=== PATIENT | female | born 1960 | race Caucasian/White ===

== ENCOUNTER 2021-03-03 15:42 | Inpatient (IN) | payer OTHER, SELFPAY ==
[2021-03-03] VITALS (15 sets, daily range): BP systolic 110–143; BP diastolic 73–87; PULSE 71–112; RESP 16–24; TEMP 36.6–38.3; O2SAT 96–100; BMI 24.2
--- NOTE | 2021-03-03 16:13 | DI.RAD.S_ITS ---
PROCEDURE: XR CHEST 1V INDICATIONS: suspected sepsis TECHNIQUE: One view of the chest was acquired. COMPARISON: None. FINDINGS: Surgical changes and devices: Right Port-A-Cath is present with distal tip projecting over the proximal SVC. Lungs and pleura: Lungs are clear. No pleural effusions or pneumothorax. Mediastinum: Mediastinal contours appear normal. Heart size is normal. Bones and chest wall: No suspicious bony lesions. Overlying soft tissues appear unremarkable. IMPRESSION: Lungs are clear. Dictated by: Brenda Warner M.D. on 03/03/2021 at 16:48 Approved by: Brenda Warner M.D. on 03/03/2021 at 16:48
--- NOTE | 2021-03-03 16:14 | DI.CT.S_ITS ---
PROCEDURE: CT CHEST ABD PEL WO CON INDICATIONS: fever, jaundice TECHNIQUE: After the administration of oral contrast, 5 mm thick sections acquired from the lung apices to the symphysis pubis. 5 mm thick coronal and sagittal reformats acquired, with additional 7 mm coronal MIP reformats through the lungs. For radiation dose reduction, the following was used: automated exposure control, adjustment of mA and/or kV according to patient size. COMPARISON: None. FINDINGS: Image quality: Excellent. CHEST: There is no acute airspace opacity. No significant pleural abnormality. Normal heart size. No pericardial effusion. Normal caliber thoracic aorta and main pulmonary trunk. Right chest wall central venous port catheter terminates in the SVC. No threshold enlarged thoracic lymph node by CT size criteria. No suspicious lytic or blastic osseous chest wall lesion. ABDOMEN: Unremarkable CT appearance of the liver, gallbladder, adrenal glands, and kidneys. There is fat stranding surrounding the head of the pancreas and in the remainder of the retroperitoneum with shoddy lymphadenopathy in this region. This is nonspecific, potentially representing appearance due to treated lymphoma, although would be difficult without prior imaging to exclude a recurrent or progressive component of lymphoma in this region. No abnormally dilated or thickened loop of bowel. There is fluid/liquid stool throughout the large bowel which may indicate a diarrheal illness. No pneumoperitoneum or free fluid. PELVIS: No free fluid. Uterus, adnexa, and urinary bladder within normal limits. No threshold enlarged pelvic or inguinal lymph node by CT size criteria. IMPRESSION: Fat stranding surrounding the pancreas with additional fat stranding in the retroperitoneum surrounding the aorta and IVC. Shotty lymphadenopathy in these regions is also present. Although considered unlikely, this could represent pancreatitis; correlate with lipase levels. It is considered more likely that these findings are due to the provided history of lymphoma. It is unknown without prior studies if this represents active lymphoma or chronic findings due to treated lymphoma, both of which can cause this appearance. Dictated by: Ketan Myers M.D. on 03/03/2021 at 18:03 Approved by: Ketan Myers M.D. on 03/03/2021 at 18:09
--- NOTE | 2021-03-03 16:14 | DI.CT.S_ITS ---
PROCEDURE: CT HEAD/BRAIN WO CON INDICATIONS: fever, vomiting TECHNIQUE: Noncontrast 4.5 mm thick angled axial sections acquired from the foramen magnum to the vertex, with coronal and sagittal reformats. For radiation dose reduction, the following was used: automated exposure control, adjustment of mA and/or kV according to patient size. COMPARISON: None. FINDINGS: Image quality: Excellent. CSF spaces: Basal cisterns are patent. No extra-axial fluid collections. The ventricles are symmetric in size and shape. Brain: No intracranial bleeds or masses. There is cerebral volume loss for age, with resultant ventricular and sulcal prominence. There are periventricular and deep white matter chronic small vessel ischemic changes. There is intracranial internal carotid artery atherosclerosis. Skull and face: Calvarium and visualized facial bones appear intact, without suspicious lesions. Sinuses: Visualized sinuses and mastoids are clear. IMPRESSION: No acute intracranial abnormality. Dictated by: Ketan Myers M.D. on 03/03/2021 at 17:27 Approved by: Ketan Myers M.D. on 03/03/2021 at 17:27
--- NOTE | 2021-03-03 16:15 | ED_ITS ---
HPI - Sepsis General Chief Complaint: Fever Mode of arrival: Wheelchair Source: patient and family Limitations: altered mental status Evaluation Narrative: This is a 60-year-old female who is brought in by her for possible fever and weakness for 2 days. Patient's states she has just been less activ e. She had a fever of 101 F at home. She did throw up on her way here on the. She has had several episodes of diarrhea. She denies headache. She denies chest pain or shortness of breath. She denies any abdominal back or flank pain. Her notes she has a history of meningitis several years ago and he thought this seems somewhat similar. She also has a history of cancer, she completed her treatment completed her oral medication treatment but does still have a port in place. Review of Systems Review of Systems ROS Unobtainable: Unobtainable due to medical condition Patient History Medical History Mantle cell lymphoma Social History Smoking Status: Never smoker Exam Narrative Exam Narrative: GEN: Female, alert and oriented, patient appears to be in moderate distress. Patient does answer questions but is not very forthcoming. She appears jaundiced. HEENT: Atraumatic, pupils are equal round reactive to light, extraocular movements are intact, no scleral icterus appreciated, nares are clear, TMs are clear with no fluid, there is no conjunctival pallor. Conjunctivae are slightly injected. Throat is clear without any exudates, erythema, tonsillar enlargement or uvular deviation HEART: Tachycardic but Regular rate and rhythm without murmur, clicks, rubs. Pulses are equal in upper and lower extremities LUNGS:Lungs clear to auscultation, no wheezes, rales, crackles, chest moves symmetrically, no tachypnea accessory muscle use. ABD:bowel sounds normal, soft, non-tender, no guarding, rebound, rigidity, no masses noted, no hepatosplenomegaly :No CVA tenderness MSCL: Non-tender, no muscle atrophy, patient does move extremities independently. NEURO:CN 2-12 intact, sensation normal, reflexes 2/4 upper and lower extremities. SKIN: Patient appears slightly jaundiced. No petechia, ecchymosis or other changes appreciated. Initial Vital Signs Initial Vital Signs: Vital Signs Temperature 98 F 03/03/21 16:14 Pulse Rate 112 H 03/03/21 16:14 Respiratory Rate 17 03/03/21 16:14 Blood Pressure 110/73 03/03/21 16:14 Pulse Oximetry 96 03/03/21 16:14 Course Orders Ordered: ED Orders 03/04/21 17:02 Gram Stain BC#2 Stat Gram Stain Pos BC Stat Acetaminophen (Acetaminophen 325 Mg Tablet) 650 mg PO Q6HR PRN PRN Reason: Fever/Mild Pain (1-3) Heparin Sodium (Porcine) (Heparin 5,000 Unit/Ml Vial) 5,000 unit SUBCUT BID DEZ Last Admin: 03/03/21 22:45 Dose: 5,000 unit Documented by: HUMPHREY Heparin Sodium (Porcine) (Heparin 5,000 Unit/Ml Vial) 5,000 unit SUBCUT BID DEZ Sodium Chloride (Normal Saline 0.9%) 1,000 mls @ 100 mls/hr IV CONT DEZ Last Admin: 03/03/21 22:57 Dose: 100 mls/hr Documented by: HUMPHREY Ceftriaxone Sodium 2 mg/ (Sodium Chloride) 100 mls @ 200 mls/hr IV Q24H DEZ Naloxone HCl (Naloxone 0.4 Mg/Ml Vial) 0.2 mg IV Q2MIN PRN PRN Reason: Opiate Reversal Ondansetron HCl (Ondansetron 4 Mg/2 Ml Inj) 4 mg IV Q6HR PRN PRN Reason: Nausea And Vomiting Last Admin: 03/03/21 18:02 Dose: 4 mg Documented by: NKECHI Ondansetron HCl (Ondansetron 4 Mg/2 Ml Inj) 4 mg IV Q8HR PRN PRN Reason: Nausea And Vomiting Vancomycin HCl (Vancomycin Per Pharmacy) 1 request MISC NOW ONE Stop: 03/04/21 06:40 Discontinued Medications Fluconazole (Fluconazole 150 Mg Tablet) 150 mg PO NOW ONE Stop: 03/04/21 00:44 Sodium Chloride (Normal Saline 0.9%) 1,000 mls @ 1,000 mls/hr IV BOLUS ONE Stop: 03/03/21 17:12 Last Infusion: 03/03/21 17:45 Dose: 0 mls/hr Documented by: Admin: 03/03/21 16:47 Dose: 1,000 mls/hr Documented by: LOIDA Sodium Chloride (Normal Saline 0.9%) 1,000 mls @ 1,000 mls/hr IV BOLUS ONE Stop: 03/03/21 17:13 Last Infusion: 03/03/21 20:01 Dose: 0 mls/hr Documented by: Admin: 03/03/21 17:47 Dose: 1,000 mls/hr Documented by: NKECHI Piperacillin Sod/Tazobactam (Sod 4.5 gm/ Sodium Chloride) 100 mls @ 200 mls/hr IV NOW ONE Stop: 03/03/21 17:49 Last Infusion: 03/03/21 18:52 Dose: 0 mls/hr Documented by: Infusion: 03/03/21 18:22 Dose: 200 mls/hr Documented by: Infusion: 03/03/21 17:58 Dose: 0 mls/hr Documented by: Admin: 03/03/21 17:58 Dose: 200 mls/hr Documented by: NKECHI POTASSIUM CHLORIDE IN WATER (Potassium Cl 10 Meq/100 Ml Aranza) 10 meq in 100 mls @ 100 mls/hr IV Q1H DEZ Stop: 03/03/21 21:59 Last Infusion: 03/04/21 01:18 Dose: 0 mls/hr Documented by: Admin: 03/03/21 22:49 Dose: 100 mls/hr Documented by: Infusion: 03/03/21 22:05 Dose: 100 mls/hr Documented by: Infusion: 03/03/21 21:06 Dose: 100 mls/hr Documented by: Admin: 03/03/21 21:05 Dose: 100 mls/hr Documented by: Infusion: 03/03/21 21:04 Dose: 0 mls/hr Documented by: Admin: 03/03/21 20:08 Dose: 100 mls/hr Documented by: Infusion: 03/03/21 20:01 Dose: 0 mls/hr Documented by: Admin: 03/03/21 19:01 Dose: 100 mls/hr Documented by: NKECHI Vancomycin HCl/Dextrose (Vancomycin) 2,000 mg in 400 mls @ 200 mls/hr IV NOW ONE Stop: 03/03/21 20:32 Last Infusion: 03/04/21 01:18 Dose: 0 mls/hr Documented by: Admin: 03/03/21 20:09 Dose: 200 mls/hr Documented by: LOIDA Fluconazole (Diflucan) 100 mg in 50 mls @ 100 mls/hr IV NOW ONE Stop: 03/03/21 21:15 Last Admin: 03/04/21 01:14 Dose: Not Given Documented by: HUMPHREY Ceftriaxone Sodium 1,000 mg/ (Sodium Chloride) 100 mls @ 200 mls/hr IV Q24H [facility] Last Infusion: 03/04/21 01:18 Dose: 0 mls/hr Documented by: Admin: 03/03/21 23:52 Dose: 200 mls/hr Documented by: HUMPHREY POTASSIUM CHLORIDE IN WATER (Potassium Cl 10 Meq/100 Ml Aranza) 10 meq in 100 mls @ 100 mls/hr IV Q1H DEZ Stop: 03/04/21 06:59 Last Admin: 03/04/21 06:36 Dose: 100 mls/hr Documented by: Infusion: 03/04/21 06:34 Dose: 100 mls/hr Documented by: Admin: 03/04/21 05:34 Dose: 100 mls/hr Documented by: Infusion: 03/04/21 05:32 Dose: 100 mls/hr Documented by: Admin: 03/04/21 04:32 Dose: 100 mls/hr Documented by: Infusion: 03/04/21 04:27 Dose: 100 mls/hr Documented by: Admin: 03/04/21 03:27 Dose: 100 mls/hr Documented by: Infusion: 03/04/21 03:23 Dose: 100 mls/hr Documented by: Admin: 03/04/21 02:23 Dose: 100 mls/hr Documented by: Infusion: 03/04/21 02:20 Dose: 100 mls/hr Documented by: Admin: 03/04/21 01:20 Dose: 100 mls/hr Documented by: HUMPHREY Potassium Chloride (Potassium Chloride 20 Meq Tab) 40 meq PO NOW ONE Stop: 03/04/21 00:53 Vital Signs Vital signs: Vital Signs - 8 hr 12/01/21 16:14 Temperature 98 F Pulse Rate 112 H Respiratory Rate 17 Blood Pressure 110/73 Pulse Oximetry 96 Sepsis Guideline Criteria Treatment Initiated Antibiotics:: IV antimicrobials will be initiated as soon as possible after recognition of sepsis state and within one hour for both sepsis and septic shock. MDM - Sepsis Lab Data Result diagrams: 03/04/21 06:46 03/04/21 06:46 Labs: Lab Results 03/03/21 03/03/21 03/03/21 Range/Units 16:10 17:02 17:02 WBC 18.8 H (4.5-11.0) X10^3/uL RBC 5.14 (4.0-5.2) X10^6/uL Hgb 14.3 (12.0-16.0) g/dL Hct 43.5 (36-46) % MCV 84.6 (80-100) fL MCH 27.9 (26-34) PG MCHC 33.0 (30-36) % RDW 17.2 H (11.6-14.8) % Plt Count 143 L (150-400) X10^3/uL Neut % (Auto) Not Reportable Lymph % (Auto) Not Reportable Stanly % (Auto) Not Reportable Eos % (Auto) Not Reportable Baso % (Auto) Not Reportable Lymph # (Auto) Not Reportable Stanly # (Auto) Not Reportable Baso # (Auto) Not Reportable Total Counted 100 Seg Neutrophils % 45.0 (38-70) % Band Neutrophils % 26.0 H (3-7) % Lymphocytes % (Manual) 13.0 L (25-45) % Monocytes % (Manual) 11.0 (2-11) % Metamyelocytes % 5.0 H (-0) % Neutrophils # (Manual) 14360 H (0034-9546) /uL RBC Morphology See below Poikilocytosis 1+ H Anisocytosis 1+ H PT (10.1-12.7) SECONDS INR (0.9-1.3) APTT (26.4-36.2) SECONDS Sodium 137 (137-145) mmol/L Potassium 3.0 L (3.4-5.1) mmol/L Chloride 98 (98-107) mmol/L Carbon Dioxide 25 (22-32) mmol/L BUN 37 H (7-17) mg/dL Creatinine 1.68 H (0.52-1.04) mg/dL Estimated GFR 30.9 L (>60) mL/min BUN/Creatinine Ratio 22.0 (6-22) Glucose 168 H (80-110) mg/dL Lactate (0.7-2.1) mmol/L Calcium 8.5 (8.4-10.2) mg/dL Total Bilirubin 0.7 (0.2-1.3) mg/dL AST 98 H (14-36) IU/L ALT 48 H (<35) IU/L Alkaline Phosphatase 85 (38-126) U/L Ammonia (9-30) umol/L Total Creatine Kinase (30-135) U/L CK-MB (CK-2) (<2.37) ng/mL CK-MB (CK-2) Rel Index (1.5-5.0) % Troponin I (0.01-0.034) ng/mL Total Protein 7.0 (6.3-8.2) g/dL Albumin 4.1 (3.5-5.0) g/dL Globulin 2.9 (1.7-4.1) g/dL Albumin/Globulin Ratio 1.4 (1.0-2.8) Amylase (30-110) U/L Lipase 67 (23-300) U/L Procalcitonin 51.4 H (<0.5) ng/mL Urine Color Urine Appearance Urine pH (4.5-8.0) Ur Specific [place] (1.000-1.035) Urine Protein (Negative) Urine Glucose (UA) (Negative) g/dL Urine Ketones (NEGATIVE) Urine Occult Blood (Negative) Urine Nitrate (Negative) Urine Bilirubin (NEGATIVE) Urine Urobilinogen (0.2) E.U./dL Ur Leukocyte Esterase (NEGATIVE) Urine RBC (0-5/HPF) Urine WBC (0-5/HPF) Ur Squamous Epith Cells (0-5/HPF) Amorphous Sediment Urine Bacteria (None) Urine Mucus (Negative) Urine Yeast (None) Ur Culture Indicated? Ethyl Alcohol ( - 10) mg/dL SARS-CoV-2 (PCR) Negative (Negative) 03/03/21 03/03/21 03/03/21 Range/Units 17:02 17:02 17:02 WBC (4.5-11.0) X10^3/uL RBC (4.0-5.2) X10^6/uL Hgb (12.0-16.0) g/dL Hct (36-46) % MCV (80-100) fL MCH (26-34) PG MCHC (30-36) % RDW (11.6-14.8) % Plt Count (150-400) X10^3/uL Neut % (Auto) Lymph % (Auto) Stanly % (Auto) Eos % (Auto) Baso % (Auto) Lymph # (Auto) Stanly # (Auto) Baso # (Auto) Total Counted Seg Neutrophils % (38-70) % Band Neutrophils % (3-7) % Lymphocytes % (Manual) (25-45) % Monocytes % (Manual) (2-11) % Metamyelocytes % (-0) % Neutrophils # (Manual) (9230-1368) /uL RBC Morphology Poikilocytosis Anisocytosis PT 21.3 H (10.1-12.7) SECONDS INR 1.9 H (0.9-1.3) APTT 36 (26.4-36.2) SECONDS Sodium (137-145) mmol/L Potassium (3.4-5.1) mmol/L Chloride (98-107) mmol/L Carbon Dioxide (22-32) mmol/L BUN (7-17) mg/dL Creatinine (0.52-1.04) mg/dL Estimated GFR (>60) mL/min BUN/Creatinine Ratio (6-22) Glucose (80-110) mg/dL Lactate 3.4 H (0.7-2.1) mmol/L Calcium (8.4-10.2) mg/dL Total Bilirubin (0.2-1.3) mg/dL AST (14-36) IU/L ALT (<35) IU/L Alkaline Phosphatase (38-126) U/L Ammonia (9-30) umol/L Total Creatine Kinase 343 H (30-135) U/L CK-MB (CK-2) 0.92 (<2.37) ng/mL CK-MB (CK-2) Rel Index 0.3 L (1.5-5.0) % Troponin I 0.013 (0.01-0.034) ng/mL Total Protein (6.3-8.2) g/dL Albumin (3.5-5.0) g/dL Globulin (1.7-4.1) g/dL Albumin/Globulin Ratio (1.0-2.8) Amylase (30-110) U/L Lipase (23-300) U/L Procalcitonin (<0.5) ng/mL Urine Color Urine Appearance Urine pH (4.5-8.0) Ur Specific [place] (1.000-1.035) Urine Protein (Negative) Urine Glucose (UA) (Negative) g/dL Urine Ketones (NEGATIVE) Urine Occult Blood (Negative) Urine Nitrate (Negative) Urine Bilirubin (NEGATIVE) Urine Urobilinogen (0.2) E.U./dL Ur Leukocyte Esterase (NEGATIVE) Urine RBC (0-5/HPF) Urine WBC (0-5/HPF) Ur Squamous Epith Cells (0-5/HPF) Amorphous Sediment Urine Bacteria (None) Urine Mucus (Negative) Urine Yeast (None) Ur Culture Indicated? Ethyl Alcohol ( - 10) mg/dL SARS-CoV-2 (PCR) (Negative) 03/03/21 03/03/21 03/03/21 Range/Units 17:02 17:02 17:02 WBC (4.5-11.0) X10^3/uL RBC (4.0-5.2) X10^6/uL Hgb (12.0-16.0) g/dL Hct (36-46) % MCV (80-100) fL MCH (26-34) PG MCHC (30-36) % RDW (11.6-14.8) % Plt Count (150-400) X10^3/uL Neut % (Auto) Lymph % (Auto) Stanly % (Auto) Eos % (Auto) Baso % (Auto) Lymph # (Auto) Stanly # (Auto) Baso # (Auto) Total Counted Seg Neutrophils % (38-70) % Band Neutrophils % (3-7) % Lymphocytes % (Manual) (25-45) % Monocytes % (Manual) (2-11) % Metamyelocytes % (-0) % Neutrophils # (Manual) (2507-6136) /uL RBC Morphology Poikilocytosis Anisocytosis PT (10.1-12.7) SECONDS INR (0.9-1.3) APTT (26.4-36.2) SECONDS Sodium (137-145) mmol/L Potassium (3.4-5.1) mmol/L Chloride (98-107) mmol/L Carbon Dioxide (22-32) mmol/L BUN (7-17) mg/dL Creatinine (0.52-1.04) mg/dL Estimated GFR (>60) mL/min BUN/Creatinine Ratio (6-22) Glucose (80-110) mg/dL Lactate (0.7-2.1) mmol/L Calcium (8.4-10.2) mg/dL Total Bilirubin (0.2-1.3) mg/dL AST (14-36) IU/L ALT (<35) IU/L Alkaline Phosphatase (38-126) U/L Ammonia < 9 L (9-30) umol/L Total Creatine Kinase (30-135) U/L CK-MB (CK-2) (<2.37) ng/mL CK-MB (CK-2) Rel Index (1.5-5.0) % Troponin I (0.01-0.034) ng/mL Total Protein (6.3-8.2) g/dL Albumin (3.5-5.0) g/dL Globulin (1.7-4.1) g/dL Albumin/Globulin Ratio (1.0-2.8) Amylase 50 (30-110) U/L Lipase (23-300) U/L Procalcitonin (<0.5) ng/mL Urine Color Urine Appearance Urine pH (4.5-8.0) Ur Specific [place] (1.000-1.035) Urine Protein (Negative) Urine Glucose (UA) (Negative) g/dL Urine Ketones (NEGATIVE) Urine Occult Blood (Negative) Urine Nitrate (Negative) Urine Bilirubin (NEGATIVE) Urine Urobilinogen (0.2) E.U./dL Ur Leukocyte Esterase (NEGATIVE) Urine RBC (0-5/HPF) Urine WBC (0-5/HPF) Ur Squamous Epith Cells (0-5/HPF) Amorphous Sediment Urine Bacteria (None) Urine Mucus (Negative) Urine Yeast (None) Ur Culture Indicated? Ethyl Alcohol < 10 ( - 10) mg/dL SARS-CoV-2 (PCR) (Negative) 03/03/21 03/03/21 03/03/21 Range/Units 18:47 19:49 20:31 WBC (4.5-11.0) X10^3/uL RBC (4.0-5.2) X10^6/uL Hgb (12.0-16.0) g/dL Hct (36-46) % MCV (80-100) fL MCH (26-34) PG MCHC (30-36) % RDW (11.6-14.8) % Plt Count (150-400) X10^3/uL Neut % (Auto) Lymph % (Auto) Stanly % (Auto) Eos % (Auto) Baso % (Auto) Lymph # (Auto) Stanly # (Auto) Baso # (Auto) Total Counted Seg Neutrophils % (38-70) % Band Neutrophils % (3-7) % Lymphocytes % (Manual) (25-45) % Monocytes % (Manual) (2-11) % Metamyelocytes % (-0) % Neutrophils # (Manual) (8295-3940) /uL RBC Morphology Poikilocytosis Anisocytosis PT (10.1-12.7) SECONDS INR (0.9-1.3) APTT (26.4-36.2) SECONDS Sodium (137-145) mmol/L Potassium (3.4-5.1) mmol/L Chloride (98-107) mmol/L Carbon Dioxide (22-32) mmol/L BUN (7-17) mg/dL Creatinine (0.52-1.04) mg/dL Estimated GFR (>60) mL/min BUN/Creatinine Ratio (6-22) Glucose (80-110) mg/dL Lactate 4.1 H* (0.7-2.1) mmol/L Calcium (8.4-10.2) mg/dL Total Bilirubin (0.2-1.3) mg/dL AST (14-36) IU/L ALT (<35) IU/L Alkaline Phosphatase (38-126) U/L Ammonia (9-30) umol/L Total Creatine Kinase (30-135) U/L CK-MB (CK-2) (<2.37) ng/mL CK-MB (CK-2) Rel Index (1.5-5.0) % Troponin I (0.01-0.034) ng/mL Total Protein (6.3-8.2) g/dL Albumin (3.5-5.0) g/dL Globulin (1.7-4.1) g/dL Albumin/Globulin Ratio (1.0-2.8) Amylase (30-110) U/L Lipase (23-300) U/L Procalcitonin (<0.5) ng/mL Urine Color Yellow Urine Appearance Sl cloudy Urine pH 5.0 (4.5-8.0) Ur Specific [place] 1.020 (1.000-1.035) Urine Protein 2+ H (Negative) Urine Glucose (UA) Negative (Negative) g/dL Urine Ketones Trace H (NEGATIVE) Urine Occult Blood 3+ H (Negative) Urine Nitrate Positive H (Negative) Urine Bilirubin Negative (NEGATIVE) Urine Urobilinogen 0.2 (0.2) E.U./dL Ur Leukocyte Esterase Negative (NEGATIVE) Urine RBC 5-10/hpf H (0-5/HPF) Urine WBC 1-5/hpf (0-5/HPF) Ur Squamous Epith Cells 1-5 /hpf (0-5/HPF) Amorphous Sediment 2+ Urine Bacteria Moderate (10-30) H (None) Urine Mucus 1+ H (Negative) Urine Yeast 10-30/hpf H (None) Ur Culture Indicated? Specimen cultured Ethyl Alcohol ( - 10) mg/dL SARS-CoV-2 (PCR) Negative (Negative) Imaging Data CT scan - head: Radiologist's Impression: [place] [address] CT Scan Report Signed Patient: Yamile Valle MR#: [id number] : 1960 Acct:[id number] Age/Sex: 60 / F Date of Service: 03/03/21 Loc: ED Accession Number: [id number] ?? Procedure: CT head/brain wo con Ordering Provider: Michaelle Waterman D.O. PROCEDURE:? CT HEAD/BRAIN WO CON ? INDICATIONS:? fever, vomiting ? TECHNIQUE:? Noncontrast 4.5 mm thick angled axial sections acquired from the foramen magnum to the vertex, with coronal and sagittal reformats.? For radiation dose reduction, the following was used:? automated exposure control, adjustment of mA and/or kV according to patient size.? ? COMPARISON:? None. ? FINDINGS:? Image quality:? Excellent.? ? CSF spaces:? Basal cisterns are patent.? No extra-axial fluid collections.? The ventricles are symmetric in size and shape.? ? Brain:? No intracranial bleeds or masses.? There is cerebral volume loss for age, with resultant ventricular and sulcal prominence.? There are periventricular and deep white matter chronic small vessel ischemic changes.? There is intracranial internal carotid artery atherosclerosis.? ? Skull and face:? Calvarium and visualized facial bones appear intact, without suspicious lesions.? ? Sinuses:? Visualized sinuses and mastoids are clear.? ? IMPRESSION:? No acute intracranial abnormality. ? ? Dictated by: Ketan Myers M.D. on 03/03/2021 at 17:27 ? ? Approved by: Ketan Myers M.D. on 03/03/2021 at 17:27?? CT scan - abdomen/pelvis: Radiologist's Impression: [place] [address] CT Scan Report Signed Patient: Yamile Valle MR#: [id number] : 1960 Acct:[id number] Age/Sex: 60 / F Date of Service: 03/03/21 Loc: ED Accession Number: [id number] ?? Procedure: CT chest abd pel wo con Ordering Provider: Michaelle Waterman D.O. PROCEDURE:? CT CHEST ABD PEL WO CON ? INDICATIONS:? fever, jaundice ? TECHNIQUE:? After the administration of oral contrast, 5 mm thick sections acquired from the lung apices to the symphysis pubis.? 5 mm thick coronal and sagittal reformats acquired, with additional 7 mm coronal MIP reformats through the lungs.? For radiation dose reduction, the following was used:? automated exposure control, adjustment of mA and/or kV according to patient size.? ? COMPARISON:? None. ? FINDINGS:? Image quality:? Excellent.? ? CHEST:? There is no acute airspace opacity.? No significant pleural abnormality.? Normal heart size.? No pericardial effusion.? Normal caliber thoracic aorta and main pulmonary trunk.? Right chest wall central venous port catheter terminates in the SVC.? No threshold enlarged thoracic lymph node by CT size criteria.? No suspicious lytic or blastic osseous chest wall lesion. ? ABDOMEN:? Unremarkable CT appearance of the liver, gallbladder, adrenal glands, and kidneys.? There is fat stranding surrounding the head of the pancreas and in the remainder of the retroperitoneum with shoddy lymphadenopathy in this region.? This is nonspecific, potentially representing appearance due to treated lymphoma, although would be difficult without prior imaging to exclude a recurrent or progressive component of lymph al in this region. ? No abnormally dilated or thickened loop of bowel.? There is fluid/liquid stool throughout the large bowel which may indicate a diarrheal illness.? No pneumoperitoneum or free fluid. ? PELVIS:? No free fluid.? Uterus, adnexa, and urinary bladder within normal limits.? No threshold enlarged pelvic or inguinal lymph node by CT size criteria. ? IMPRESSION: ? Fat stranding surrounding the pancreas with additional fat stranding in the retroperitoneum surrounding the aorta and IVC.? Shotty lymphadenopathy in these regions is also present.? Although considered unlikely, this could represent pancreatitis; correlate with lipase levels.? It is considered more likely that these findings are due to the provided history of lymphoma.? It is unknown without prior studies if this represents active lymphoma or chronic findings due to treated lymphoma, both of which can cause this appearance.? ? Dictated by: Ketan Myers M.D. on 03/03/2021 at 18:03 ? ? Approved by: Ketan Myers M.D. on 03/03/2021 at 18:09?? ECG Data Attestation: I personally reviewed and interpreted this ECG as follows: Interpretation: Tachycardia, rate of 103 AK 138 QRS 80 QTC of 476. No acute ST changes noted. MDM Narrative Medical decision making narrative: This is a 60-year-old female coming to the emergency department for fever at home described. Patient has had weakness, she has had 2 episodes vomiting and several episodes of diarrhea at home. She has had a history of mantle cell lymphoma and has completed her treatment. The is unable to tell me if she has other medical issues or is taking daily medications. Patient seems a little confused but otherwise answers questions such as how she is feeling her labs show multiple abnormalities and suspect sepsis. Patient was initiated on a 30cc/kg bolus IV antibiotics were initiated there was concerned initially about cholangitis is patient appeared to be jaundiced but after she was cleansed from her vomiting her jaundice was no longer present. She does have leukocytosis, positive procalcitonin, she has hypokalemia with decreased renal function. According to her she does not have any known renal dysfunction. And mildly elevated liver enzymes. CT of her head is negative, chest x-ray is negative and CT chest/abdomen and pelvis was obtained without contrast secondary decreased renal function which shows stranding and changes around the pancreas but no other clear cause. Attempting to obtain a UA. Repeat lactate being obtained. Patient signed out to Dr. Power while awaiting urine sample. Plan for admission to hospitalist. Discharge Plan Departure Patient Disposition: Admitted As Inpatient Clinical Impression: Sepsis, Urinary tract infection Admit Date/Time: 03/03/21 20:46 Admit Provider: Patti Valderrama
[2021-03-03 16:31] LABS: COVID19 -Nasal RAPID Negative (Negative)
[2021-03-03] MEDS: SODIUM CHLORIDE 0.9% 1,000 ML 1000 ML IV ×2 (16:47→17:47)
[2021-03-03 17:25] LABS: INR 1.9 (0.9-1.3); Prothrombin Time 21.3 SECONDS (10.1-12.7)
[2021-03-03 17:27] LABS: PTT Partial Thromboplastin Tim 36 SECONDS (26.4-36.2)
[2021-03-03 17:28] LABS: Ammonia (NH3) < 9 umol/L (9-30); Hematocrit 43.5 % (36-46); Hemoglobin 14.3 g/dL (12.0-16.0); Mean Corpuscular Hemoglobin 27.9 PG (26-34); Mean Corpuscular Volume 84.6 fL (80-100); Platelet Count 143 X10^3/uL (150-400); Red Blood Cell Count 5.14 X10^6/uL (4.0-5.2); Red Cell Distribution Width 17.2 % (11.6-14.8); White Blood Cell Count 18.8 X10^3/uL (4.5-11.0)
[2021-03-03 17:29] LABS: Lactate (Lactic Acid) 3.4 mmol/L (0.7-2.1)
[2021-03-03 17:30] LABS: Alanine Aminotransferase 48 IU/L (<35); Albumin 4.1 g/dL (3.5-5.0); Albumin Globulin Ratio 1.4 (1.0-2.8); Alkaline Phosphatase 85 U/L (38-126); Aspartate Aminotransferase 98 IU/L (14-36); Bilirubin Total 0.7 mg/dL (0.2-1.3); Blood Urea Nitrogen 37 mg/dL (7-17); Calcium 8.5 mg/dL (8.4-10.2); Carbon Dioxide 25 mmol/L (22-32); Chloride 98 mmol/L (98-107); Creatine Kinase 343 U/L (30-135); Estimated Glomerular Filt Rate 30.9 mL/min (>60); Globulin 2.9 g/dL (1.7-4.1); Glucose 168 mg/dL (80-110); HEMOLYSIS < 15 (0-50); Lipase 67 U/L (23-300); Sodium 137 mmol/L (137-145)
[2021-03-03 17:33] LABS: Add Manual Diff / Slide Review YES
[2021-03-03 17:42] LABS: Troponin I 0.013 ng/mL (0.01-0.034)
[2021-03-03 17:45] LABS: Neutrophils Absolute Manual 13348 /uL (3000-5900); Total Cells Counted 100
[2021-03-03 17:46] LABS: Anisocytosis 1+; CKMB % Relative Index 0.3 % (1.5-5.0); Creatine Kinase MB 0.92 ng/mL (<2.37); Poikilocytosis 1+; Procalcitonin 51.4 ng/mL (<0.5)
[2021-03-03] MEDS: PIPERACILLIN/TAZO 4.5 GM in SODIUM CHLORIDE 0.9% 100 ML 200 ML IV (17:58)
[2021-03-03] MEDS: ONDANSETRON 4 MG/2 ML INJ IV (18:02)
[2021-03-03] MEDS: POTASSIUM CHLORIDE IN WATER 10 MEQ/100 ML PIGGYBACK 100 MEQ IV ×4 (19:01→22:49)
[2021-03-03 19:11] LABS: Reflexed Lactate in 2 Hours Y
[2021-03-03 19:59] LABS: Amylase 50 U/L (30-110); Ethanol (ETOH) < 10 mg/dL
[2021-03-03] MEDS: VANCOMYCIN 2,000 MG/400 ML PIGGYBACK 200 MG IV (20:09)
[2021-03-03 20:15] LABS: COVID19 - ADMIT (NP swab/PCR) Negative (Negative)
[2021-03-03 20:32] LABS: Lactate 2HR (Lactic Acid Rflx) 4.1 mmol/L (0.7-2.1)
--- NOTE | 2021-03-03 20:33 | PC.NURSE ---
Lab reported critical Lactate of 4.1, Dr Power notified at this time.
[2021-03-03 20:36] LABS: Appearance Urine UA SL CLOUDY; Bilirubin Urine UA NEGATIVE (NEGATIVE); Color Urine UA YELLOW; Glucose Urine UA NEGATIVE (Negative); Ketones Urine UA TRACE (NEGATIVE); Leukocyte Esterase Urine UA NEGATIVE (NEGATIVE); Nitrite Urine UA POSITIVE (Negative); Occult Blood Urine UA 3+ (Negative); Protein Urine UA 2+ (Negative); Urobilinogen Urine UA 0.2 E.U./dL (0.2)
[2021-03-03 20:43] LABS: Amorphous Sediment Urine 2+; RBC Urine 5-10/HPF (0-5/HPF); Squamous Epithelial Cell Urine 1-5 /HPF (0-5/HPF); WBC Urine 1-5/HPF (0-5/HPF)
[2021-03-03 20:44] LABS: Bacteria Urine Moderate (10-30); Culture Indicated Urine Specimen Cultured; Mucus Urine 1+ (Negative)
--- NOTE | 2021-03-03 21:56 | PC.ADMIT ---
Addendum entered by Shilo Guevara R.N. 03/03/21 21:58: Admission questions completed with to the best of his ability. Patient unable to answer assessment questions. states he is not sure if she takes any home medications, I don't think so. Patient unable to clarify. Original Note: [address] Admission Note: Patient arrived from ED with at bedside. Transferred to new bed via slide board. Patient somnolent and oriented only to self. Responds to name and will sometimes answer simple questions. Resting comfortably in bed. Awaiting further orders from provider. The patient,Yamile Valle,60 y/o, was given written information regarding hospital policies, unit procedures and contact persons. Patient's smoking status: Never smoker. Vital Signs - 8 hr 03/03/21 16:14 03/03/21 16:37 03/03/21 17:00 Temperature 98 F Pulse Rate 112 H 104 H 100 H Respiratory Rate 17 22 24 Blood Pressure 110/73 Pulse Oximetry 96 99 100 03/03/21 17:30 03/03/21 18:00 03/03/21 18:30 Temperature Pulse Rate 96 H 100 H 105 H Respiratory Rate 22 22 22 Blood Pressure 137/84 140/86 Pulse Oximetry 100 100 98 03/03/21 18:47 03/03/21 19:00 03/03/21 19:30 Temperature Pulse Rate 98 H 105 H 112 H Respiratory Rate 24 22 24 Blood Pressure 143/87 H 137/87 Pulse Oximetry 98 99 98 03/03/21 20:00 03/03/21 20:30 03/03/21 20:36 Temperature 100.9 F H Pulse Rate 108 H 95 H Respiratory Rate 24 24 Blood Pressure Pulse Oximetry 99 96 03/03/21 21:00 03/03/21 21:09 Temperature 100.8 F H 100.8 F H Pulse Rate 102 H 102 H Respiratory Rate 16 16 Blood Pressure 127/74 127/74 Pulse Oximetry 97 97
[2021-03-03] MEDS: HEPARIN 5,000 UNIT/ML VIAL 5000 UNIT SUBCUT (22:45)
[2021-03-03] MEDS: SODIUM CHLORIDE 0.9% 1,000 ML 100 ML IV (22:57)
[2021-03-03 23:04] LABS: BUN Creatinine Ratio 20.4 (6-22); Blood Urea Nitrogen 28 mg/dL (7-17); Calcium 8.3 mg/dL (8.4-10.2); Carbon Dioxide 25 mmol/L (22-32); Chloride 102 mmol/L (98-107); Estimated Glomerular Filt Rate 39.1 mL/min (>60); Glucose 162 mg/dL (80-110); HEMOLYSIS < 15 (0-50); Potassium 2.9 mmol/L (3.4-5.1); Sodium 139 mmol/L (137-145)
[2021-03-03 23:20] LABS: Lactate (Lactic Acid) 2.2 mmol/L (0.7-2.1)
[2021-03-03] MEDS: cefTRIAXone 1,000 MG in SODIUM CHLORIDE 0.9% 100 ML 200 ML IV (23:52)
--- NOTE | 2021-03-04 00:34 | P.HP_ITS ---
History of Present Illness History of Present Illness Chief complaint: fever/weakness x2 days Narrative: Yamile Valle is a 60-year-old female who is brought in by her for possible fever and weakness for 2 days.? Patient is unable to provide a history and this history is directly quoted from the ED note. Patient's states she has just been less active.? She had a fever of 101 F at home.? She did throw up on her way here on the.? She has had several episodes of diarrhea.? She d enies headache.? She denies chest pain or shortness of breath.? She denies any abdominal back or flank pain.? Her notes she has a history of meningitis several years ago and he thought this seems somewhat similar.? She also has a history of cancer, she completed her treatment completed her oral medication treatment but does still have a port in place. Head CT in the emergency department was negative for any acute intracranial abnormality however did comment on cerebral volume loss for age, with ?resultant ventricular and sulcal prominence, periventricular and deep white matter chronic small-vessel ischemic changes and intracranial internal carotid artery atherosclerosis. CT of the chest abdomen and pelvis indicated for ?at stranding surrounding the pancreas with additional fat stranding in the retroperitoneum surrounding the aorta and IVC. It also noted shotty lymphadenopathy in concerning for pancreatitis though the patient has a normal lipase. That also commented that this could be consistent with the provided history of lymphoma. Chest x-ray was negative. Patient is febrile at 100.1, blood pressure 131/78, heart rate 71, respiratory rate 21, oxygen saturation of 96% on room air she weighs 68.1 kg with a BMI of 24.2. Her WBC is elevated at 18.8, platelet count 143, she has a band count percentage of 26%, metamyelocytes 5%, neutrophil count of 13,000, sodium 139, potassium 2.9, BUN 28, creatinine 1.37 down from 1.68 on admission to the ED, she GFR is 39.1, glucose 162, lactate peaked at 4.1 and is currently 2.2, calcium 8.3, AST 98, ALT 48, ammonia is normal, total creatinine kinase is 343, CK-MB is .3%, and procalcitonin is 51.4. Urine is grossly positive for UTI and is pending for culture. Alcohol level was within normal limits. Patient History Medical History Mantle cell lymphoma Family & Social History Family history unavailable: Yes Safety & Behavioral: Feels Safe in Current Unwilling to Answer Environment Been Physically Hurt or Unwilling to Answer Threatened By a Person Tobacco & Substance use: Smoking Status Never smoker alcohol intake frequency holiday/special occasion Substance Use Type does not use Meds Home Medications and Allergies Allergies Allergy/AdvReac Type Severity Reaction Status Date / Time No Known Drug Allergies Allergy Verified 03/03/21 16:18 Review of Systems Review of Systems ROS: Yes unobtainable due to mental status Exam Vital Signs (past 8 hours): - 03/03/21 16:37 03/03/21 17:00 03/03/21 17:30 Temperature Pulse Rate 104 H 100 H 96 H Respiratory Rate 22 24 22 Blood Pressure 137/84 Pulse Oximetry 99 100 100 03/03/21 18:00 03/03/21 18:30 03/03/21 18:47 Temperature Pulse Rate 100 H 105 H 98 H Respiratory Rate 22 22 24 Blood Pressure 140/86 143/87 H Pulse Oximetry 100 98 98 03/03/21 19:00 03/03/21 19:30 03/03/21 20:00 Temperature Pulse Rate 105 H 112 H 108 H Respiratory Rate 22 24 24 Blood Pressure 137/87 Pulse Oximetry 99 98 99 03/03/21 20:30 03/03/21 20:36 03/03/21 21:00 Temperature 100.9 F H 100.8 F H Pulse Rate 95 H 102 H Respiratory Rate 24 16 Blood Pressure 127/74 Pulse Oximetry 96 97 03/03/21 21:09 03/03/21 23:12 Temperature 100.8 F H 100.1 F H Pulse Rate 102 H 71 Respiratory Rate 16 21 Blood Pressure 127/74 131/78 Pulse Oximetry 97 96 Oxygen Delivery Method Room Air Narrative Exam Narrative: Gen: Alert, confused, well-developed 60y.o. female, appears older than stated age HEENT: normocephalic, atraumatic, conjunctiva clear, sclera non-icteric, oral mucosa pink and moist Neck: supple, full ROM, no JVD, trachea is midline Resp: Lungs CTA, non-labored breathing Chest: port in right upper chest, no s/s infection and dressing intact CV: RRR, no murmur or rubs Abd: soft, non-tender, normoactive BTs Skin: no lesions or rashes, dry and intact Neuro: Unable to speak in full sentences, but no word salad. Extremities: negative Lisandro?s sign Psyche: normal mood and affect. Objective Labs Result Diagrams: 03/03/21 17:02 03/03/21 22:34 Labs: Laboratory Results - last 24 hr 03/03/21 03/03/21 03/03/21 16:10 17:02 17:02 WBC 18.8 H RBC 5.14 Hgb 14.3 Hct 43.5 MCV 84.6 MCH 27.9 MCHC 33.0 RDW 17.2 H Plt Count 143 L Neut % (Auto) Not Reportable Lymph % (Auto) Not Reportable [place] % (Auto) Not Reportable Eos % (Auto) Not Reportable Baso % (Auto) Not Reportable Lymph # (Auto) Not Reportable [place] # (Auto) Not Reportable Baso # (Auto) Not Reportable Total Counted 100 Seg Neutrophils % 45.0 Band Neutrophils % 26.0 H Lymphocytes % (Manual) 13.0 L Monocytes % (Manual) 11.0 Metamyelocytes % 5.0 H Neutrophils # (Manual) 42282 H RBC Morphology See below Poikilocytosis 1+ H Anisocytosis 1+ H PT INR APTT Sodium 137 Potassium 3.0 L Chloride 98 Carbon Dioxide 25 BUN 37 H Creatinine 1.68 H Estimated GFR 30.9 L BUN/Creatinine Ratio 22.0 Glucose 168 H Lactate Calcium 8.5 Total Bilirubin 0.7 AST 98 H ALT 48 H Alkaline Phosphatase 85 Ammonia Total Creatine Kinase CK-MB (CK-2) CK-MB (CK-2) Rel Index Troponin I Total Protein 7.0 Albumin 4.1 Globulin 2.9 Albumin/Globulin Ratio 1.4 Amylase Lipase 67 Procalcitonin 51.4 H Urine Color Urine Appearance Urine pH Ur Specific [place] Urine Protein Urine Glucose (UA) Urine Ketones Urine Occult Blood Urine Nitrate Urine Bilirubin Urine Urobilinogen Ur Leukocyte Esterase Urine RBC Urine WBC Ur Squamous Epith Cells Amorphous Sediment Urine Bacteria Urine Mucus Urine Yeast Ur Culture Indicated? Ethyl Alcohol SARS-CoV-2 (PCR) Negative 03/03/21 03/03/21 03/03/21 17:02 17:02 17:02 WBC RBC Hgb Hct MCV MCH MCHC RDW Plt Count Neut % (Auto) Lymph % (Auto) [place] % (Auto) Eos % (Auto) Baso % (Auto) Lymph # (Auto) [place] # (Auto) Baso # (Auto) Total Counted Seg Neutrophils % Band Neutrophils % Lymphocytes % (Manual) Monocytes % (Manual) Metamyelocytes % Neutrophils # (Manual) RBC Morphology Poikilocytosis Anisocytosis PT 21.3 H INR 1.9 H APTT 36 Sodium Potassium Chloride Carbon Dioxide BUN Creatinine Estimated GFR BUN/Creatinine Ratio Glucose Lactate 3.4 H Calcium Total Bilirubin AST ALT Alkaline Phosphatase Ammonia Total Creatine Kinase 343 H CK-MB (CK-2) 0.92 CK-MB (CK-2) Rel Index 0.3 L Troponin I 0.013 Total Protein Albumin Globulin Albumin/Globulin Ratio Amylase Lipase Procalcitonin Urine Color Urine Appearance Urine pH Ur Specific [place] Urine Protein Urine Glucose (UA) Urine Ketones Urine Occult Blood Urine Nitrate Urine Bilirubin Urine Urobilinogen Ur Leukocyte Esterase Urine RBC Urine WBC Ur Squamous Epith Cells Amorphous Sediment Urine Bacteria Urine Mucus Urine Yeast Ur Culture Indicated? Ethyl Alcohol SARS-CoV-2 (PCR) 03/03/21 03/03/21 03/03/21 17:02 17:02 17:02 WBC RBC Hgb Hct MCV MCH MCHC RDW Plt Count Neut % (Auto) Lymph % (Auto) [place] % (Auto) Eos % (Auto) Baso % (Auto) Lymph # (Auto) [place] # (Auto) Baso # (Auto) Total Counted Seg Neutrophils % Band Neutrophils % Lymphocytes % (Manual) Monocytes % (Manual) Metamyelocytes % Neutrophils # (Manual) RBC Morphology Poikilocytosis Anisocytosis PT INR APTT Sodium Potassium Chloride Carbon Dioxide BUN Creatinine Estimated GFR BUN/Creatinine Ratio Glucose Lactate Calcium Total Bilirubin AST ALT Alkaline Phosphatase Ammonia < 9 L Total Creatine Kinase CK-MB (CK-2) CK-MB (CK-2) Rel Index Troponin I Total Protein Albumin Globulin Albumin/Globulin Ratio Amylase 50 Lipase Procalcitonin Urine Color Urine Appearance Urine pH Ur Specific [place] Urine Protein Urine Glucose (UA) Urine Ketones Urine Occult Blood Urine Nitrate Urine Bilirubin Urine Urobilinogen Ur Leukocyte Esterase Urine RBC Urine WBC Ur Squamous Epith Cells Amorphous Sediment Urine Bacteria Urine Mucus Urine Yeast Ur Culture Indicated? Ethyl Alcohol < 10 SARS-CoV-2 (PCR) 03/03/21 03/03/21 03/03/21 18:47 19:49 20:31 WBC RBC Hgb Hct MCV MCH MCHC RDW Plt Count Neut % (Auto) Lymph % (Auto) [place] % (Auto) Eos % (Auto) Baso % (Auto) Lymph # (Auto) [place] # (Auto) Baso # (Auto) Total Counted Seg Neutrophils % Band Neutrophils % Lymphocytes % (Manual) Monocytes % (Manual) Metamyelocytes % Neutrophils # (Manual) RBC Morphology Poikilocytosis Anisocytosis PT INR APTT Sodium Potassium Chloride Carbon Dioxide BUN Creatinine Estimated GFR BUN/Creatinine Ratio Glucose Lactate 4.1 H* Calcium Total Bilirubin AST ALT Alkaline Phosphatase Ammonia Total Creatine Kinase CK-MB (CK-2) CK-MB (CK-2) Rel Index Troponin I Total Protein Albumin Globulin Albumin/Globulin Ratio Amylase Lipase Procalcitonin Urine Color Yellow Urine Appearance Sl cloudy Urine pH 5.0 Ur Specific [place] 1.020 Urine Protein 2+ H Urine Glucose (UA) Negative Urine Ketones Trace H Urine Occult Blood 3+ H Urine Nitrate Positive H Urine Bilirubin Negative Urine Urobilinogen 0.2 Ur Leukocyte Esterase Negative Urine RBC 5-10/hpf H Urine WBC 1-5/hpf Ur Squamous Epith Cells 1-5 /hpf Amorphous Sediment 2+ Urine Bacteria Moderate (10-30) H Urine Mucus 1+ H Urine Yeast 10-30/hpf H Ur Culture Indicated? Specimen cultured Ethyl Alcohol SARS-CoV-2 (PCR) Negative 03/03/21 03/03/21 22:34 22:44 WBC RBC Hgb Hct MCV MCH MCHC RDW Plt Count Neut % (Auto) Lymph % (Auto) [place] % (Auto) Eos % (Auto) Baso % (Auto) Lymph # (Auto) [place] # (Auto) Baso # (Auto) Total Counted Seg Neutrophils % Band Neutrophils % Lymphocytes % (Manual) Monocytes % (Manual) Metamyelocytes % Neutrophils # (Manual) RBC Morphology Poikilocytosis Anisocytosis PT INR APTT Sodium 139 Potassium 2.9 L Chloride 102 Carbon Dioxide 25 BUN 28 H Creatinine 1.37 H Estimated GFR 39.1 L BUN/Creatinine Ratio 20.4 Glucose 162 H Lactate 2.2 H Calcium 8.3 L Total Bilirubin AST ALT Alkaline Phosphatase Ammonia Total Creatine Kinase CK-MB (CK-2) CK-MB (CK-2) Rel Index Troponin I Total Protein Albumin Globulin Albumin/Globulin Ratio Amylase Lipase Procalcitonin Urine Color Urine Appearance Urine pH Ur Specific [place] Urine Protein Urine Glucose (UA) Urine Ketones Urine Occult Blood Urine Nitrate Urine Bilirubin Urine Urobilinogen Ur Leukocyte Esterase Urine RBC Urine WBC Ur Squamous Epith Cells Amorphous Sediment Urine Bacteria Urine Mucus Urine Yeast Ur Culture Indicated? Ethyl Alcohol SARS-CoV-2 (PCR) Assessment & Plan Assessment & Plan narrative: Yamile Valle is admitted for management of sepsis secondary to a urinary tract infection. 1. Sepsis secondary to Urinary tract infection, acute and present on admission * She is initiated on IV ceftriaxone 1 g daily * Due to acute urinary retention nursing has placed a Siddiqi * Cultures are pending * Sofa score is 3 2. Acute metabolic encephalopathy, present on admission * Potassium of 2.9 will be repleted with 60 mEq riders and 40 mEq oral x1 recheck potassium in the morning 3. Acute kidney injury unknown if chronic * Creatinine was initially 1.67 with the EGFR of 30.1 and both values are improving with fluid hydration * I have ordered renal ultrasound for the morning to assess whether she has hydronephrosis 4. Suspected pancreatitis with a normal lipase, acute, present on admission * She had a normal lipase and will be repeated tomorrow morning. * CT findings appear to indicate possible acute pancreatitis * She was given IV Zosyn in the emergency department may continue if further delineation and confirmation of pancreatitis 5. History of meningitis * Consider LP if no improvement VTE Prophylaxis: Wells risk score 1 X Bilateral SCDs subQ heparin 5000 units twice daily Patient is admitted to the inpatient service due to the severity of disease, risks of further disease progression and this stay is expected to exceed 2 midnights. FEN: IV fluids: Normal saline at 100 mL/hour diet: General, labs: CBC, C/BMP, liver enzymes, Mag, PT/INR Consultants None Dispo: Unknown at this time Code status: Patient unable to provide so she has assumed to be full code and w ill attempt to discuss this way and the patient in the morning or her . [X] I have utilized all available immediate resources to obtain, update, or review of the patient's current medications COVID-19 COVID-19 status: Negative Result date/Date tested (Pos, Neg/Pending): 03/03/21 Time Spent With Patient Critical Care time: I spent a total of [] minutes of critical care time on this patient's care today; this time is exclusive of procedural time. Scores GCS Cristhian coma scale eye opening: Spontaneous [place] coma scale verbal response: Confused Cristhian coma scale motor response: Obey commands [place] coma scale total score: 14 SOFA PaO2/FIO2: >=400 mmHg Platelets: < 150 Bilirubin: < 1.2 mg/dL Hypotension: MAP >= 70 mmHg Cristhian Coma Scale: 13-14 Renal: Creatinine 1.2-1.9 mg/dL SOFA Score: 3 Wells' Criteria for PE Clinical signs and symptoms of DVT: No PE is #1 Dx or equally likely: No Heart rate > 100: No Immobilization at least 3 days or surg in previous 4 weeks: No History of PE or DVT: No Hemoptysis: No Malignancy w/Treatment within 6 months or palliative: Yes Wells' PE Score total: 1 Quality VTE Deep Vein Thrombosis/Pulmonary Embolism Present on Admission: No MIPS - Admit The patient?s Advance Care plan is not present because I confirmed today that the patient does not wish or was not able to name a surrogate decision maker or provide an Advance Care Plan.: Yes MIPS - DC The patient has current or prior documentation of left ventricular ejection fraction (LVEF) less than 40%, or moderate or severely depressed left ventricular systolic function.: No
[2021-03-04 01:12] LABS: Reflexed Lactate in 2 Hours Y
[2021-03-04] MEDS: POTASSIUM CHLORIDE IN WATER 10 MEQ/100 ML PIGGYBACK 100 MEQ IV ×6 (01:20→06:36)
[2021-03-04 02:55] LABS: Lactate 2HR (Lactic Acid Rflx) 1.5 mmol/L (0.7-2.1)
[2021-03-04 05:30] VITALS: BP 133/74; PULSE 105; RESP 16; TEMP 37.5; O2SAT 99
[2021-03-04 06:02] LABS: Acinetobacter baumannii Not Detected (Not Detect); Candida albicans Not Detected (Not Detect); Candida glabrata Not Detected (Not Detect); Candida krusei Not Detected (Not Detect); Candida parapsilosis Not Detected (Not Detect); Candida tropicalis Not Detected (Not Detect); E. coli Not Detected (Not Detect); Enterobacter cloacae complex Not Detected (Not Detect); Enterobacteriaceae species Not Detected (Not Detect); Enterococcus species Not Detected (Not Detect); Haemophilus influenzae Not Detected (Not Detect); Listeria monocytogenes Not Detected (Not Detect); Neisseria meningitidis Not Detected (Not Detect); Proteus species Not Detected (Not Detect); Pseudomonas aeruginosa Not Detected (Not Detect); Serratia marcescens Not Detected (Not Detect); Staphylococcus species Not Detected (Not Detect); Streptococcus agalactiae (Gr B Not Detected (Not Detect); Streptococcus pneumonia Detected (Not Detect); Streptococcus pyogenes (Gr A) Not Detected (Not Detect); Streptococcus species Detected (Not Detect)
[2021-03-04 06:53] LABS: Hematocrit 38.2 % (36-46); Hemoglobin 12.7 g/dL (12.0-16.0); Mean Corpuscular HGB Conc 33.3 % (30-36); Mean Corpuscular Hemoglobin 27.9 PG (26-34); Mean Corpuscular Volume 83.9 fL (80-100); Platelet Count 116 X10^3/uL (150-400); Red Blood Cell Count 4.55 X10^6/uL (4.0-5.2); Red Cell Distribution Width 16.9 % (11.6-14.8); White Blood Cell Count 16.6 X10^3/uL (4.5-11.0)
[2021-03-04 07:08] LABS: BUN Creatinine Ratio 23.2 (6-22); Blood Urea Nitrogen 22 mg/dL (7-17); Calcium 8.2 mg/dL (8.4-10.2); Carbon Dioxide 21 mmol/L (22-32); Chloride 105 mmol/L (98-107); Estimated Glomerular Filt Rate 59.6 mL/min (>60); Glucose 144 mg/dL (80-110); HEMOLYSIS 38 (0-50); Potassium 3.6 mmol/L (3.4-5.1); Sodium 135 mmol/L (137-145)
[2021-03-04 07:09] LABS: Alanine Aminotransferase 40 IU/L (<35); Albumin 3.6 g/dL (3.5-5.0); Albumin Globulin Ratio 1.4 (1.0-2.8); Alkaline Phosphatase 57 U/L (38-126); Aspartate Aminotransferase 76 IU/L (14-36); Bilirubin Total 0.7 mg/dL (0.2-1.3); Bilirubin Unconjugated 0.5 mg/dL (0.0-1.1); Globulin 2.6 g/dL (1.7-4.1); HEMOLYSIS 38 (0-50); Total Protein 6.2 g/dL (6.3-8.2)
[2021-03-04 07:19] LABS: Add Manual Diff / Slide Review YES; Lipase 352 U/L (23-300); Magnesium 1.7 mg/dL (1.6-2.3)
[2021-03-04 07:25] LABS: Anisocytosis 2+; Neutrophils Absolute Manual 8798 /uL (3000-5900); Nucleated Red Blood Cells 1 #/Diff; Smudge Cells 2+; Total Cells Counted 100
[2021-03-04 07:26] LABS: Target Cells 1+
[2021-03-04 07:27] LABS: Burr Cells 1+
[2021-03-04 08:24] VITALS: BP 130/76; PULSE 101; RESP 16; TEMP 37.1; O2SAT 98
[2021-03-04] MEDS: SODIUM CHLORIDE 0.9% 1,000 ML 100 ML IV (09:15)
[2021-03-04] MEDS: HEPARIN 5,000 UNIT/ML VIAL 5000 UNIT SUBCUT ×2 (09:16→20:25)
--- NOTE | 2021-03-04 11:11 | P.PN_ITS ---
Subjective Subjective Date Patient Seen: 03/04/21 Time Patient Seen: 11:11 Interval history: 60-year-old female with a history of mantle cell carcinoma and acute bacterial meningitis admitted to the hospital with fever, weakness, confusion which progressed over the past 2 days. The patient remains confused and is unable to provide any history. She is febrile. She was empirically started on ceftriaxone and vancomycin for presumed meningitis. The patient has a remote history of meningitis 3 years ago. According to her his symptoms appear similar. Exam Vital Signs (past 8 hours): - 03/04/21 05:30 03/04/21 08:24 Temperature 99.5 F 98.7 F Pulse Rate 105 H 101 H Respiratory Rate 16 16 Blood Pressure 133/74 130/76 Pulse Oximetry 99 98 Oxygen Delivery Method Room Air Oxygen Flow Rate 0 Narrative Exam Narrative: Ill-appearing ill-appearing confused female lying in bed HENMT Other: Normocephalic atraumatic, neck, nuchal rigidity noted Resp Other: Lungs clear to auscultation Cardio Other: Cardiac exam: Regular rate and rhythm normal S1-S2 GI Other: Abdomen: Soft nontender nondistended Other: Siddiqi catheter in place Back/Spine/Pelvis Other: No lesions Skin Other: Cool and clammy, no lesion Extrem Other: No edema Psych Other: Confused female lying in bed moaning Objective Labs Result Diagrams: 03/04/21 06:46 03/04/21 06:46 Labs: Laboratory Results - last 24 hr 03/03/21 03/03/21 03/03/21 16:10 17:02 17:02 WBC 18.8 H RBC 5.14 Hgb 14.3 Hct 43.5 MCV 84.6 MCH 27.9 MCHC 33.0 RDW 17.2 H Plt Count 143 L Neut % (Auto) Not Reportable Lymph % (Auto) Not Reportable [place] % (Auto) Not Reportable Eos % (Auto) Not Reportable Baso % (Auto) Not Reportable Lymph # (Auto) Not Reportable [place] # (Auto) Not Reportable Baso # (Auto) Not Reportable Total Counted 100 Seg Neutrophils % 45.0 Band Neutrophils % 26.0 H Lymphocytes % (Manual) 13.0 L Monocytes % (Manual) 11.0 Metamyelocytes % 5.0 H Neutrophils # (Manual) 43441 H Nucleated RBCs Smudge Cells RBC Morphology See below Poikilocytosis 1+ H Anisocytosis 1+ H Target Cells Jeannette Cells PT INR APTT Sodium 137 Potassium 3.0 L Chloride 98 Carbon Dioxide 25 BUN 37 H Creatinine 1.68 H Estimated GFR 30.9 L BUN/Creatinine Ratio 22.0 Glucose 168 H Lactate Calcium 8.5 Magnesium Total Bilirubin 0.7 Conjugated Bilirubin Unconjugated Bilirubin AST 98 H ALT 48 H Alkaline Phosphatase 85 Ammonia Total Creatine Kinase CK-MB (CK-2) CK-MB (CK-2) Rel Index Troponin I Total Protein 7.0 Albumin 4.1 Globulin 2.9 Albumin/Globulin Ratio 1.4 Amylase Lipase 67 Procalcitonin 51.4 H Urine Color Urine Appearance Urine pH Ur Specific Muir Urine Protein Urine Glucose (UA) Urine Ketones Urine Occult Blood Urine Nitrate Urine Bilirubin Urine Urobilinogen Ur Leukocyte Esterase Urine RBC Urine WBC Ur Squamous Epith Cells Amorphous Sediment Urine Bacteria Urine Mucus Urine Yeast Ur Culture Indicated? Ethyl Alcohol A. baumannii (PCR) Cynthia albicans (PCR) C. glabrata (PCR) C. krusei (PCR) C. parapsilosis (PCR) C. tropicalis (PCR) SARS-CoV-2 (PCR) Negative Enterobacteriac sp PCR E. cloacae complex PCR Enterococcus sp PCR E. coli (PCR) H. influenzae (PCR) Klebsiella oxytoca PCR Klebsiella pneumoniae List. monocytogenes PCR N. meningitidis (PCR) Proteus species (PCR) Serratia marcescens PCR Staphylococcus sp PCR Staph aureus (PCR) mecA-Methicil Res Gene Streptococcus sp PCR Group A Strep (PCR) Strep agalactiae (PCR) Strep pneumoniae (PCR) P. aeruginosa (PCR) Keegan/B-Vanco Res Genes KPC-Carbap Res Gene PCR 03/03/21 03/03/21 03/03/21 17:02 17:02 17:02 WBC RBC Hgb Hct MCV MCH MCHC RDW Plt Count Neut % (Auto) Lymph % (Auto) [place] % (Auto) Eos % (Auto) Baso % (Auto) Lymph # (Auto) [place] # (Auto) Baso # (Auto) Total Counted Seg Neutrophils % Band Neutrophils % Lymphocytes % (Manual) Monocytes % (Manual) Metamyelocytes % Neutrophils # (Manual) Nucleated RBCs Smudge Cells RBC Morphology Poikilocytosis Anisocytosis Target Cells Jeannette Cells PT 21.3 H INR 1.9 H APTT 36 Sodium Potassium Chloride Carbon Dioxide BUN Creatinine Estimated GFR BUN/Creatinine Ratio Glucose Lactate 3.4 H Calcium Magnesium Total Bilirubin Conjugated Bilirubin Unconjugated Bilirubin AST ALT Alkaline Phosphatase Ammonia Total Creatine Kinase 343 H CK-MB (CK-2) 0.92 CK-MB (CK-2) Rel Index 0.3 L Troponin I 0.013 Total Protein Albumin Globulin Albumin/Globulin Ratio Amylase Lipase Procalcitonin Urine Color Urine Appearance Urine pH Ur Specific Muir Urine Protein Urine Glucose (UA) Urine Ketones Urine Occult Blood Urine Nitrate Urine Bilirubin Urine Urobilinogen Ur Leukocyte Esterase Urine RBC Urine WBC Ur Squamous Epith Cells Amorphous Sediment Urine Bacteria Urine Mucus Urine Yeast Ur Culture Indicated? Ethyl Alcohol A. baumannii (PCR) Cynthia albicans (PCR) C. glabrata (PCR) C. krusei (PCR) C. parapsilosis (PCR) C. tropicalis (PCR) SARS-CoV-2 (PCR) Enterobacteriac sp PCR E. cloacae complex PCR Enterococcus sp PCR E. coli (PCR) H. influenzae (PCR) Klebsiella oxytoca PCR Klebsiella pneumoniae List. monocytogenes PCR N. meningitidis (PCR) Proteus species (PCR) Serratia marcescens PCR Staphylococcus sp PCR Staph aureus (PCR) mecA-Methicil Res Gene Streptococcus sp PCR Group A Strep (PCR) Strep agalactiae (PCR) Strep pneumoniae (PCR) P. aeruginosa (PCR) Keegan/B-Vanco Res Genes KPC-Carbap Res Gene PCR 03/03/21 03/03/21 03/03/21 17:02 17:02 17:02 WBC RBC Hgb Hct MCV MCH MCHC RDW Plt Count Neut % (Auto) Lymph % (Auto) [place] % (Auto) Eos % (Auto) Baso % (Auto) Lymph # (Auto) [place] # (Auto) Baso # (Auto) Total Counted Seg Neutrophils % Band Neutrophils % Lymphocytes % (Manual) Monocytes % (Manual) Metamyelocytes % Neutrophils # (Manual) Nucleated RBCs Smudge Cells RBC Morphology Poikilocytosis Anisocytosis Target Cells Jeannette Cells PT INR APTT Sodium Potassium Chloride Carbon Dioxide BUN Creatinine Estimated GFR BUN/Creatinine Ratio Glucose Lactate Calcium Magnesium Total Bilirubin Conjugated Bilirubin Unconjugated Bilirubin AST ALT Alkaline Phosphatase Ammonia < 9 L Total Creatine Kinase CK-MB (CK-2) CK-MB (CK-2) Rel Index Troponin I Total Protein Albumin Globulin Albumin/Globulin Ratio Amylase 50 Lipase Procalcitonin Urine Color Urine Appearance Urine pH Ur Specific Muir Urine Protein Urine Glucose (UA) Urine Ketones Urine Occult Blood Urine Nitrate Urine Bilirubin Urine Urobilinogen Ur Leukocyte Esterase Urine RBC Urine WBC Ur Squamous Epith Cells Amorphous Sediment Urine Bacteria Urine Mucus Urine Yeast Ur Culture Indicated? Ethyl Alcohol < 10 A. baumannii (PCR) Cynthia albicans (PCR) C. glabrata (PCR) C. krusei (PCR) C. parapsilosis (PCR) C. tropicalis (PCR) SARS-CoV-2 (PCR) Enterobacteriac sp PCR E. cloacae complex PCR Enterococcus sp PCR E. coli (PCR) H. influenzae (PCR) Klebsiella oxytoca PCR Klebsiella pneumoniae List. monocytogenes PCR N. meningitidis (PCR) Proteus species (PCR) Serratia marcescens PCR Staphylococcus sp PCR Staph aureus (PCR) mecA-Methicil Res Gene Streptococcus sp PCR Group A Strep (PCR) Strep agalactiae (PCR) Strep pneumoniae (PCR) P. aeruginosa (PCR) Keegan/B-Vanco Res Genes KPC-Carbap Res Gene PCR 03/03/21 03/03/21 03/03/21 18:47 19:49 20:31 WBC RBC Hgb Hct MCV MCH MCHC RDW Plt Count Neut % (Auto) Lymph % (Auto) [place] % (Auto) Eos % (Auto) Baso % (Auto) Lymph # (Auto) [place] # (Auto) Baso # (Auto) Total Counted Seg Neutrophils % Band Neutrophils % Lymphocytes % (Manual) Monocytes % (Manual) Metamyelocytes % Neutrophils # (Manual) Nucleated RBCs Smudge Cells RBC Morphology Poikilocytosis Anisocytosis Target Cells Jeannette Cells PT INR APTT Sodium Potassium Chloride Carbon Dioxide BUN Creatinine Estimated GFR BUN/Creatinine Ratio Glucose Lactate 4.1 H* Calcium Magnesium Total Bilirubin Conjugated Bilirubin Unconjugated Bilirubin AST ALT Alkaline Phosphatase Ammonia Total Creatine Kinase CK-MB (CK-2) CK-MB (CK-2) Rel Index Troponin I Total Protein Albumin Globulin Albumin/Globulin Ratio Amylase Lipase Procalcitonin Urine Color Yellow Urine Appearance Sl cloudy Urine pH 5.0 Ur Specific Muir 1.020 Urine Protein 2+ H Urine Glucose (UA) Negative Urine Ketones Trace H Urine Occult Blood 3+ H Urine Nitrate Positive H Urine Bilirubin Negative Urine Urobilinogen 0.2 Ur Leukocyte Esterase Negative Urine RBC 5-10/hpf H Urine WBC 1-5/hpf Ur Squamous Epith Cells 1-5 /hpf Amorphous Sediment 2+ Urine Bacteria Moderate (10-30) H Urine Mucus 1+ H Urine Yeast 10-30/hpf H Ur Culture Indicated? Specimen cultured Ethyl Alcohol A. baumannii (PCR) Cynthia albicans (PCR) C. glabrata (PCR) C. krusei (PCR) C. parapsilosis (PCR) C. tropicalis (PCR) SARS-CoV-2 (PCR) Negative Enterobacteriac sp PCR E. cloacae complex PCR Enterococcus sp PCR E. coli (PCR) H. influenzae (PCR) Klebsiella oxytoca PCR Klebsiella pneumoniae List. monocytogenes PCR N. meningitidis (PCR) Proteus species (PCR) Serratia marcescens PCR Staphylococcus sp PCR Staph aureus (PCR) mecA-Methicil Res Gene Streptococcus sp PCR Group A Strep (PCR) Strep agalactiae (PCR) Strep pneumoniae (PCR) P. aeruginosa (PCR) Keegan/B-Vanco Res Genes KPC-Carbap Res Gene PCR 03/03/21 03/03/21 03/04/21 22:34 22:44 02:41 WBC RBC Hgb Hct MCV MCH MCHC RDW Plt Count Neut % (Auto) Lymph % (Auto) [place] % (Auto) Eos % (Auto) Baso % (Auto) Lymph # (Auto) [place] # (Auto) Baso # (Auto) Total Counted Seg Neutrophils % Band Neutrophils % Lymphocytes % (Manual) Monocytes % (Manual) Metamyelocytes % Neutrophils # (Manual) Nucleated RBCs Smudge Cells RBC Morphology Poikilocytosis Anisocytosis Target Cells Jeannette Cells PT INR APTT Sodium 139 Potassium 2.9 L Chloride 102 Carbon Dioxide 25 BUN 28 H Creatinine 1.37 H Estimated GFR 39.1 L BUN/Creatinine Ratio 20.4 Glucose 162 H Lactate 2.2 H 1.5 Calcium 8.3 L Magnesium Total Bilirubin Conjugated Bilirubin Unconjugated Bilirubin AST ALT Alkaline Phosphatase Ammonia Total Creatine Kinase CK-MB (CK-2) CK-MB (CK-2) Rel Index Troponin I Total Protein Albumin Globulin Albumin/Globulin Ratio Amylase Lipase Procalcitonin Urine Color Urine Appearance Urine pH Ur Specific [place] Urine Protein Urine Glucose (UA) Urine Ketones Urine Occult Blood Urine Nitrate Urine Bilirubin Urine Urobilinogen Ur Leukocyte Esterase Urine RBC Urine WBC Ur Squamous Epith Cells Amorphous Sediment Urine Bacteria Urine Mucus Urine Yeast Ur Culture Indicated? Ethyl Alcohol A. baumannii (PCR) Cynthia albicans (PCR) C. glabrata (PCR) C. krusei (PCR) C. parapsilosis (PCR) C. tropicalis (PCR) SARS-CoV-2 (PCR) Enterobacteriac sp PCR E. cloacae complex PCR Enterococcus sp PCR E. coli (PCR) H. influenzae (PCR) Klebsiella oxytoca PCR Klebsiella pneumoniae List. monocytogenes PCR N. meningitidis (PCR) Proteus species (PCR) Serratia marcescens PCR Staphylococcus sp PCR Staph aureus (PCR) mecA-Methicil Res Gene Streptococcus sp PCR Group A Strep (PCR) Strep agalactiae (PCR) Strep pneumoniae (PCR) P. aeruginosa (PCR) Keegan/B-Vanco Res Genes KPC-Carbap Res Gene PCR 03/04/21 03/04/21 03/04/21 06:46 06:46 06:46 WBC 16.6 H RBC 4.55 Hgb 12.7 Hct 38.2 MCV 83.9 MCH 27.9 MCHC 33.3 RDW 16.9 H Plt Count 116 L Neut % (Auto) Not Reportable Lymph % (Auto) Not Reportable [place] % (Auto) Not Reportable Eos % (Auto) Not Reportable Baso % (Auto) Not Reportable Lymph # (Auto) Not Reportable [place] # (Auto) Not Reportable Baso # (Auto) Not Reportable Total Counted 100 Seg Neutrophils % 53.0 Band Neutrophils % Lymphocytes % (Manual) 18.0 L Monocytes % (Manual) 29.0 H Metamyelocytes % Neutrophils # (Manual) 8798 H Nucleated RBCs 1 H Smudge Cells 2+ H RBC Morphology See below Poikilocytosis Anisocytosis 2+ H Target Cells 1+ H Melly Cells 1+ H PT INR APTT Sodium Potassium Chloride Carbon Dioxide BUN Creatinine Estimated GFR BUN/Creatinine Ratio Glucose Lactate Calcium Magnesium 1.7 Total Bilirubin 0.7 Conjugated Bilirubin 0.0 Unconjugated Bilirubin 0.5 AST 76 H ALT 40 H Alkaline Phosphatase 57 Ammonia Total Creatine Kinase CK-MB (CK-2) CK-MB (CK-2) Rel Index Troponin I Total Protein 6.2 L Albumin 3.6 Globulin 2.6 Albumin/Globulin Ratio 1.4 Amylase Lipase Procalcitonin Urine Color Urine Appearance Urine pH Ur Specific Mu[place] Urine Protein Urine Glucose (UA) Urine Ketones Urine Occult Blood Urine Nitrate Urine Bilirubin Urine Urobilinogen Ur Leukocyte Esterase Urine RBC Urine WBC Ur Squamous Epith Cells Amorphous Sediment Urine Bacteria Urine Mucus Urine Yeast Ur Culture Indicated? Ethyl Alcohol A. baumannii (PCR) Cynthia albicans (PCR) C. glabrata (PCR) C. krusei (PCR) C. parapsilosis (PCR) C. tropicalis (PCR) SARS-CoV-2 (PCR) Enterobacteriac sp PCR E. cloacae complex PCR Enterococcus sp PCR E. coli (PCR) H. influenzae (PCR) Klebsiella oxytoca PCR Klebsiella pneumoniae List. monocytogenes PCR N. meningitidis (PCR) Proteus species (PCR) Serratia marcescens PCR Staphylococcus sp PCR Staph aureus (PCR) mecA-Methicil Res Gene Streptococcus sp PCR Group A Strep (PCR) Strep agalactiae (PCR) Strep pneumoniae (PCR) P. aeruginosa (PCR) Keegan/B-Vanco Res Genes KPC-Carbap Res Gene PCR 03/04/21 03/04/21 03/04/21 06:46 06:46 17:02 WBC RBC Hgb Hct MCV MCH MCHC RDW Plt Count Neut % (Auto) Lymph % (Auto) [place] % (Auto) Eos % (Auto) Baso % (Auto) Lymph # (Auto) [place] # (Auto) Baso # (Auto) Total Counted Seg Neutrophils % Band Neutrophils % Lymphocytes % (Manual) Monocytes % (Manual) Metamyelocytes % Neutrophils # (Manual) Nucleated RBCs Smudge Cells RBC Morphology Poikilocytosis Anisocytosis Target Cells Melly Cells PT INR APTT Sodium 135 L Potassium 3.6 Chloride 105 Carbon Dioxide 21 L BUN 22 H Creatinine 0.95 Estimated GFR 59.6 L BUN/Creatinine Ratio 23.2 H Glucose 144 H Lactate Calcium 8.2 L Magnesium Total Bilirubin Conjugated Bilirubin Unconjugated Bilirubin AST ALT Alkaline Phosphatase Ammonia Total Creatine Kinase CK-MB (CK-2) CK-MB (CK-2) Rel Index Troponin I Total Protein Albumin Globulin Albumin/Globulin Ratio Amylase Lipase 352 H D Procalcitonin Urine Color Urine Appearance Urine pH Ur Specific [place] Urine Protein Urine Glucose (UA) Urine Ketones Urine Occult Blood Urine Nitrate Urine Bilirubin Urine Urobilinogen Ur Leukocyte Esterase Urine RBC Urine WBC Ur Squamous Epith Cells Amorphous Sediment Urine Bacteria Urine Mucus Urine Yeast Ur Culture Indicated? Ethyl Alcohol A. baumannii (PCR) Not detected Cynthia albicans (PCR) Not detected C. glabrata (PCR) Not detected C. krusei (PCR) Not detected C. parapsilosis (PCR) Not detected C. tropicalis (PCR) Not detected SARS-CoV-2 (PCR) Enterobacteriac sp PCR Not detected E. cloacae complex PCR Not detected Enterococcus sp PCR Not detected E. coli (PCR) Not detected H. influenzae (PCR) Not detected Klebsiella oxytoca PCR Not detected Klebsiella pneumoniae Not detected List. monocytogenes PCR Not detected N. meningitidis (PCR) Not detected Proteus species (PCR) Not detected Serratia marcescens PCR Not detected Staphylococcus sp PCR Not detected Staph aureus (PCR) Not detected mecA-Methicil Res Gene Not Reportable Streptococcus sp PCR Detected H Group A Strep (PCR) Not detected Strep agalactiae (PCR) Not detected Strep pneumoniae (PCR) Detected H P. aeruginosa (PCR) Not detected Keegan/B-Vanco Res Genes Not Reportable KPC-Carbap Res Gene PCR Not Reportable [facility] Medical History Mantle cell lymphoma Social History Smoking Status: Never smoker Assessment & Plan Assessment & Plan narrative: 1. Severe sepsis -manifested by acute renal failure, creatinine 1.37, now improved -acute metabolic encephalopathy -probable bacterial meningitis -white count 16.6, initial lactate 3.4, left shift, procalcitonin markedly elevated at 51.4 -no evidence of hypotension at this time, still febrile -lumbar puncture completed, awaiting CSF results -continue IV ceftriaxone and vancomycin -blood cultures positive for strep pneumonia, making pneumococcal meningitis likely 2. Probable urinary tract infection -urine culture growing Gram-negative bacilli -awaiting final culture and sensitivity, continue IV ceftriaxone 3. Acute kidney injury -likely related to underlying severe infection -continue IV hydration -will avoid nephrotoxic agent -will follow closely 4. Elevated lipase, abnormal CT -doubt pancreatitis, but will follow closely 5. Hypokalemia -resolved I have utilized all available methods to review update and confirm current medications Time Spent With Patient Critical Care time: I spent a total of [] minutes of critical care time on this patient's care today; this time is exclusive of procedural time. Quality VTE Deep Vein Thrombosis/Pulmonary Embolism Present on Admission: No
[2021-03-04] MEDS: LACTATED RINGERS 1,000 ML 1000 ML IV (11:45)
[2021-03-04 12:09] VITALS: BP 114/64; PULSE 93; RESP 16; TEMP 38.4; O2SAT 96
[2021-03-04 12:11] LABS: Glucose CSF < 20 mg/dL (40-70); Total Protein CSF 1447 mg/dL (12-60)
[2021-03-04 12:28] LABS: Lactate (Lactic Acid) 3.1 mmol/L (0.7-2.1)
[2021-03-04 12:46] LABS: Procalcitonin 25.3 ng/mL (<0.5)
[2021-03-04 12:51] LABS: Red Blood Cell CSF 25 RBC /uL; White Blood Cell CSF 18 MONO/uL (0-5)
[2021-03-04] MEDS: ACETAMINOPHEN 650 MG SUPP PR ×2 (13:04→18:58)
[2021-03-04 13:05] LABS: Appearance CSF Slightly Cloudy (Clear); CSF Tube Number 3; CSF Tube Volume 1.5 mL; Color CSF Xanthochromic (Colorless); Mononuclear WBC CSF 48 %; Polynuclear WBC CSF 52 %
[2021-03-04] MEDS: VANCOMYCIN 1,000 MG/200 ML PIGGYBACK 200 MG IV (13:05)
[2021-03-04 14:00] LABS: Reflexed Lactate in 2 Hours Y
--- NOTE | 2021-03-04 15:30 | CM.DANOTE ---
DC Plan Assessment (brief) Patient is 60yo F admission diagnoses of sepsis, UTI. Patient is not able to be assessed due to altered mental status. Patient's spouse provided information for assessment. Patient, at baseline, is fully independent, uses no adaptive devices or DME, no home O2 use, no current IV therapies (prior chemo), no dialysis. Patient has no history with SNF or HH. Prior private pay caregiver when patient was recovering from chemo. Patient resides with spouse in [place]; spouse will be ride home at time of discharge. Insurance: [employer] P: patient is anticipated to dc home with spouse. No identified discharge plannings needs at this time. Spouse to provide transportation. CM will follow throughout clinical course of admission. Christ Buitrago [facility] Discharge Planning/Care Management CM Discharge Assessment Start: 03/04/21 15:26 Freq: Status: Active Protocol: Document 03/04/21 15:26 HS (Rec: 03/04/21 15:30 HS [id number]) Discharge Planning Assessment Assigned Employee Wellness/Fitness Coordinator Christ Buitrago [facility] DPOA/Assigned Designee Name Pardeep Valle Contact Information [phone] Advance Directives? No History Provided By Family Member,Medical Record Has Patient been admitted in last 30 No days? Prior Living Arrangements House Household Members spouse Type of transporation used prior to Drives own vehicle admit Independent with ADL's Yes Is patient alert and oriented? No Caregiver for Another No Barriers to Discharge No Discharge Plan Home Transportation Arrangement Spouse Pardeep Jamir Updated in Patient Room with No name and ext. # of Employee Wellness/Fitness Coordinator Comment Not able to update whiteboard due to precautions Review Status In Process Next Review Type Continued Stay Review
[2021-03-04 15:44] LABS: Lactate 2HR (Lactic Acid Rflx) 1.2 mmol/L (0.7-2.1)
[2021-03-04] MEDS: MAGNESIUM SULFATE 2 GM/50 ML PIGGYBACK IV (16:18)
[2021-03-04] MEDS: DEXTROSE 5%-LACTATED RINGERS 1,000 ML 125 ML IV (16:18)
[2021-03-04 17:00] VITALS: BP 113/50; PULSE 88; RESP 16; TEMP 38.4; O2SAT 99
[2021-03-04 18:58] VITALS: TEMP 38.3
[2021-03-04 20:42] VITALS: BP 108/59; PULSE 87; RESP 24; TEMP 38; O2SAT 96
[2021-03-04] MEDS: diphenhydrAMINE 50 MG/ML VIAL 25 MG IV (21:41)
[2021-03-05] VITALS (7 sets, daily range): BP systolic 116–134; BP diastolic 62–71; PULSE 69–90; RESP 14–18; TEMP 37.1–39; O2SAT 94–99
[2021-03-05] MEDS: VANCOMYCIN 1,000 MG/200 ML PIGGYBACK 200 MG IV ×2 (00:19→13:27)
[2021-03-05] MEDS: DEXTROSE 5%-LACTATED RINGERS 1,000 ML 125 ML IV ×2 (03:30→15:36)
--- NOTE | 2021-03-05 06:14 | PC.NURSE ---
Patient rubbing right eye throughout shift. Skin around eye is red and irritated and sclera is reddened. Provider notified, IV Benadryl ordered, and promptly administered. Applying cool compresses and reorienting patient frequently.
[2021-03-05 06:28] LABS: Hematocrit 35.3 % (36-46); Hemoglobin 11.9 g/dL (12.0-16.0); Mean Corpuscular HGB Conc 33.6 % (30-36); Mean Corpuscular Hemoglobin 28.2 PG (26-34); Mean Corpuscular Volume 83.9 fL (80-100); Platelet Count 95 X10^3/uL (150-400); Red Blood Cell Count 4.21 X10^6/uL (4.0-5.2); Red Cell Distribution Width 17.1 % (11.6-14.8); White Blood Cell Count 9.7 X10^3/uL (4.5-11.0)
[2021-03-05 06:33] LABS: Add Manual Diff / Slide Review YES
[2021-03-05 06:53] LABS: Magnesium 2.4 mg/dL (1.6-2.3)
[2021-03-05 06:54] LABS: Alanine Aminotransferase 28 IU/L (<35); Albumin Globulin Ratio 1.1 (1.0-2.8); Alkaline Phosphatase 53 U/L (38-126); Aspartate Aminotransferase 46 IU/L (14-36); Bilirubin Total 0.7 mg/dL (0.2-1.3); Bilirubin Unconjugated 0.6 mg/dL (0.0-1.1); Globulin 2.8 g/dL (1.7-4.1); HEMOLYSIS < 15 (0-50); Total Protein 5.8 g/dL (6.3-8.2)
[2021-03-05 07:02] LABS: BUN Creatinine Ratio 21.2 (6-22); Blood Urea Nitrogen 14 mg/dL (7-17); Calcium 8.3 mg/dL (8.4-10.2); Carbon Dioxide 30 mmol/L (22-32); Chloride 104 mmol/L (98-107); Estimated Glomerular Filt Rate > 60.0 mL/min (>60); Glucose 164 mg/dL (80-110); HEMOLYSIS 18 (0-50); Sodium 139 mmol/L (137-145)
[2021-03-05 08:10] LABS: Potassium 2.7 mmol/L (3.4-5.1)
[2021-03-05 08:31] LABS: Neutrophils Absolute Manual 5723 /uL (3000-5900); Total Cells Counted 100
[2021-03-05 08:34] LABS: Anisocytosis 1+; Target Cells 1+
[2021-03-05 08:53] LABS: HBsAg Screen Negative (Negative); Hepatitis A Antibody IgM Negative (Negative); Hepatitis B Core Antibody IgM Negative (Negative); Hepatitis C Antibody <0.1 s/co ratio (0.0-0.9)
[2021-03-05] MEDS: POTASSIUM CHLORIDE IN WATER 10 MEQ/100 ML PIGGYBACK 100 MEQ IV ×7 (09:19→23:41)
[2021-03-05] MEDS: HEPARIN 5,000 UNIT/ML VIAL 5000 UNIT SUBCUT ×2 (09:22→22:09)
[2021-03-05] MEDS: ACETAMINOPHEN 325 MG TABLET 650 MG PO (10:26)
[2021-03-05] MEDS: ACETAMINOPHEN 650 MG SUPP PR ×2 (10:37→23:40)
[2021-03-05] MEDS: cefTRIAXone 2,000 MG in SODIUM CHLORIDE 0.9% 100 ML 200 ML IV (14:28)
[2021-03-05] MEDS: TOBRAMYCIN 0.3% 2 DROPS EYE-RIGHT ×3 (15:31→22:09)
[2021-03-05 16:17] LABS: Vancomycin Peak 26.2 ug/mL (20-40)
--- NOTE | 2021-03-05 16:18 | P.PN_ITS ---
Subjective Subjective Date Patient Seen: 03/05/21 Interval history: Patient is a 60-year-old female admitted to the hospital with pneumococcal meningitis, she has been started on ceftriaxone and vancomycin. Patient continues to be lethargic and poorly responsive, she was somewhat more re sponsive earlier today. She remains febrile. She is noted to have drainage out of the right eye. Repeat blood cultures from yesterday are still positive she has 4+ Gram-positive cocci in the blood from yesterday. Urine culture positive for Klebsiella oxytocin. Exam Vital Signs (past 8 hours): - 03/05/21 10:00 03/05/21 14:08 03/05/21 14:28 Temperature 98.8 F 100.1 F H 99.7 F H Pulse Rate 89 Respiratory Rate 15 Blood Pressure 116/67 Pulse Oximetry 94 Oxygen Delivery Method Room Air Oxygen Flow Rate 0 Narrative Exam Narrative: Ill-appearing female poorly responsive but arousable Eyes Other: Right eye swollen with conjunctival ejection, and sanguinous drainage Resp Other: Decreased breath sounds bilaterally but clear Cardio Other: Cardiac exam: Regular rate and rhythm normal S1-S2 GI Other: Abdomen soft nontender nondistended Other: Siddiqi catheter in place Extrem Other: No edema Objective Labs Result Diagrams: 03/05/21 06:12 03/05/21 06:12 Labs: Laboratory Results - last 24 hr 03/04/21 03/05/21 03/05/21 06:46 06:12 06:12 WBC 9.7 RBC 4.21 Hgb 11.9 L Hct 35.3 L MCV 83.9 MCH 28.2 MCHC 33.6 RDW 17.1 H Plt Count 95 L Neut % (Auto) Not Reportable Lymph % (Auto) Not Reportable [place] % (Auto) Not Reportable Eos % (Auto) Not Reportable Baso % (Auto) Not Reportable Lymph # (Auto) Not Reportable [place] # (Auto) Not Reportable Baso # (Auto) Not Reportable Total Counted 100 Seg Neutrophils % 31.0 L Band Neutrophils % 28.0 H Lymphocytes % (Manual) 26.0 Monocytes % (Manual) 5.0 Metamyelocytes % 9.0 H Myelocytes % 1.0 H Neutrophils # (Manual) 5723 Platelet Estimate RBC Morphology See below Anisocytosis 1+ H Target Cells 1+ H Sodium Potassium Chloride Carbon Dioxide BUN Creatinine Estimated GFR BUN/Creatinine Ratio Glucose Calcium Magnesium 2.4 H Total Bilirubin Conjugated Bilirubin Unconjugated Bilirubin AST ALT Alkaline Phosphatase Total Protein Albumin Globulin Albumin/Globulin Ratio Vancomycin Peak Vancomycin Trough Hepatitis A IgM Ab Negative Hep Bs Antigen Negative Hep B Core IgM Ab Negative Hepatitis C Antibody <0.1 Hep C Ab Signal/Cutoff Comment 03/05/21 03/05/21 03/05/21 06:12 06:12 12:40 WBC RBC Hgb Hct MCV MCH MCHC RDW Plt Count Neut % (Auto) Lymph % (Auto) [place] % (Auto) Eos % (Auto) Baso % (Auto) Lymph # (Auto) [place] # (Auto) Baso # (Auto) Total Counted Seg Neutrophils % Band Neutrophils % Lymphocytes % (Manual) Monocytes % (Manual) Metamyelocytes % Myelocytes % Neutrophils # (Manual) Platelet Estimate RBC Morphology Anisocytosis Target Cells Sodium 139 Potassium 2.7 L* Chloride 104 Carbon Dioxide 30 BUN 14 Creatinine 0.66 Estimated GFR > 60.0 BUN/Creatinine Ratio 21.2 Glucose 164 H Calcium 8.3 L Magnesium Total Bilirubin 0.7 Conjugated Bilirubin 0.0 Unconjugated Bilirubin 0.6 AST 46 H ALT 28 Alkaline Phosphatase 53 Total Protein 5.8 L Albumin 3.0 L Globulin 2.8 Albumin/Globulin Ratio 1.1 Vancomycin Peak Vancomycin Trough 9.0 L Hepatitis A IgM Ab Hep Bs Antigen Hep B Core IgM Ab Hepatitis C Antibody Hep C Ab Signal/Cutoff 03/05/21 15:43 WBC RBC Hgb Hct MCV MCH MCHC RDW Plt Count Neut % (Auto) Lymph % (Auto) [place] % (Auto) Eos % (Auto) Baso % (Auto) Lymph # (Auto) [place] # (Auto) Baso # (Auto) Total Counted Seg Neutrophils % Band Neutrophils % Lymphocytes % (Manual) Monocytes % (Manual) Metamyelocytes % Myelocytes % Neutrophils # (Manual) Platelet Estimate RBC Morphology Anisocytosis Target Cells Sodium Potassium Chloride Carbon Dioxide BUN Creatinine Estimated GFR BUN/Creatinine Ratio Glucose Calcium Magnesium Total Bilirubin Conjugated Bilirubin Unconjugated Bilirubin AST ALT Alkaline Phosphatase Total Protein Albumin Globulin Albumin/Globulin Ratio Vancomycin Peak 26.2 Vancomycin Trough Hepatitis A IgM Ab Hep Bs Antigen Hep B Core IgM Ab Hepatitis C Antibody Hep C Ab Signal/Cutoff [facility] Medical History Mantle cell lymphoma Social History household members: spouse Smoking Status: Never smoker Assessment & Plan Assessment & Plan narrative: 1.Severe sepsis -manifested by acute renal failure, creatinine 1.37, now improved -acute metabolic encephalopathy --white count 16.6, initial lactate 3.4, left shift, procalcitonin markedly elevated at 51.4 -white count 9.7 today -no evidence of hypotension at this time, still febrile -lumbar puncture completed, awaiting CSF results -continue IV ceftriaxone and vancomycin -blood cultures positive for strep pneumonia, making? 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 Probable urinary tract infection -urine culture growing Gram-negative bacilli -awaiting final culture and sensitivity, continue IV ceftriaxone -urine culture growing Klebsiella oxytocin, sensitive to ceftriaxone 3. Acute kidney injury -likely related to underlying severe infection -continue IV hydration -will avoid nephrotoxic agent -will follow closely -renal function improved 4. Elevated lipase, abnormal CT -doubt pancreatitis, but will follow closely 5. Hypokalemia -resolved 6. Patient is minimally responsive, will continue IV hydration, consider alternative nutrition if she is unable to eat by tomorrow 7. Right eye conjunctivitis -tobramycin eyedrops started today Time Spent With Patient Critical Care time: I spent a total of [] minutes of critical care time on this patient's care today; this time is exclusive of procedural time. Quality VTE Deep Vein Thrombosis/Pulmonary Embolism Present on Admission: No
[2021-03-05] MEDS: KCL 20 MEQ IN NS 1,000 ML 100 MEQ IV (17:22)
[2021-03-05 18:34] LABS: HEMOLYSIS < 15 (0-50); Potassium 2.9 mmol/L (3.4-5.1)
[2021-03-05 20:00] LABS: Calcium 8.2 mg/dL (8.4-10.2); Phosphorous 1.6 mg/dL (2.8-4.1)
[2021-03-05] MEDS: MAGNESIUM SULFATE 2 GM/50 ML PIGGYBACK IV (23:48)
[2021-03-06] VITALS (8 sets, daily range): BP systolic 110–134; BP diastolic 59–73; PULSE 70–87; RESP 15–20; TEMP 36.6–37.8; O2SAT 96–98
[2021-03-06] MEDS: POTASSIUM CHLORIDE IN WATER 10 MEQ/100 ML PIGGYBACK 100 MEQ IV ×4 (01:00→06:04)
[2021-03-06] MEDS: VANCOMYCIN 1,000 MG/200 ML PIGGYBACK 200 MG IV ×2 (01:42→14:15)
[2021-03-06] MEDS: POTASSIUM PHOSPHATE 9 MMOL in SODIUM CHLORIDE 0.9% 250 ML 63.25 ML IV (02:11)
[2021-03-06] MEDS: cefTRIAXone 2,000 MG in SODIUM CHLORIDE 0.9% 100 ML 200 ML IV ×2 (03:22→15:52)
[2021-03-06] MEDS: TOBRAMYCIN 0.3% 2 DROPS EYE-RIGHT ×5 (05:15→22:32)
[2021-03-06 09:09] LABS: Add Manual Diff / Slide Review NO; Basophils Absolute Auto 100 /uL (0-100); Basophils Percent Auto 0.9 % (0-2); Eosinophils Absolute Auto 0 /uL (0-450); Hematocrit 36.3 % (36-46); Hemoglobin 12.2 g/dL (12.0-16.0); Lymphocytes Absolute Auto 1900 /uL (1100-4500); Lymphocytes Percent Auto 23.3 % (25-40); Mean Corpuscular HGB Conc 33.6 % (30-36); Mean Corpuscular Hemoglobin 28.2 PG (26-34); Mean Corpuscular Volume 83.9 fL (80-100); Monocytes Absolute Auto 900 /uL (0-900); Monocytes Percent Auto 10.8 % (3-14); Neutrophils Absolute Auto 5200 /uL (1500-7000); Platelet Count 78 X10^3/uL (150-400); Red Blood Cell Count 4.33 X10^6/uL (4.0-5.2); Red Cell Distribution Width 17.1 % (11.6-14.8); White Blood Cell Count 8.1 X10^3/uL (4.5-11.0)
[2021-03-06 09:20] LABS: Alanine Aminotransferase 27 IU/L (<35); Albumin 3.2 g/dL (3.5-5.0); Albumin Globulin Ratio 1.1 (1.0-2.8); Alkaline Phosphatase 68 U/L (38-126); Aspartate Aminotransferase 40 IU/L (14-36); Bilirubin Total 0.6 mg/dL (0.2-1.3); Blood Urea Nitrogen 14 mg/dL (7-17); Calcium 8.2 mg/dL (8.4-10.2); Carbon Dioxide 27 mmol/L (22-32); Chloride 106 mmol/L (98-107); Estimated Glomerular Filt Rate > 60.0 mL/min (>60); Globulin 2.8 g/dL (1.7-4.1); Glucose 97 mg/dL (80-110); HEMOLYSIS < 15 (0-50); Potassium 3.1 mmol/L (3.4-5.1); Sodium 140 mmol/L (137-145)
[2021-03-06] MEDS: HEPARIN 5,000 UNIT/ML VIAL 5000 UNIT SUBCUT ×2 (09:35→20:29)
[2021-03-06] MEDS: KCL 20 MEQ IN NS 1,000 ML 100 MEQ IV ×2 (09:35→22:29)
--- NOTE | 2021-03-06 11:10 | DI.MRI.S_ITS ---
PROCEDURE: MR HEAD/BRAIN WO/W CON INDICATIONS: Meningitis TECHNIQUE: Noncontrast axial T1 spin echo, axial T2 fast spin echo, sagittal and axial FLAIR, coronal T2 fast spin echo, axial gradient echo, axial diffusion and ADC through the brain. After the administration of contrast, axial and coronal 3D VIBE or T1 spin echo with fat saturation through the brain. COMPARISON: [facility], CT, CT HEAD/BRAIN WO CON, 03/03/2021, 18:12. FINDINGS: Image quality: There is mild motion artifact. CSF Spaces: Basal cisterns are patent. No extra-axial fluid collections. Ventricles are normal in size and shape. Brain: No intracranial hemorrhage, mass, or mass effect. No definite abnormal intracranial enhancement. No intracranial abscess collections. A small focus T2 hyperintensity in the right external capsule demonstrates probable mild restricted diffusion suggestive of a small subacute lacunar infarct. The brainstem appears normal. There are few subcortical and periventricular foci of white matter T2 hyperintensity which are nonspecific but likely represent mild chronic small vessel ischemic changes. Normal intravascular flow voids are present. Skull and face: Calvarial marrow is normal in signal. Orbits appear normal. Sinuses: Sinuses and mastoids appear clear. IMPRESSION: 1. No definite abnormal intracranial enhancement or abscess collections. 2. Small focus of mildly restricted diffusion in the right external capsule suggestive of a small subacute lacunar infarct. 3. Scattered foci of subcortical and periventricular white matter T2 hyperintensity are nonspecific but likely represent mild chronic small vessel ischemic changes. Dictated by: Alvino Coombs M.D. on 03/06/2021 at 13:23 Approved by: Alvino Coombs M.D. on 03/06/2021 at 13:29
--- NOTE | 2021-03-06 14:27 | CM.DPC ---
DCP Cont: Discussed patient during team rounds. Patient has pneumococcal mengitis as well, and is anticipated, patient will be here for a while. Hospitalist mentioned the possibility of patient needing IV antibiotics for a couple of weeks. Patient does have [place]. She currently has no P.T. orders, as she is not yet medically stable for this. Both patient and spouse are from [place], and according to DCP notes, patient is independent at her baseline. P: DCP will follow patient closely for needs. Alicia Seth RN/Swabber
--- NOTE | 2021-03-06 14:44 | P.PN_ITS ---
Subjective Subjective Interval history: The patient's responsive this morning, and understands questioning, but answers are monosyllabic. Per patient's RN, pt was able to swallow and keep breakfast down. Exam Vital Signs (past 8 hours): - 03/07/21 07:37 03/07/21 11:00 Temperature 98.2 F 99.0 F Pulse Rate 76 75 Respiratory Rate 15 18 Blood Pressure 139/73 124/74 Pulse Oximetry 97 99 Oxygen Delivery Method Room Air Oxygen Flow Rate 0 Narrative Exam Narrative: Patient sitting up in bed upon my entering the room, in no apparent acute distress Eyes Other: Right eye with slight swelling, and improved conjunctival irritation? Resp Other: Decreased breath sounds bilaterally and without adventitious breath sounds Cardio Other: Cardiac exam: Regular rate and rhythm normal S1-S2 GI Other: Abdomen soft, non-tender, non-distended Other: Siddiqi catheter in place Extrem Other: No edema Objective Labs Result Diagrams: 03/07/21 08:55 03/07/21 08:55 Labs: Laboratory Results - last 24 hr 03/07/21 03/07/21 08:55 08:55 WBC 7.6 RBC 4.13 Hgb 11.6 L Hct 34.3 L MCV 83.1 MCH 27.9 MCHC 33.6 RDW 16.3 H Plt Count 87 L Neut % (Auto) 54.8 Lymph % (Auto) 25.9 [place] % (Auto) 18.5 H Eos % (Auto) 0.0 L Baso % (Auto) 0.8 Neut # (Auto) 4100 Lymph # (Auto) 2000 [place] # (Auto) 1400 H Eos # (Auto) 0 Baso # (Auto) 100 Sodium 140 Potassium 2.4 L* Chloride 104 Carbon Dioxide 30 BUN 13 Creatinine 0.55 Estimated GFR > 60.0 BUN/Creatinine Ratio 23.6 H Glucose 106 Calcium 8.3 L Phosphorus 2.5 L Magnesium 1.9 [facility] Medical History Mantle cell lymphoma Social History household members: spouse Smoking Status: Never smoker Assessment & Plan Assessment & Plan narrative: 1.Severe sepsis, likely secondary to pneumococcal meningitis -manifested by acute renal failure, creatinine 1.37, now improved -white count 16.6, initial lactate 3.4, left shift, procalcitonin markedly elevated at 51.4, with improvement of said parameters -CSF growing no bacteria, but this was collected after patient received lumbar puncture -continue IV ceftriaxone and vancomycin -blood cultures positive for strep pneumonia, making? 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 Probable urinary tract infection -urine culture growing Klebsiella oxytocin, sensitive to ceftriaxone, and will continue 4. Acute kidney injury -likely related to underlying severe infection -continue IV hydration -will avoid nephrotoxic agent -renal function improving 5. Elevated lipase, abnormal CT -doubt pancreatitis, but will follow closely 6. Hypokalemia -replenishment as needed 7. Right eye conjunctivitis -tobramycin eyedrops started today VTE prophylaxis:?Heparin 5000 units tid Time Spent With Patient Critical Care time: I spent a total of [] minutes of critical care time on this patient's care today; this time is exclusive of procedural time. Quality VTE Deep Vein Thrombosis/Pulmonary Embolism Present on Admission: No
[2021-03-06] MEDS: ACETAMINOPHEN 325 MG TABLET 650 MG PO (20:29)
[2021-03-07] MEDS: VANCOMYCIN 1,000 MG/200 ML PIGGYBACK 200 MG IV ×2 (00:30→13:01)
[2021-03-07] MEDS: TOBRAMYCIN 0.3% 2 DROPS EYE-RIGHT ×6 (03:07→21:52)
[2021-03-07] MEDS: cefTRIAXone 2,000 MG in SODIUM CHLORIDE 0.9% 100 ML 200 ML IV ×2 (03:07→15:02)
[2021-03-07 04:42] VITALS: BP 136/72; PULSE 79; RESP 16; TEMP 37.3; O2SAT 95
[2021-03-07 05:49] VITALS: TEMP 37.2
--- NOTE | 2021-03-07 06:08 | PC.NURSE ---
Pt more awake tonight, requesting water multiple times. She also had apple sauce and vanilla putting. Denied pain but moaned with bed turns (which were done every 2 hours). Pt had 2 loose bm tonight. Pt's bottom is red (barrier cream applied). will continue to monitor.
[2021-03-07 07:37] VITALS: BP 139/73; PULSE 76; RESP 15; TEMP 36.8; O2SAT 97
[2021-03-07 09:13] LABS: Add Manual Diff / Slide Review NO; Basophils Absolute Auto 100 /uL (0-100); Basophils Percent Auto 0.8 % (0-2); Eosinophils Absolute Auto 0 /uL (0-450); Hematocrit 34.3 % (36-46); Hemoglobin 11.6 g/dL (12.0-16.0); Lymphocytes Absolute Auto 2000 /uL (1100-4500); Lymphocytes Percent Auto 25.9 % (25-40); Mean Corpuscular HGB Conc 33.6 % (30-36); Mean Corpuscular Hemoglobin 27.9 PG (26-34); Mean Corpuscular Volume 83.1 fL (80-100); Monocytes Absolute Auto 1400 /uL (0-900); Monocytes Percent Auto 18.5 % (3-14); Neutrophils Absolute Auto 4100 /uL (1500-7000); Neutrophils Percent Auto 54.8 % (50-75); Platelet Count 87 X10^3/uL (150-400); Red Blood Cell Count 4.13 X10^6/uL (4.0-5.2); Red Cell Distribution Width 16.3 % (11.6-14.8); White Blood Cell Count 7.6 X10^3/uL (4.5-11.0)
[2021-03-07 09:21] LABS: BUN Creatinine Ratio 23.6 (6-22); Blood Urea Nitrogen 13 mg/dL (7-17); Calcium 8.3 mg/dL (8.4-10.2); Carbon Dioxide 30 mmol/L (22-32); Chloride 104 mmol/L (98-107); Estimated Glomerular Filt Rate > 60.0 mL/min (>60); Glucose 106 mg/dL (80-110); HEMOLYSIS < 15 (0-50); Magnesium 1.9 mg/dL (1.6-2.3); Phosphorous 2.5 mg/dL (2.8-4.1); Sodium 140 mmol/L (137-145)
[2021-03-07 09:53] LABS: Potassium 2.4 mmol/L (3.4-5.1)
[2021-03-07] MEDS: HEPARIN 5,000 UNIT/ML VIAL 5000 UNIT SUBCUT ×2 (10:12→21:29)
[2021-03-07 11:00] VITALS: BP 124/74; PULSE 75; RESP 18; TEMP 37.2; O2SAT 99
--- NOTE | 2021-03-07 11:15 | CM.DPC ---
Addendum entered by Alicia Seth R.N. 03/07/21 12:24: Met with patient and , Pardeep. Patient was laying in bed, flat appearance, did not engage in conversation. Confirmed that patient and spouse reside in the [facility], which is [facility]. Was also able to get further information regarding patient's primary care provider. Primary care provider is Dr. Dougherty at [facility]. She also has an oncologist as well. Called Robson at [facility] and gave him update. Alicia Seth RN/Computer Forensics Examiner Original Note: DCP Cont: Discussed patient during team rounds. Hospitalist indicated, patient is improving, but to plan on patient needing 14 days of IV antibiotics. Hospitalist indicated that patient will be on Ceftriaxone daily. This can be given via her port. Attempted to get in touch with patient's , for patient is sleeping, but phone number not in service. Wanted to find out who patient's primary care provider is, so she can have a provider follow. Called [facility], and spoke to pharmacist television script writer, Robson. He gave his cell phone number to call him back. It is [phone]. Asked him if [facility] services the [facility], and he indicated, they do, but depends upon the address. Went ahead and faxed him over the referral, included face sheet, all labs, med sheets, H&P. Robson did call back and stated that he checked the address, and wants to verify that it is in the [facility] area, which is [facility], and they service that area. Let him know that this case therapist will reach out to spouse today, for he visits daily and ask him about his address, as well as who her primary care provider is. Will call Robson back with an update. Robson is not concerned about medication being covered, since she has [place]. P: DCP to continue to follow, and will work on home infusions for patient. Will discuss with spouse at bedside today. Hospitalist is anticipating discharge possibly Monday, if she is stable. Alicia Seth RN/Computer Forensics Examiner
[2021-03-07] MEDS: POTASSIUM CHLORIDE IN WATER 10 MEQ/100 ML PIGGYBACK 100 MEQ IV ×8 (12:41→20:28)
[2021-03-07] MEDS: KCL 20 MEQ IN NS 1,000 ML 100 MEQ IV (13:00)
--- NOTE | 2021-03-07 14:48 | DI.ECHO.S_ITS ---
[facility]---------+ [facility] +---------+ : : [id number] : : : : [id number] : : : : Phone: [phone]+ Echocardiogram Report + + :Name: ALFREDO LOZANO Study Date: 03/08/2021 Height: 66 in : :[facility] ReadingLocation: Weight: 150 lb : : Gender: Female BSA: 1.8 m2 : :: 1960 Age: 60 yrs BP: 125/69 mmHg: :Reason For Study: ENDOCARDITIS : :Ordering Physician: ALFREDITO MCGRATH : : Performed By: Tanya Nichole : :Referring: ALFREDITO MCGRATH MD : + + Interpretation Summary The study quality was technically difficult. The ejection fraction is estimated to be 55-60%. Diastolic parameters suggest probable normal left ventricular diastolic function and normal filling pressures. The right ventricle is at the upper limits of normal in size. The right ventricular systolic function is normal. The right atrium is mildly dilated. There is mild mitral regurgitation. There is moderate tricuspid regurgitation. PASP is approximately 40 to 45 mmHg. Procedure: A two-dimensional transthoracic echocardiogram with color flow and Doppler was performed. The study quality was technically difficult. There is no prior echocardiogram noted for this patient. The patient was in sinus rhythm with heart rates between 71-87 bpm during the exam. Left Ventricle: The left ventricle is normal in size and wall thickness. The ejection fraction is estimated to be 55-60%. Diastolic parameters suggest probable normal left ventricular diastolic function and normal filling pressures. Right Ventricle: The right ventricle is at the upper limits of normal in size. The right ventricular systolic function is normal. Atria: The left atrial size is normal. The right atrium is mildly dilated. There is no Doppler evidence for an interatrial shunt. Mitral Valve: The mitral valve is normal in structure and function. There is mild mitral regurgitation. Aortic Valve: The aortic valve is trileaflet. The aortic valve opens well. There is no aortic valve stenosis. No aortic regurgitation is present. Tricuspid Valve: The tricuspid valve is not well visualized. There is moderate tricuspid regurgitation. PASP is approximately 40 to 45 mmHg. Pulmonic Valve: The pulmonic valve is not well visualized. There is no pulmonic valvular regurgitation. Great Vessels: The aortic root is normal size. The dimensions of the ascending aorta are normal. The IVC is of normal diameter and collapses less than 50% with a sniff. This suggests a right atrial pressure of 8 mm Hg. Pericardium/ Pleura There is no pericardial effusion. There is no pleural effusion. MMode/2D Measurements & Calculations LVIDd: 5.2 cm LVOT diam: 2.0 cm LVIDs: 3.8 cm Ao root diam: 2.7 cm FS: 26.8 % asc Aorta Diam: 2.9 cm IVSd: 0.86 cm Ao Arch Diam (Prox Trans): 2.5 cm LVPWd: 0.86 cm LV soto. diameter/BSA (cm/m^2): 3.0 LV sys. diameter/BSA (cm/m^2): 2.2 LA A2 area: 21.3 cm2 RA long axis: 5.6 cm LA A4 area: 16.6 cm2 RA area: 20.5 cm2 LA length (vol): 5.7 cm RA vol: 64.0 ml LA vol: 52.7 ml RA : 36.2 ml/m2 LA vol index: 29.7 ml/m2 IVC diam: 1.4 cm RVD1 (basal): 4.0 cm TAPSE: 2.3 cm Doppler Measurements & Calculations Ao V2 max: 153.0 cm/sec LVOT Max Jacob: 76.6 cm/sec Ao V2 mean: 120.0 cm/sec LV V1 max P.3 mmHg Ao max P.4 mmHg LV V1 VTI: 15.8 cm Ao mean P.1 mmHg APRIL(I,D): 1.5 cm2 Ao V2 VTI: 32.4 cm APRIL(V,D): 1.5 cm2 sev ratio: 0.49 APRIL indexed to BSA (cm^2/m^2): 0.85 MV E max jacob: 79.7 cm/sec TR max jacob: 282.8 cm/sec MV A max jacob: 85.9 cm/sec TR max P.0 mmHg MV E/A: 0.93 PA V2 max: 82.8 cm/sec Med Peak E' Jacob: 8.9 cm/sec PA V2 mean: 62.0 cm/sec E/E' med: 9.0 PA mean P.7 mmHg Lat Peak E' Jacob: 10.0 cm/sec PA pr(Accel): 29.3 mmHg E/E' lat: 8.0 E/e' average: 8.5 MV dec time: 0.15 sec SVLVOT): 48.5 ml Reading Physician:09:40 AM
--- NOTE | 2021-03-07 14:55 | P.PN_ITS ---
Subjective Subjective Interval history: Patient is more interactive this morning, and is able to answer questions more fully. She's also able to open her eyes more after receiving tobramycin eye drops. She denies KOTHARI, photophobia, swallowing difficulties, CP, SOB, cough, n/v/d, abd pain. Exam Vital Signs (past 8 hours): - 03/07/21 07:37 03/07/21 11:00 Temperature 98.2 F 99.0 F Pulse Rate 76 75 Respiratory Rate 15 18 Blood Pressure 139/73 124/74 Pulse Oximetry 97 99 Oxygen Delivery Method Room Air Oxygen Flow Rate 0 Narrative Exam Narrative: Patient sitting up in bed upon my entering the room, in no apparent acute distress Eyes Other: Right eye with slight swelling, and improved conjunctival irritation? Resp Other: Decreased breath sounds bilaterally and without adventitious breath sounds Cardio Other: Cardiac exam: Regular rate and rhythm, normal S1-S2 with no extra heart sounds or murmurs appreciated GI Other: Abdomen soft, non-tender, non-distended, with bowel sounds present Other: Siddiqi catheter in place Neuro CN II-XII intact Extrem Other: No edema Objective Labs Result Diagrams: 03/07/21 08:55 03/07/21 08:55 Labs: Laboratory Results - last 24 hr 03/07/21 03/07/21 08:55 08:55 WBC 7.6 RBC 4.13 Hgb 11.6 L Hct 34.3 L MCV 83.1 MCH 27.9 MCHC 33.6 RDW 16.3 H Plt Count 87 L Neut % (Auto) 54.8 Lymph % (Auto) 25.9 [place] % (Auto) 18.5 H Eos % (Auto) 0.0 L Baso % (Auto) 0.8 Neut # (Auto) 4100 Lymph # (Auto) 2000 [place] # (Auto) 1400 H Eos # (Auto) 0 Baso # (Auto) 100 Sodium 140 Potassium 2.4 L* Chloride 104 Carbon Dioxide 30 BUN 13 Creatinine 0.55 Estimated GFR > 60.0 BUN/Creatinine Ratio 23.6 H Glucose 106 Calcium 8.3 L Phosphorus 2.5 L Magnesium 1.9 PFSH Medical History Mantle cell lymphoma Social History household members: spouse Smoking Status: Never smoker Assessment & Plan Assessment & Plan narrative: 1.Severe sepsis, 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 Probable urinary tract infection -urine culture growing Klebsiella oxytocin, sensitive to ceftriaxone, and will continue 4. Acute kidney injury -likely related to underlying severe infection -continue IV hydration -will avoid nephrotoxic agent -renal function improving 5. Elevated lipase, abnormal CT -doubt pancreatitis, but will follow closely 6. Hypokalemia -replenishment as needed 7. Right eye conjunctivitis -tobramycin eyedrops started today VTE prophylaxis:?Heparin 5000 units tid Time Spent With Patient Critical Care time: I spent a total of [] minutes of critical care time on this patient's care today; this time is exclusive of procedural time. Quality VTE Deep Vein Thrombosis/Pulmonary Embolism Present on Admission: No
[2021-03-07 15:16] VITALS: BP 125/69; PULSE 77; RESP 18; TEMP 37.2; O2SAT 96
--- NOTE | 2021-03-07 15:27 | PC.NURSE ---
Dr Young notified CSF positive for streptococcus pneumonae. Critical K of 2.4 this morning. Pt receiving K riders 80 meQ. Will recheck K level at 1800. Pt unable to swallow potassium by mouth. Following prompts to drink/swallow but was still unable to swallow pill.
[2021-03-07] MEDS: POTASSIUM CHLORIDE 20 MEQ/15 ML UDC 40 MEQ PO (16:01)
[2021-03-07 18:18] LABS: HEMOLYSIS < 15 (0-50); Potassium 3.6 mmol/L (3.4-5.1)
[2021-03-07 20:00] VITALS: BP 111/64; PULSE 88; RESP 18; TEMP 36.9; O2SAT 98
--- NOTE | 2021-03-07 22:09 | PC.NURSE ---
Patient awake and able to state her name, birthdate, age and knows she is in the hospital. Able to carry on a brief conversation although there are times she is delayed with her responses or simply looks at staff and doesn't respond at all. Breath sounds are CTA but has shallow respirations; RA sat 98%; on continuous oximetry as per MD order. HRR with telemetry reading of SR. Denies nausea. BT present and abdomen is soft. Was incontinent of yelllow/green loose stool. Rectal/buttock area is reddened and barrier cream applied after cleansing. Indwelling catheter is patent; urine is clear yellow. Unable to turn herself due to weakness so is being repositioned q2h. Was able to move feet and lift arms when directed to do so but is generally weak. Denied pain but when turned did call out and said neck hurt in response to questioning but was unable to quantify severity with a number; FLACC was 2. Wearing bilateral calf SCD's. Fall risk score is high and bed alarm is activated.
[2021-03-08] VITALS: BP 119/62; PULSE 86; RESP 18; TEMP 37.5; O2SAT 97
[2021-03-08] MEDS: VANCOMYCIN 1,000 MG/200 ML PIGGYBACK 200 MG IV ×2 (00:41→14:13)
[2021-03-08] MEDS: TOBRAMYCIN 0.3% 2 DROPS EYE-RIGHT ×6 (02:13→22:35)
[2021-03-08] MEDS: SODIUM CHLORIDE 0.9% FLUSH 10 ML IV ×3 (02:16→21:26)
[2021-03-08] MEDS: cefTRIAXone 2,000 MG in SODIUM CHLORIDE 0.9% 100 ML 200 ML IV ×2 (03:08→16:31)
[2021-03-08 04:00] VITALS: BP 127/72; PULSE 81; RESP 18; TEMP 37.2; O2SAT 99
[2021-03-08 06:17] LABS: Mean Corpuscular HGB Conc 33.5 % (30-36); Mean Corpuscular Hemoglobin 28.1 PG (26-34); Mean Corpuscular Volume 83.8 fL (80-100); Platelet Count 100 X10^3/uL (150-400); Red Blood Cell Count 3.93 X10^6/uL (4.0-5.2); Red Cell Distribution Width 16.6 % (11.6-14.8)
[2021-03-08 06:25] LABS: BUN Creatinine Ratio 22.6 (6-22); Blood Urea Nitrogen 12 mg/dL (7-17); Calcium 8.5 mg/dL (8.4-10.2); Carbon Dioxide 30 mmol/L (22-32); Chloride 105 mmol/L (98-107); Estimated Glomerular Filt Rate > 60.0 mL/min (>60); Glucose 102 mg/dL (80-110); HEMOLYSIS < 15 (0-50); Magnesium 1.7 mg/dL (1.6-2.3); Phosphorous 2.7 mg/dL (2.8-4.1); Potassium 2.8 mmol/L (3.4-5.1); Sodium 140 mmol/L (137-145)
[2021-03-08] MEDS: POTASSIUM CHLORIDE 20 MEQ/15 ML UDC 40 MEQ PO (06:48)
[2021-03-08] MEDS: ACETAMINOPHEN 325 MG TABLET 650 MG PO ×2 (06:55→18:03)
[2021-03-08 08:00] VITALS: BP 109/64; PULSE 86; RESP 16; TEMP 36.9; O2SAT 93
[2021-03-08] MEDS: HEPARIN 5,000 UNIT/ML VIAL 5000 UNIT SUBCUT ×2 (08:50→21:26)
[2021-03-08] MEDS: KCL 20 MEQ IN NS 1,000 ML 100 MEQ IV (09:04)
[2021-03-08] MEDS: POTASSIUM CHLORIDE 20 MEQ TAB 80 MEQ PO (09:05)
[2021-03-08] MEDS: POTASSIUM CHLORIDE IN WATER 10 MEQ/100 ML PIGGYBACK 100 MEQ IV ×8 (09:16→17:57)
--- NOTE | 2021-03-08 11:16 | PT.IIE ---
Current Diagnoses Sepsis, unspecified organism (03/03/21) Medical History (Last Reviewed 03/04/21 @ 00:44 by WILLIAM Ricardo) Mantle cell lymphoma Physical Therapy Inpatient Evaluation/Re-Eval M1 PT/OT-IP Prior Functional Status Start: 03/08/21 10:20 Freq: NEEDED Status: Active Protocol: Document 03/08/21 11:16 AW (Rec: 03/08/21 11:45 AW [id number]) Medical Review Prior Functional Status Medical History Reviewed Yes Communication Pt is typically an effective verbal communicator. On evaluation, pt was able to make her needs known but with flat affect. She required extra time for processing and was unable to answer all questions. Mobility and Gait Pt is independent with all mobility at baseline and has not used any assistive device. Pt's spouse states they frequently go for long walks and pt has no meaningful limit to her mobility. Activities of Daily Living and IADL's Independent. Social History Household Members spouse Living Arrangements House Number of Floors (Floors) Two Floors Number of Stairs To Enter/Railing? 10 BIB at front door - 4 steps with no rail + 6 steps with wide bilateral rails. Alternatively, pt can enter through the garage and then climb 10 steps with R rail and L-side wall to the main level . 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 She lives in [facility] with her spouse, Pardeep. Spouse states he may have a 4WW at home but is not certain . Pt and her spouse were visiting their cabin in the [facility] last weekend when pt became feverish and came to [facility]. M2 PT-IP Current Condition Start: 03/08/21 10:20 Freq: NEEDED Status: Active Protocol: Document 03/08/21 11:16 AW (Rec: 03/08/21 11:45 AW [id number]) Physical Therapy Current Condition Current Condition Evaluation Date 03/08/21 Treatment Diagnosis sepsis, meningitis, AMS, impaired mobility and gait Onset Date 03/03/21 M3 PT-IP Subjective Start: 03/08/21 10:20 Freq: NEEDED Status: Active Protocol: Document 03/08/21 11:16 AW (Rec: 03/08/21 11:45 AW [id number]) Subjective Physical Therapy Visit Type Type Initial Evaluation Visit Start Time 10:55 Visit Stop Time 11:16 Total Visit Minutes 21 Notes Co-eval with OT. SPT Chio also provided mobility assist. Number of BLACK ASH WORKER Visits 0 Physical Therapy Visit Comments Patient Comments Pt is willing to work with therapy team Patient Goals Unable to verbalize Therapy Pain Assessment Pain When Pain Assessed During Mobility Pain Present Pain Present Pain Reported Location Neck Scale Used not quantified; pt sits w/ left rotation and c/o pain Pain Management Techniques Modification of Treatment,Re- positioning M4 PT-IP Mobility and Gait Start: 03/08/21 10:20 Freq: NEEDED Status: Active Protocol: Document 03/08/21 11:16 JG (Rec: 03/08/21 11:47 J [id number]) PT-Bed Mobility Assessment Rolling Type of Rolling Roll to Left Level of Assist Maximal Assistance,2 Person Assistance Supine to Sit Supine to Sit Maximum Assistance,2 Person Assistance Scooting Scooting to Edge of Bed Maximum Assistance Scooting Up and Down in Bed Maximum Assistance PT-Transfer Assessment Sit to and From Stand Sit to and from Stand Moderate Assistance,2 Person Assistance Equipment Transfer Assistive Device Gait Belt,Front Wheeled Walker Orthotic/Prosthetic Devices or Brace: No Transfers Transfer Destination Chair Transfer Technique Stand Step Pivot Transfer Ability Level of Assist Moderate Assistance,2 Person Assistance Comments Mobility Comments Pt was supine in bed w/HOB elevated upon arrival. Pt's head was rotated to L. Pt was able to respond to approx half the questions and her answers were short, mostly yes/no. Pt was able to actively PF/DF, but unable to actively move upon command otherwise. Pt was unable to hold positions for strength testing. Pt req max A w/2P for bed mob. Once at EOB , pt was able to maintain seated balance indep. Pt was not able to initial sit>stand, but w/mod assist to hip hinge , pt was able to move CGA into standing. Pt was able to follow command to sit and completed w/CGA. Pt was unable to follow commands to scoot backwards in chair. Pt was able to manage FWW while moving from bed to chair. Gait Assessment Gait Gait Assistance Required: Moderate Assistance,2 Person Assist Distance (Feet) 2 Able to Maintain Weight Bearing Status Yes During Gait Assistive Devices Assistive Device Gait Belt,Front Wheeled Walker Orthotic/Prosthetic Devices or Brace: No Gait Deviations General Gait Pattern Antalgic,Decreased Stride Length,Decreased Feet Clearance,Flexed Trunk,Step-to Gait Factors Limiting Gait Function Factors Limiting Gait Function Difficulty Following Directions,Incoordination,Poor Safety Awareness Comments Gait Comments See mobility comments PT-Balance Assessment Sitting Balance and Reactions Static Sitting Balance Ability Good Dynamic Sitting Balance Ability Good Standing Balance and Reactions Static Standing Balance Ability Good Dynamic Standing Balance Ability Good Device Used FWW Comments Other Balance Tests/Deviations/Treatment OT added mild perturbations in : sitting and pt was able to maintain seated balance moderately well. In standing, SPT attempted to guide through lateral weight shifts and pt resisted which exhibited good dynamic standing balance. Pt was able to follow commands from PT to attempt to lift one foot of ground in standing. Pt was able to lift R foot an inch off ground, L foot barely off ground. Pt maintained balance w/CGA during standing activities. M5 PT-IP Objective Assessments Start: 03/08/21 10:20 Freq: NEEDED Status: Active Protocol: Document 03/08/21 11:16 AW (Rec: 03/08/21 11:54 [id number]) Orientation Orientation/Cognition Level of Alertness Confusional State Orientation Name,Month Comments Pt answers most questions accurately but with short responses. She requires extra processing time and has flat affect. She follows single- step commands ~50% of the time . Gross Range of Motion Lower Extremity ROM Assessment Within Functional Limits Strength Comments Strength Comments Unable to formally assess strength due to pt's inability to follow commands consistently. Sensation Assessment Comments Sensation Comments Pt denies sensation disturbance on exam M6 PT-IP Treatment Start: 03/08/21 10:20 Freq: NEEDED Status: Active Protocol: Document 03/08/21 11:16 AW (Rec: 03/08/21 11:54 [id number]) Physical Therapy Treatment Education Education Provided Safety M7 PT-IP Assessment and Plan Start: 03/08/21 10:20 Freq: NEEDED Status: Active Protocol: Document 03/08/21 11:16 AW (Rec: 03/08/21 11:58 AW [id number]) PT Summary Assessment and Plan Potential Rehabilitation Potential Good Status of Condition at Evaluation Evolving Summary Impairments Strength,Balance,Cognition,Bed Mobility,Transfers,Gait, Activity Tolerance Assessment Summary Yamile is a 60 yo woman admitted with sepsis secondary to meningitis. She is typically independent in all regards and is employed full- time as a truck manager for a [employer] in [place]. On evaluation, pt required mod- max assist x 2 for bed mobility and transfers. Pt needed assist to initiate movements. PT recommends SNF rehab vs home with assist and home health depending on pt's progress during her hospital course. PT will continue to assess. Goals Bed Mobility Goal Standby Assistance Transfer Goal Standby Assistance,Front Wheeled Walker Gait Goal Standby Assistance,Front Wheel Walker Gait Distance 100 Other Goals - up/down 10 steps with unilateral rail CGA Days to Meet Goals 10 Frequency of Treatment Frequency Of Treatment Once a Day Treatment Plan Physical Therapy Treatment Plan Bed Mobility Training,Transfer Training,Gait Training, Therapeutic Exercise,Balance Retraining,Discharge Planning, Hot or Cold Pack,Neuromuscular Re-ed Other Recommendations and Next Treatment transfers, gait with chair Focus follow as able Recommendations To Nursing Amount of Assist Needed 2 Person Assist Discharge Recommendations PT Discharge Recommendations Home with 24/7 Assist Available,Home Health,Home vs SNF Equipment Needed for Home Before pt may need FWW Discharge Transportation Needs at Discharge Private Vehicle,Wheelchair/ Cabulance Treatment was provided by Alvino De Santiago, SPT and supervised by Rimma Arauz, PT. I personally reviewed this note and agree with its contents.
--- NOTE | 2021-03-08 11:27 | OT.IP.EVAL ---
Current Diagnoses Sepsis, unspecified organism (03/03/21) Past Medical History (Last Reviewed 03/04/21 @ 00:44 by WILLIAM Ricardo) Mantle cell lymphoma Occupational Therapy Inpatient Evaluation/Re-Eval M1 PT/OT-IP Prior Functional Status Start: 03/08/21 10:20 Freq: NEEDED Status: Active Protocol: Document 03/08/21 11:53 CGR (Rec: 03/08/21 12:05 CGR [id number]) Medical Review Prior Functional Status Medical History Reviewed Yes Communication Pt is typically an effective verbal communicator. On evaluation, pt was able to inconsistently respond but with flat affect. She required extra time for processing and was unable to answer all questions. Mobility and Gait Pt is independent with all mobility at baseline and has not used any assistive device. Pt's spouse states they frequently go for long walks and pt has no meaningful limit to her mobility. Activities of Daily Living and IADL's Independent. Social History Household Members spouse Living Arrangements House Number of Floors (Floors) Two Floors Number of Stairs To Enter/Railing? 10 BIB at front door - 4 steps with no rail + 6 steps with wide bilateral rails. Alternatively, pt can enter through the garage and then climb 10 steps with R rail and L-side wall to the main level . 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 She lives in [facility] with her spouse, Pardeep. Spouse states he may have a 4WW at home but is not certain . Pt and her spouse were visiting their cabin in the [facility] last weekend when pt became feverish and came to [facility]. M1 PT/OT-IP Prior Functional Status Start: 03/08/21 10:20 Freq: NEEDED Status: Active Protocol: Document 03/08/21 11:53 CGR (Rec: 03/08/21 12:05 CGR [id number]) Medical Review Prior Functional Status Medical History Reviewed Yes Communication Pt is typically an effective verbal communicator. On evaluation, pt was able to inconsistently respond but with flat affect. She required extra time for processing and was unable to answer all questions. Mobility and Gait Pt is independent with all mobility at baseline and has not used any assistive device. Pt's spouse states they frequently go for long walks and pt has no meaningful limit to her mobility. Activities of Daily Living and IADL's Independent. Social History Household Members spouse Living Arrangements House Number of Floors (Floors) Two Floors Number of Stairs To Enter/Railing? 10 BIB at front door - 4 steps with no rail + 6 steps with wide bilateral rails. Alternatively, pt can enter through the garage and then climb 10 steps with R rail and L-side wall to the main level . 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 She lives in [facility] with her spouse, Pardeep. Spouse states he may have a 4WW at home but is not certain . Pt and her spouse were visiting their cabin in the [facility] last weekend when pt became feverish and came to [facility]. M2 OT-IP Current Condition Start: 03/08/21 10:20 Freq: Status: Active Protocol: Document 03/08/21 11:53 CGR (Rec: 03/08/21 12:05 CGR [id number]) Occupational Therapy Current Condition Current Condition Evaluation Date 03/08/21 Treatment Diagnosis meningitis with metabolic encephalopathy Diagnosis Onset Date 03/03/21 M3 OT- IP Subjective and Pain Start: 03/08/21 10:20 Freq: Status: Active Protocol: Document 03/08/21 11:53 CGR (Rec: 03/08/21 12:05 CGR [id number]) OT- Subjective Occupational Therapy Visit Type Type Initial Evaluation Visit Start Time 10:55 Visit Stop Time 11:27 Total Visit Minutes 32 Notes Partial co-treat with P.T. OT Pain Assessment Location Neck Intensity 10 Scale Used Numeric (0 - 10) Pain Behaviors Guarding,Holding Area Management Techniques Distraction,Modification of Treatment,Re-positioning M4 OT- IP ADL's Start: 03/08/21 10:20 Freq: Status: Active Protocol: Document 03/08/21 11:53 CGR (Rec: 03/08/21 12:05 CGR [id number]) OT [id number] Comments OT Self-Feeding Comments pt was fed by nursing staff this am as seen by this feature writer . OT ADL-Grooming General Evaluation Grooming Ability Moderate Assistance Areas Needing Assistance Face Washing OT ADL-Oral Care General Eval Oral Care Ability Moderate Assistance Areas of Assistance Brushing Teeth,Retrieving/Set- Up of Items Comments Oral Care Comments Pt needed assist with getting tooth paste on brush and getting brush to mouth but then was able to perform OT ADL-Dressing General Eval Lower Body Dressing Ability Total Assistance Areas Needing Assistance Socks OT ADL-Toileting Comments OT Toileting Comments not performed OT ADL-Bathing Comments OT Bathing Comments not performed M5 OT- IP IADL's Start: 03/08/21 10:20 Freq: Status: Active Protocol: Document 03/08/21 11:53 CGR (Rec: 03/08/21 12:05 CGR [id number]) OT-Instrumental Activities of Daily Living Deficits IADL Deficits Identified Deficits Home Safety Awareness Awareness of Need for Assistance at Home Decreased Awareness Ability to Problem Solve Emergency Unable to Problem Solve Situations Medication Management Medication Management Caregiver Administers Money Management Money Management Caregiver Provides Assistance Meal Preparation Meal Preparation Caregiver Provides Assist Special Events Director Special Events Director Caregiver Provides Assist Driving Driving Comments 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 M6 OT- IP Functional Cognition Start: 03/08/21 10:20 Freq: Status: Active Protocol: Document 03/08/21 11:53 CGR (Rec: 03/08/21 12:05 CGR [id number]) Cognitive Factors Limiting Selfcare Function Cognitive Ability Level of Alertness Alert,Confusional State Patient Orientation Name,Month,Year,Place Ability to Follow Commands Able to Follow One Step Commands with Increased Time, Able to Follow One Step Commands with Repetition Cognitive Comments Cognitive Assessment Comments Pt was able to inconsistently answer questions with extra time for processing. OT- Vision and Hearing OT- Hearing Assessment OT- Hearing Assessment WFL OT- Vision Assessment Vision Assessment Comments Unable to follow commands for testing but pt attends throughout session. M7 OT- IP Mobility and Balance Start: 03/08/21 10:20 Freq: Status: Active Protocol: Document 03/08/21 11:53 CGR (Rec: 03/08/21 12:05 R [id number]) OT- Bed Mobility Assessment Supine to Sit Supine to Sit Assist Maximum Assistance,2 Person Assistance Scooting Scooting to Edge of Bed Maximum Assistance,2 Person Assistance OT-Transfer Assessment Sit to and From Stand Sit to and from Stand Moderate Assistance,2 Person Assistance Transfers Transfer Ability Moderate Assistance,2 Person Assistance Technique Transfer Destination Bed,Chair Transfer Technique Stand Step Pivot Devices Transfer Assistive Devices Gait Belt,Front Wheeled Walker Comments Mobility Comments Pt needs assist with initiation of all movement. Noted shakyness to BLE with standing that improved with time. OT- Balance Assessment Sitting Balance and Reactions Static Sitting Balance Ability Good Dynamic Sitting Balance Ability Fair M8 OT- IP Objective Assessments Start: 03/08/21 10:20 Freq: Status: Active Protocol: Document 03/08/21 11:53 CGR (Rec: 03/08/21 12:05 CGR [id number]) OT Gross Range of Motion Upper Extremity Range of Motion Assessment Within Functional Limits OT Strength Comments Strength Comments Pt was unable to follow commands for good assessment. OT- Coordination Assessment Upper Extremity Finger to Nose Test Bilateral UE Impaired Finger Tapping Test Bilateral UE Impaired OT-Muscle Tone Assessment Muscle Tone WNL Yes OT Sensation Assessment Edema Edema Absent M9 OT- IP Assessment and Plan Start: 03/08/21 10:20 Freq: Status: Active Protocol: Document 03/08/21 11:53 CGR (Rec: 03/08/21 12:05 CGR [id number]) OT Summary Assessment and Plan Potential Rehabilitation Potential Good Analytic Complexity at Evaluation High Summary OT Impairments Pain,Strength,Balance, Coordination,Functional Cognition,Functional Mobility, Self-Feeding,Grooming,Dressing ,Toileting,Bathing,Toilet Transfers,Shower Transfers, Activity Tolerance Progress Towards Goals Slow Progress due to Medical Issues Assessment Summary Pt presents as a high complexity evaluation s/p admit for likely acute bacterial meningitis. Pt presents with flat affect and need for initiation of all movement. Pt reports pain to her neck. Performed gentle stretching to her neck which she prefers rotated to the left. She was able to get just right of midline but reports pain. Pt left sitting up in chair at end of session. Nursing notified of need for assist with transfer back to bed. Chair fall alarm armed. Pt will benefit from SNF. Goals Self-Feeding Goal Independent Grooming Goal Independent Dressing Goal Independent Toileting Goal Independent Bathing Goal Independent Toilet Transfer Goal Independent Shower Transfer Goal Independent Days to Meet Goals 15 Frequency of Treatment Frequency Of Treatment Once a Day Treatment Plan OT Treatment Plan ADL Training,Functional Cognition Training,Functional Mobility,Therapeutic Exercises ,Patient/Family Education, Discharge Planning Other Treatment Recommendations and Next toilet trasfner, standing ADLs Treatment Focus if pt's mobility has improved Discharge Recommendations OT Discharge Recommendations SNF Rehab Transportation Needs at Discharge Wheelchair/Cabulance
[2021-03-08 12:00] VITALS: BP 102/69; PULSE 82; RESP 16; TEMP 36.4; O2SAT 96
[2021-03-08 12:08] LABS: Ionized Calcium 4.7 mg/dL (4.5-5.6)
--- NOTE | 2021-03-08 12:54 | CM.DPNOTE ---
Faxed snf clinicals per Avril to [facility] [phone] & to Patti at [facility] for snf auth. Received fax conf. Sunita Lockwood CM Asst.
[2021-03-08 13:39] LABS: HEMOLYSIS < 15 (0-50); Potassium 2.9 mmol/L (3.4-5.1)
--- NOTE | 2021-03-08 14:47 | CM.DPC ---
Addendum entered by RONAK Villaseñor 03/08/21 15:24: ADD: Sw also spoke to [facility] and confirms that pt has 100% coverage for home infusion but updated them that [facility] states they have their own ID MD to follow and own home infusion company. [facility] will follow in case still needed at d/c. BF Original Note: DCP SNF vs Home infusion and HH Per MD, pt remains needing 14 day course of IV-Abx and now ordering PT/OT as pt seems weak and below baseline. Per PT/OT, recommending SNF vs HH pending pt's progress but currently a 2PA. SW called spouse as pt was working with therapies and discussed SNF vs home with home infusion and HH. Spouse leaning towards SNF at least for duration of IV-Abx and discussed need to get [facility] insurance auth for SNF and accepting [facility] contracted SNF. Spouse states preference would be closer to their home in [facility] as they live [place]. Spouse confirms that pt is fully COVID vaccinated along with booster shot. SW also discussed if pt improves and is able to d/c home then home infusion can follow for the IV-Abx and HH. SW reached out to [facility] to determine if they cover [facility] and right now they do not have the staff to cover that area at this time. If home with HH, another HH agency will need to be secured. CARLY called pt's PCP office [facility] ([phone]) and inquired if pt's PCP would be willing to follow pt for IV-Abx after d/c and RN will discuss with pt's PCP Dr. Dougherty and call back. CARLY recieved a call from Norma at [facility] informing SOCIAL SCIENCE INSTRUCTOR that if pt discharges home with home infusion then [facility] has their own ID MD who would follow pt at d/c and Hospitalist would need to call the ID MD pager [phone] to discuss IV-Abx needs and then [facility] has their own [facility] company that they would set up for home if pt stable. CARLY provided MD with this information and he is agreeable to call [facility] ID MD if pt goes home. CARLY called following [facility] SNF's: [facility]- not contracted [facility]- not contracted [facility]- left detailed msg [facility]- left detailed msg [facility] [[email or web address] Cristi- ([phone]) yes they are contracted with [facility] and anticipating openings in the next 1-2 days and willing to review. SW faxed to [phone] and confirmed they received and they are requested updated notes be sent in the morning. CARLY called [facility] Segundo CM and updated on possible need for SNF and VINCE Dorsey kindly faxed SNF request for [email or web address] clinicals to review. CARLY also made referral to [facility] as back up if [facility] SNFs cannot accommodate. Plan: CARLY to follow closely for further PT/OT to confirm if SNF vs HH and [facility] [[email or web address] [place] and [facility] review to determine if they can accept. If home, then new HH referral needed and F2F and if SNF then [facility] needed. RONAK Villaseñor
[2021-03-08 16:00] VITALS: BP 110/70; PULSE 80; RESP 16; TEMP 36.6; O2SAT 94
[2021-03-08 17:09] LABS: CSF IgG Quantitative 65.5 mg/dL (0.0-6.7)
--- NOTE | 2021-03-08 17:41 | PM.PN.1 ---
Subjective Subjective Interval history: Patient is able to answer questions appropriately. She does endorse some mild neck pain, denies KOTHARI, photophobia. Per RN, patient has had PO intake, and is able to keep it down. Exam Vital Signs (past 8 hours): - 03/08/21 12:00 Temperature 97.6 F Pulse Rate 82 Respiratory Rate 16 Blood Pressure 102/69 Pulse Oximetry 96 Oxygen Delivery Method Room Air Oxygen Flow Rate 0 Narrative Exam Narrative: Patient sitting up in bed upon my entering the room, in no apparent acute distress Eyes Other: Right eye with no swelling today, and improved conjunctival irritation? Resp Other: Decreased breath sounds bilaterally and without adventitious breath sounds Cardio Other: Cardiac exam: Regular rate and rhythm, normal S1-S2 with no extra heart sounds or murmurs appreciated GI Other: Abdomen soft, non-tender, non-distended, with bowel sounds present Other: Siddiqi catheter in place Neuro CN II-XII intact, mild nuchal rigidity appreciated Extrem Other: No peripheral edema noted Objective Labs Result Diagrams: 03/08/21 05:54 03/08/21 05:54 Labs: Laboratory Results - last 24 hr 03/04/21 03/07/21 03/07/21 11:00 08:55 18:00 WBC RBC Hgb Hct MCV MCH MCHC RDW Plt Count Sodium Potassium 3.6 D Chloride Carbon Dioxide BUN Creatinine Estimated GFR BUN/Creatinine Ratio Glucose Calcium Ionized Calcium Elsi 4.7 Phosphorus Magnesium CSF IgG/Total Prot 65.5 H 03/08/21 03/08/21 03/08/21 05:34 05:54 05:54 WBC 7.0 RBC 3.93 L Hgb 11.0 L Hct 33.0 L MCV 83.8 MCH 28.1 MCHC 33.5 RDW 16.6 H Plt Count 100 L Sodium 140 Potassium 2.9 L 2.8 L Chloride 105 Carbon Dioxide 30 BUN 12 Creatinine 0.53 Estimated GFR > 60.0 BUN/Creatinine Ratio 22.6 H Glucose 102 Calcium 8.5 Ionized Calcium Elsi Phosphorus 2.7 L Magnesium 1.7 CSF IgG/Total Prot [facility] Medical History Mantle cell lymphoma Social History household members: spouse Smoking Status: Never smoker Assessment & Plan Assessment & Plan narrative: 1.Severe sepsis, 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 Probable urinary tract infection -urine culture growing Klebsiella oxytoca, sensitive to ceftriaxone, and will continue 4. Acute kidney injury -likely related to underlying severe infection -continue IV hydration -will avoid nephrotoxic agent -renal function improving 5. Elevated lipase, abnormal CT -doubt pancreatitis, but will follow closely 6. Hypokalemia -replenishment as needed 7. Right eye conjunctivitis -tobramycin eyedrops started VTE prophylaxis:?Heparin 5000 units tid Time Spent With Patient Critical Care time: I spent a total of [] minutes of critical care time on this patient's care today; this time is exclusive of procedural time. Quality VTE Deep Vein Thrombosis/Pulmonary Embolism Present on Admission: No
[2021-03-08 19:33] LABS: HEMOLYSIS < 15 (0-50); Potassium 4.5 mmol/L (3.4-5.1)
[2021-03-08 21:00] VITALS: BP 97/50; PULSE 87; RESP 24; TEMP 36.7; O2SAT 96
--- NOTE | 2021-03-08 22:03 | PC.NURSE ---
Addendum entered by Kim Hirsch R.N. 03/09/21 06:43: 0530 Went into room to replace IVF and patient states she pulled out port by mistake I didn't realize what it was. Tele leads also off so replaced. Port reaccessed at 0535 by Shilo Saunders RN and blood drawn for lab. At 0540 RNCHRISTINE, went into room and found patient having a seizure and called a staff emergency; states patient was shaky and rigid. When this RN arrived patient had been repositioned far onto left side and was foaming at mouth. Suction attempted but patient's teeth tightly clamped. When able to suction had bloody secretions returned. Dr. Iyer at bedside and ordered IV Ativan which was given and shortly after patient stopped seizing. HR elevated as high as 194. EKG was done as well as chest xray and then patient was transported downstairs for stat head CT. Vital signs prior to transporting to CT were 97.3-134 with BP of 144/85. Patient was on continuous oximetry at time of seizure and at no time did her RA sat drop below 92%. Patient transferred after to ICU room 228 and report given to RNPauline. Patient is currently not responding even to painful stimuli. Dr Iyer stated she would be calling family. Original Note: Patient has eyes open but mostly non responsive to questions asked but will occasionally say 1-2 words. Affect is flat and has blank look on face when asked questions. Breath sounds diminished and has shallow respirations but RA sat is 96%; remains on continuous oximetry. HRR with telemetry reading of SR. BP was low at 97/50. BT hyperactive and patient was incontinent of loose, dark brown stool. Skin on inner buttocks/around rectum reddened but no open areas; barrier cream applied after skin cleansed. Indwelling catheter is patent; urine is clear, yellow. Remains very weak and needs to be repositioned q2h. Wearing bilateral calf SCD's. FLACC score is 0. Fall risk is high and bed alarm is activated.
[2021-03-09] VITALS (18 sets, daily range): BP systolic 94–144; BP diastolic 52–85; PULSE 24–134; RESP 21–99; TEMP 29.4–37.8; O2SAT 92–100
[2021-03-09] MEDS: VANCOMYCIN 1,000 MG/200 ML PIGGYBACK 200 MG IV ×2 (00:40→14:28)
[2021-03-09] MEDS: TOBRAMYCIN 0.3% 2 DROPS EYE-RIGHT ×6 (02:44→21:21)
[2021-03-09] MEDS: ACETAMINOPHEN 325 MG TABLET 650 MG PO (03:00)
[2021-03-09] MEDS: cefTRIAXone 2,000 MG in SODIUM CHLORIDE 0.9% 100 ML 200 ML IV ×2 (03:09→18:27)
[2021-03-09] MEDS: KCL 20 MEQ IN NS 1,000 ML 100 MEQ IV (04:48)
[2021-03-09] MEDS: LIDOCAINE 1% 20 ML SUBCUT (05:35)
[2021-03-09] MEDS: LORazepam 2 MG/ML INJ IV ×2 (05:50→23:28)
--- NOTE | 2021-03-09 05:54 | DI.RAD.S_ITS ---
PROCEDURE: XR CHEST 1V INDICATIONS: possible aspiration TECHNIQUE: One view of the chest was acquired. COMPARISON: [facility], CR, XR CHEST 1V, 03/03/2021, 16:15. FINDINGS: Surgical changes and devices: Right chest wall Port-A-Cath is stable.. Lungs and pleura: Increased central venous congestion and interstitial prominence concerning for CHF/fluid overload. Trace left-sided pleural effusion. No pneumothorax. Mediastinum: Mediastinal contours appear normal. Heart size is normal. Bones and chest wall: No suspicious bony lesions. Overlying soft tissues appear unremarkable. IMPRESSION: Radiographic findings concerning for CHF/fluid overload. Dictated by: Araceli Tierney MD, PhD on 03/09/2021 at 8:10 Approved by: Araceli Tierney MD, PhD on 03/09/2021 at 8:11
--- NOTE | 2021-03-09 05:54 | DI.CT.S_ITS ---
PROCEDURE: CT HEAD/BRAIN WO CON INDICATIONS: possible bleed, seizure TECHNIQUE: Noncontrast 4.5 mm thick angled axial sections acquired from the foramen magnum to the vertex, with coronal and sagittal reformats. For radiation dose reduction, the following was used: automated exposure control, adjustment of mA and/or kV according to patient size. COMPARISON: [facility], CT, CT HEAD/BRAIN WO CON, 03/03/2021, 18:12. FINDINGS: Image quality: Excellent. CSF spaces: Basal cisterns are patent. No extra-axial fluid collections. The ventricles are symmetric in size and shape. Brain: No intracranial bleeds or masses. There is cerebral volume loss for age, with resultant ventricular and sulcal prominence. There are periventricular and deep white matter chronic small vessel ischemic changes. There is intracranial internal carotid artery atherosclerosis. Skull and face: Calvarium and visualized facial bones appear intact, without suspicious lesions. Sinuses: Visualized sinuses and mastoids are clear. IMPRESSION: No acute intracranial disease process. Dictated by: Araceli Tierney MD, PhD on 03/09/2021 at 7:53 Approved by: Araceli Tierney MD, PhD on 03/09/2021 at 7:55
[2021-03-09 06:04] LABS: Hematocrit 32.7 % (36-46); Hemoglobin 10.9 g/dL (12.0-16.0); Mean Corpuscular HGB Conc 33.4 % (30-36); Mean Corpuscular Hemoglobin 27.9 PG (26-34); Mean Corpuscular Volume 83.8 fL (80-100); Platelet Count 123 X10^3/uL (150-400); Red Blood Cell Count 3.91 X10^6/uL (4.0-5.2); Red Cell Distribution Width 16.7 % (11.6-14.8); White Blood Cell Count 7.3 X10^3/uL (4.5-11.0)
--- NOTE | 2021-03-09 06:09 | P.EN_ITS ---
Event Note Date Patient Seen: 03/09/21 Time Patient Seen: 06:09 Event Note: Patient is a 60-year-old female here in the hospital with pneumococcal meningitis. The patient was observed to abrupt onset of generalized tonic- clonic seizures. Patient is unconscious, eyes deviated left, and foaming at the mouth. She has loud rhonchi. It appears she may have aspirated. Patient was given 2 mg of IV Ativan and the seizure was aborted. Chest x-ray was obtained which shows what looks like an early right middle lobe pneumonia. EKG shows a sinus tachycardia. Stat labs have been sent, patient was has had no further seizures. She is being sent down for a head CT at this time. Patient will be transferred to the intensive care unit. Consider repeating LP given deterioration and worsening neurological findings. The or will start IV Keppra 1 g loading at this time. Will continue IV hydration, patient will be started on Unasyn for presumed aspiration pneumonia. 30 minutes critical care time were spent with this patient
[2021-03-09 06:13] LABS: BUN Creatinine Ratio 20.4 (6-22); Blood Urea Nitrogen 11 mg/dL (7-17); Carbon Dioxide 26 mmol/L (22-32); Chloride 107 mmol/L (98-107); Estimated Glomerular Filt Rate > 60.0 mL/min (>60); Glucose 106 mg/dL (80-110); HEMOLYSIS < 15 (0-50); Magnesium 1.7 mg/dL (1.6-2.3); Phosphorous 3.1 mg/dL (2.8-4.1); Potassium 3.8 mmol/L (3.4-5.1); Sodium 139 mmol/L (137-145)
[2021-03-09 06:24] LABS: Troponin I < 0.012 ng/mL (0.01-0.034)
--- NOTE | 2021-03-09 06:57 | PC.NURSE ---
0630 Pt transferred to 228 from [facility] after having a seizure - known dx of pneumococcal menningitis. Ativan given prior to transfer and seizure abated. Currently pt is post ictal, HR 100 BP 102/64, O2 sats 92 on 100%NRB. IV of NS w 20meq kcl infusing to r upper chest port a cath. Waiting for call [facility] TeleICU for further orders.
--- NOTE | 2021-03-09 07:18 | PM.CN.EICU ---
History of Present Illness Consult details Chief complaint: fever/weakness x2 days :: This patient was seen via real time interactive two-way audiovisual telecommunication. 60-year-old female with PMH of Lymphoma who presented 03/03/21 with fever and AMS. She was admitted with Pneumococal Meningitis and started on Vancomycin and Ceftriaxone. This morning she had a generalized tonic-clonic seizure. She was given Ativan 2 mg and seizure stopped and now she is lethargic post-ictal. She also aspirated as she was reported to have loud rhonchi on exam and CXR shows RML infiltrate. Pt. started on Unasyn for aspiration PNA. [facility] Medical History Mantle cell lymphoma Social History household members: spouse Smoking Status: Never smoker Current Medications Current Medications Medications: Home Medications No Known Home Medications 03/07/21 [History Confirmed 03/07/21] Visit Medications (administered) Generic Name Dose Route Start Last Admin Trade Name Freq PRN Reason Stop Dose Admin Acetaminophen 650 mg 03/03/21 21:57 03/09/21 03:00 Acetaminophen 325 Mg Tablet PO 650 mg Q6HR PRN Administration Fever/Mild Pain (1-3) Acetaminophen 650 mg 03/04/21 12:54 03/05/21 23:40 Acetaminophen 650 Mg Supp VT 650 mg Q6HR PRN Administration Fever/Mild Pain (1-3) Heparin Sodium (Porcine) 5,000 unit 03/03/21 22:00 03/08/21 21:26 Heparin 5,000 Unit/Ml Vial SUBCUT 5,000 unit BID DEZ Administration Vancomycin HCl 1,000 mg in 200 mls @ 200 mls/hr 03/04/21 13:00 03/09/21 01:50 Vancomycin IV Infused Q12H DEZ Infusion Potassium Chloride/Sodium Chloride 1,000 mls @ 100 mls/hr 03/05/21 16:45 03/09/21 04:48 Ns With Kcl 20 Meq IV 100 mls/hr CONT DEZ Administration Ceftriaxone Sodium 2,000 mg/ 100 mls @ 200 mls/hr 03/06/21 03:30 03/09/21 03:40 Sodium Chloride IV Infused Q12H DEZ Infusion Ondansetron HCl 4 mg 03/03/21 17:57 03/03/21 18:02 Ondansetron 4 Mg/2 Ml Inj IV 4 mg Q6HR PRN Administration Nausea And Vomiting Sodium Chloride 10 ml 03/08/21 09:00 03/08/21 21:26 Sodium Chloride 0.9% Flush IV 10 ml BID DEZ Administration Tobramycin Sulfate 2 drops 03/05/21 14:30 03/09/21 02:44 Tobramycin 0.3% Ophth Aranza EYE-RIGHT 2 drops Q4H DEZ Administration Exam Vital Signs (past 8 hours): - 03/09/21 00:44 03/09/21 06:02 Temperature 98.9 F 97.3 F L Pulse Rate 83 134 H Respiratory Rate 24 Blood Pressure 118/64 144/85 H Pulse Oximetry 99 Oxygen Delivery Method Room Air Oxygen Flow Rate 0 Objective Labs Result Diagrams: 03/09/21 05:35 03/09/21 05:35 Labs: Laboratory Results - last 24 hr 03/04/21 03/07/21 03/08/21 11:00 08:55 05:34 WBC RBC Hgb Hct MCV MCH MCHC RDW Plt Count Sodium Potassium 2.9 L Chloride Carbon Dioxide BUN Creatinine Estimated GFR BUN/Creatinine Ratio Glucose Calcium Ionized Calcium Elsi 4.7 Phosphorus Magnesium Troponin I CSF IgG/Total Prot 65.5 H 03/08/21 03/08/21 03/09/21 05:54 19:20 05:35 WBC 7.3 RBC 3.91 L Hgb 10.9 L Hct 32.7 L MCV 83.8 MCH 27.9 MCHC 33.4 RDW 16.7 H Plt Count 123 L Sodium Potassium 2.8 L 4.5 D Chloride Carbon Dioxide BUN Creatinine Estimated GFR BUN/Creatinine Ratio Glucose Calcium Ionized Calcium Elsi Phosphorus Magnesium Troponin I CSF IgG/Total Prot 03/09/21 03/09/21 05:35 05:35 WBC RBC Hgb Hct MCV MCH MCHC RDW Plt Count Sodium 139 Potassium 3.8 Chloride 107 Carbon Dioxide 26 BUN 11 Creatinine 0.54 Estimated GFR > 60.0 BUN/Creatinine Ratio 20.4 Glucose 106 Calcium 9.0 Ionized Calcium Elsi Phosphorus 3.1 Magnesium 1.7 Troponin I < 0.012 CSF IgG/Total Prot Assessment & Plan Assessment & Plan narrative: Pneumococcal Meningitis New Onset Seizure Aspiraton PNA h/o of Lymphoma Recommendations -start Keppra -if increased WBC or new fever, then repeat LP and weldon culture -check ABG to make sure there is no hypercapnic respiratory failure -agree with Unasyn for aspiraton PNA -check sputum culture -if further seizures or no improvement in mental status back to baseline consider transfer to hospital with neurologist and EEG capabilities case discussed with Dr. Iyer CCT spent 45 min Time Spent With Patient Critical Care time: I spent a total of [] minutes of critical care time on this patient's care today; this time is exclusive of procedural time.
[2021-03-09] MEDS: AMPICILLIN/SULBACTAM 3 GM 3 GM in SODIUM CHLORIDE 0.9% 100 ML IV ×3 (08:24→20:27)
[2021-03-09] MEDS: HEPARIN 5,000 UNIT/ML VIAL 5000 UNIT SUBCUT ×3 (08:24→21:13)
[2021-03-09] MEDS: SODIUM CHLORIDE 0.9% FLUSH 10 ML IV ×2 (08:53→21:10)
[2021-03-09] MEDS: levETIRAcetam 1,000 MG in SODIUM CHLORIDE 0.9% 100 ML 440 ML IV ×2 (09:05→20:21)
[2021-03-09 09:16] LABS: PCO2 ABG 35.6 mmHg (35-45); pH ABG 7.48 (7.35-7.45)
[2021-03-09 09:19] LABS: Fractionated Inspired Oxygen 100; HCO3 ABG 26 mmol/L (22-26); Oxygen Saturation ABG 100 % (95-100); PO2 ABG 372 mmHg (80-100); TCO2 ABG 27 mmol/L (21-31)
--- NOTE | 2021-03-09 09:37 | CM.DPC ---
DCP Cont: Maikel from [facility] called for an update. Let him know that patient is now in the ICU secondary to having seizure, aspiration pneumonia. Updated him on [place] I[facility]D provider that would follow patient if she is able to go home, but unclear at this time, as patient is not medically stable, and was weak working with P.T. yesterday. Maikel indicated that he had already spoken with Pardeep, , and is on board if home infusions are possible. Patient is 100% covered for her IV meds. P: DCP to continue to follow. RONAK Mackenzie, had sent referrals to [email or web address], as well as [facility] in [place], who according to notes, would have openings in the next day or two. Will discuss at team rounds and look at when patient would medically be ready for discharge. Alicia Seth, RN/Senior Manufacturing Supervisor
--- NOTE | 2021-03-09 10:55 | PM.PN.1 ---
Subjective Subjective Interval history: Patient is very somnolent this morning, unable to answer questions fully. This could be post-ictal confusion, as she suffered from a seizure episode yesterday. Ativan seems to have calmed the seizure down. She is being maintained on IV Keppra 1000 mg bid now. Exam Vital Signs (past 8 hours): - 03/09/21 06:02 03/09/21 06:20 03/09/21 07:00 Temperature 97.3 F L 97.9 F 97.6 F Pulse Rate 134 H 104 H 101 H Respiratory Rate 22 21 Blood Pressure 144/85 H 120/79 102/66 Pulse Oximetry 98 94 03/09/21 07:30 03/09/21 08:30 03/09/21 09:00 Temperature Pulse Rate 102 H 98 H 91 H Respiratory Rate 24 26 H 23 Blood Pressure 105/71 116/74 119/71 Pulse Oximetry 95 100 100 03/09/21 09:34 03/09/21 10:00 Temperature Pulse Rate 90 88 Respiratory Rate 25 H 29 H Blood Pressure 121/64 116/70 Pulse Oximetry 98 99 Oxygen Delivery Method Room Air Oxygen Flow Rate 0 Narrative Exam Narrative: Patient laying in bed upon my entering the room, somnolent but arousable, unable to answer questions fully Eyes Other: Right eye with no swelling today, and improved conjunctival irritation? Resp Other: Decreased breath sounds bilaterally with faint wet crackles appreciated Cardio Other: Regular rate and rhythm, normal S1-S2 with no extra heart sounds or murmurs appreciated GI Other: Abdomen soft, non-tender, non-distended, with bowel sounds present Other: Siddiqi catheter in place Neuro Mild nuchal rigidity appreciated Extrem Other: No peripheral edema noted Objective Labs Result Diagrams: 03/09/21 05:35 03/09/21 05:35 Labs: Laboratory Results - last 24 hr 03/04/21 03/07/21 03/08/21 11:00 08:55 05:34 WBC RBC Hgb Hct MCV MCH MCHC RDW Plt Count ABG pH ABG pCO2 ABG pO2 ABG HCO3 ABG Total CO2 ABG O2 Saturation ABG Base Excess FiO2 Sodium Potassium 2.9 L Chloride Carbon Dioxide BUN Creatinine Estimated GFR BUN/Creatinine Ratio Glucose Calcium Ionized Calcium Elsi 4.7 Phosphorus Magnesium Troponin I CSF IgG/Total Prot 65.5 H 03/08/21 03/08/21 03/09/21 05:54 19:20 05:35 WBC 7.3 RBC 3.91 L Hgb 10.9 L Hct 32.7 L MCV 83.8 MCH 27.9 MCHC 33.4 RDW 16.7 H Plt Count 123 L ABG pH ABG pCO2 ABG pO2 ABG HCO3 ABG Total CO2 ABG O2 Saturation ABG Base Excess FiO2 Sodium Potassium 2.8 L 4.5 D Chloride Carbon Dioxide BUN Creatinine Estimated GFR BUN/Creatinine Ratio Glucose Calcium Ionized Calcium Elsi Phosphorus Magnesium Troponin I CSF IgG/Total Prot 03/09/21 03/09/21 03/09/21 05:35 05:35 07:52 WBC RBC Hgb Hct MCV MCH MCHC RDW Plt Count ABG pH 7.48 H ABG pCO2 35.6 ABG pO2 372 H* ABG HCO3 26 ABG Total CO2 27 ABG O2 Saturation 100 ABG Base Excess 3.0 H FiO2 100 Sodium 139 Potassium 3.8 Chloride 107 Carbon Dioxide 26 BUN 11 Creatinine 0.54 Estimated GFR > 60.0 BUN/Creatinine Ratio 20.4 Glucose 106 Calcium 9.0 Ionized Calcium Elsi Phosphorus 3.1 Magnesium 1.7 Troponin I < 0.012 CSF IgG/Total Prot [facility] Medical History Mantle cell lymphoma Social History household members: spouse Smoking Status: Never smoker Assessment & Plan Assessment & Plan narrative: 1.Severe sepsis, 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 Likely aspiration pneumonia, likely bacterial etiology -IV Unasyn started on March 09 4. 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 Probable urinary tract infection, resolved -urine culture growing Klebsiella oxytoca, sensitive to ceftriaxone, and has been on ceftriaxone for problem 1 for several days 6. Acute kidney injury, resolved -likely related to underlying severe infection -continue IV hydration -will avoid nephrotoxic agent -renal function improving 7. Elevated lipase, abnormal CT -doubt pancreatitis, but will follow closely 8. Hypokalemia -replenishment as needed 9. Right eye conjunctivitis -tobramycin eyedrops started VTE prophylaxis:?Heparin 5000 units tid PT/OT: Recommends SNF Time Spent With Patient Critical Care time: I spent a total of [] minutes of critical care time on this patient's care today; this time is exclusive of procedural time. Quality VTE Deep Vein Thrombosis/Pulmonary Embolism Present on Admission: No
--- NOTE | 2021-03-09 11:04 | PT-IP ANOTE ---
Per RN, pt not appropriate for PT this AM due to recent seizure. Will check back later.
--- NOTE | 2021-03-09 11:04 | PM.ICURNDS ---
- :: This patient was seen via real time interactive two-way audiovisual telecommunication. patient reamins encephalopathic due to meningits. Patient is on high dose ceftriaxone. currntly on keppra for seizure. will order nystatin for possible candidal infection in her intratrigenous spaces. f/u csf cx ( so far growing strep) keep npo, map goal > 65, trend bmp/cbc montor UO, dvt ppx
--- NOTE | 2021-03-09 12:17 | DI.CT.S_ITS ---
PROCEDURE: CT ANGIO CHEST PE PROTOCOL INDICATIONS: Concern for pulmonary septic emboli TECHNIQUE: After the administration of intravenous contrast, 2 mm thick sections acquired from the pulmonary apices to the posterior costophrenic angles. 3-dimensional maximum intensity projection (MIP) coronal and sagittal reformats were then acquired through the thorax. For radiation dose reduction, the following was used: automated exposure control, adjustment of mA and/or kV according to patient size. COMPARISON: [facility], CT, CT CHEST ABD PEL WO CON, 03/03/2021, 18:12. FINDINGS: Image quality: Excellent. Pulmonary arteries: Pulmonary arteries are normal in size, and demonstrate no intraluminal filling defects to suggest central pulmonary embolism. . Lungs and pleura: Small bilateral pleural effusions and bibasilar atelectasis. Central and peripheral airways are patent. Mediastinum: Heart size is normal, without pericardial effusion. No mediastinal or hilar adenopathy. Thoracic aorta is normal in caliber and enhancement. Esophagus is normal in caliber, without hiatal hernia. Bones and chest wall: No suspicious bony lesions. Ribs and thoracic spine appear intact throughout. Thyroid gland is unremarkable as visualized. No axillary or supraclavicular adenopathy. Abdomen: Mild upper abdominal ascites. Visualized upper abdominal solid organs appear normal in the early arterial phase of enhancement. IMPRESSION: 1. No evidence acute pulmonary emboli. 2. Small bilateral pleural effusions and bibasilar atelectasis. 3. Mild upper abdominal ascites. Dictated by: Sriram Lazo M.D. on 03/09/2021 at 13:15 Approved by: Sriram Lazo M.D. on 03/09/2021 at 13:20
[2021-03-09] MEDS: FUROSEMIDE 20 MG/2 ML VIAL IV (13:05)
[2021-03-09 13:40] LABS: Vancomycin Trough 8.7 ug/mL (10-20)
--- NOTE | 2021-03-09 13:45 | OT.IPNOTE ---
Check on pt twice for OT treatment and nursing states not appropriate today as not fully awake yet as she had a seizure last night. Check on pt tomorrow for OT.
--- NOTE | 2021-03-09 14:03 | PT-IP ANOTE ---
Per RN, pt still not appropriate to be seen this PM. Will attempt again tomorrow.
[2021-03-09] MEDS: NYSTATIN CREAM 30 GM 1 APPLIC TOP ×2 (14:25→21:11)
--- NOTE | 2021-03-09 14:34 | CM.DPC ---
DCP Cont: Checked in with patient and , Pardeep. He is working on patient's halfway disability through her employer. He is hoping that hospitalist can write a note about her illness, since she will not be able to work. Let know that care management is available for any needs. Discussed patient during team rounds. She had a seizure last night, and there were some concerns about possible aspiration pneumonia. Patient is laying in bed, awake, quiet. Hospitalist indicated during team rounds that he is attempting to get patient transferred to a higher level hospital in the [facility], due to the need of a neurologist. P: DCP to continue to follow. Have already updated Maikel from [facility]. Did give him the phone number of the [place] I&D provider, should she go home with IV ABO, but at this time, is unclear if she will be able to go home. Alicia Seth RN/Marriage And Family Teacher
--- NOTE | 2021-03-09 14:52 | PC.NURSE ---
Addendum entered by Natalya Ferrell R.N. 03/09/21 19:24: 1740-Returned from MRI, Patient continues with slow mentation. IV ABX infusing late, IV Vanco peak was redrawn @ 1740 as Pt off floor. Addendum entered by Natalya Ferrell R.N. 03/09/21 17:30: Good output via miller, udpate on CT provided to Spouse, still working on transfer to higher acuity facility, no accepting as of 1699. Pt has been too drowsy for meals, unable to safely swallow. Wakes and responds to voice, tracks with eyes, but dozes off during assessment. Pupils are reactive, sluggish. Pt making effort to keep eyes closed, wincing noted, My head...it hurts Unable to take PO APAP. Given SC. No further seizure activity noted. Down for MRI @ 1700 Original Note: Am shift Pt is alert to touch only. Significant delay to speech, but will answer yes or no to questions. Oral care provided. Pt is post ictal, no further neizure activity noted at this time. Changed to ICU status as Pt is requiring signifcantly more care. Seizure precautions in place and PIV SL. POrt to R chest accessed, but HL at present. IV Lasix given. Good output to miller. Pt Is noted with some crackles to bases of lungs.
[2021-03-09 16:38] LABS: Vancomycin Peak 58.4 ug/mL (20-40)
--- NOTE | 2021-03-09 17:00 | DI.MRI.S_ITS ---
PROCEDURE: MR THORACIC SPINE WO/W CON INDICATIONS: Patient unable to move lower extremities TECHNIQUE: Noncontrast sagittal T1 spin echo and T2 fast spin echo, sagittal STIR, axial T1 and T2 fast spin echo through the thoracic spine. After the administration of contrast, axial and sagittal T1 spin echo with fat saturation through the thoracic spine. COMPARISON: [facility], CT, CT ANGIO CHEST PE PROTOCOL, 03/09/2021, 12:22. FINDINGS: Image quality: Excellent. Alignment and curvature: There is normal bony alignment. Marrow: Marrow is of normal overall signal. No acute vertebral body compression fractures. Spinal cord: Visualized spinal cord is of normal signal and size, without abnormal enhancement. Paraspinous soft tissues: No paravertebral masses or abnormal enhancement. Miscellaneous: Central canal and foramina appear widely patent at all scanned levels. Incidentally noted of small bilateral pleural effusion more prominent on the right side with adjacent bibasilar atelectasis better evaluated on CT of chest study from the same day. IMPRESSION: 1. No compression fracture or spondylolisthesis is seen in thoracic spine. No marrow edema. No area of abnormal intraosseous enhancement. 2. No signal abnormality is seen in thoracic spinal cord. No area of abnormal enhancement is seen within thoracic spinal canal. 3. No significant disc herniation, canal stenosis or neural foraminal narrowing is seen in thoracic spine. No abnormal paraspinous soft tissue enhancement. Dictated by: Freeman Hoff M.D. on 03/09/2021 at 18:45 Approved by: Freeman Hoff M.D. on 03/09/2021 at 18:47
--- NOTE | 2021-03-09 17:02 | DI.MRI.S_ITS ---
PROCEDURE: MR LUMBAR SPINE WO/W CON INDICATIONS: Patient unable to move lower extremities TECHNIQUE: Noncontrast sagittal T1 spin echo and T2 fast spin echo, sagittal STIR, axial T1 and T2 fast spin echo through the lumbar spine. In cases with scoliosis, additional coronal T2 fast spin echo may be performed. After the administration of contrast, sagittal and axial T1 spin echo with fat saturation through the lumbar spine. COMPARISON: None. FINDINGS: Image quality: Excellent. Alignment and curvature: There is normal bony alignment. Marrow: Marrow is of normal overall signal. No acute vertebral body compression fractures. No suspicious marrow enhancement. Spinal cord: Conus medullaris terminates at the L1 level. Visualized spinal cord demonstrates normal signal, without suspicious enhancement. Paraspinous soft tissues: No paravertebral masses or abnormal enhancement. T12-L1: Normal appearance. L1-L2: Slight loss of disc signal. No significant canal stenosis or neural foraminal narrowing. L2-L3: Slight loss of disc signal. No significant canal stenosis or neural foraminal narrowing. L3-L4: Slight loss of disc signal and disc height. Diffuse disc bulge and bilateral facet arthrosis with hypertrophy of ligamentum flavum is seen. No significant canal stenosis or neural foraminal narrowing. L4-L5: There is mild loss of disc signal and disc height. Broad-based disc bulge and bilateral facet arthrosis with hypertrophy of ligamentum flavum is seen. No significant central canal stenosis. Left worse than right bilateral neural foraminal narrowing is seen. L5-S1: There is loss of disc height and disc signal. Broad-based disc bulge and bilateral facet arthrosis is seen with mild central canal stenosis and right worse than left bilateral neural foraminal narrowing. IMPRESSION: 1. Degenerative disc bulge and bilateral facet arthrosis at L4-5 and L5-S1 levels causing mild central canal stenosis and bilateral neural foraminal narrowing as above. 2. No marrow edema. No acute compression fracture or spondylolisthesis. No abnormal intraosseous enhancement. 3. No gross paraspinous soft tissue enhancement is seen. No signal abnormality is seen in visualized portion of the spinal cord. Dictated by: Freeman oHff M.D. on 03/09/2021 at 18:33 Approved by: Freeman Hoff M.D. on 03/09/2021 at 18:38
[2021-03-09] MEDS: ACETAMINOPHEN 650 MG SUPP PR (18:00)
--- NOTE | 2021-03-09 21:14 | PM.ICURNDS ---
- :: This patient was seen via real time interactive two-way audiovisual telecommunication. 60 yo woman with PMH of Lymphoma admitted 03/03/21 with AMS and Strep Pneumo bacteremia and meningitis. Pt started on Ceftraixone and Vancomycin. Overall mental status, fever curve, and leukocytosis improved but on 03/09/21 pt. had new onset episode of generalized tonic clonic siezure and aspiration RML PNA. Pt. transferred to ICU. She got ativan 2 mg IVP and started on Keppra. No further seizures since then. She was lethargic post-ictal but her mental status has improved since then. Unasyn was added for Aspiration PNA. TOnight her T max is 100.1 -will repeat blood, sputum, and urine culture -given pt. already on Ceftriaxone and Vanco, will switch from Unasyn to Flagyl as Unasyn is only giving added coverage of anaerobes -pt awaiting transfer to another hospital with neurology and ID service CCT 30 min
[2021-03-09] MEDS: metroNIDAZOLE 500 MG/100 ML PIGGYBACK 100 MG IV (22:04)
[2021-03-09 22:26] LABS: Appearance Urine UA CLEAR; Bilirubin Urine UA NEGATIVE (NEGATIVE); Color Urine UA YELLOW; Glucose Urine UA NEGATIVE (Negative); Ketones Urine UA NEGATIVE (NEGATIVE); Leukocyte Esterase Urine UA NEGATIVE (NEGATIVE); Nitrite Urine UA NEGATIVE (Negative); Occult Blood Urine UA TRACE-INTACT (Negative); Protein Urine UA TRACE (Negative); Urobilinogen Urine UA 0.2 E.U./dL (0.2)
[2021-03-09 22:33] LABS: Bacteria Urine Occasional (0-1); Culture Indicated Urine Specimen Cultured; RBC Urine 5-10/HPF (0-5/HPF); Squamous Epithelial Cell Urine 0-1 /HPF (0-5/HPF); WBC Urine 5-10/HPF (0-5/HPF)
--- NOTE | 2021-03-09 23:41 | PM.EICU.INT ---
Teleintensivist Intervention Date/Time Was camera activated?: Yes Date Patient Seen: 03/09/21 Time Patient Seen: 23:35 Issue(s) Addressed Issue(s): Pain, Agitation, Sedation, Delirium (brief episode of generalized tonic clonic seizure) Other:: brief episode of generalized tonic clonic seizure. Intervention(s) :: -ativan 2 mg IVP given -started Depacon 500 mg IVPB BID -continue Keppra 1000 mg BID -awaiting transfer to another hospital with neurologist for seizure management CCT spent 25 min Plan discussed with: Nurse
--- NOTE | 2021-03-09 23:51 | PC.NURSE ---
2326 Pt began having a generalized seizure, eyes deviated to the left, snoring respiration. Ativan 2mg IV given and seizure abated. TeleICU Doc and hospitalist made aware and orders received. Pt currently post ictal and not responding to verbal commands. VSS
[2021-03-10] MEDS: VALPROIC ACID 500 MG in DEXTROSE 5 % IN WATER 50 ML 55 ML IV ×2 (00:03→09:28)
[2021-03-10] MEDS: VANCOMYCIN 1,500 MG/300 ML PIGGYBACK 200 MG IV ×2 (01:19→12:16)
[2021-03-10] MEDS: TOBRAMYCIN 0.3% 2 DROPS EYE-RIGHT ×4 (02:55→14:12)
[2021-03-10] MEDS: cefTRIAXone 2,000 MG in SODIUM CHLORIDE 0.9% 100 ML 200 ML IV ×2 (02:55→15:10)
[2021-03-10 03:00] VITALS: BP 107/63; PULSE 99; RESP 25; TEMP 36.5; O2SAT 99
[2021-03-10 04:38] LABS: Hematocrit 33.7 % (36-46); Hemoglobin 11.2 g/dL (12.0-16.0); Mean Corpuscular HGB Conc 33.4 % (30-36); Mean Corpuscular Hemoglobin 27.9 PG (26-34); Mean Corpuscular Volume 83.6 fL (80-100); Platelet Count 165 X10^3/uL (150-400); Red Blood Cell Count 4.03 X10^6/uL (4.0-5.2); Red Cell Distribution Width 16.2 % (11.6-14.8); White Blood Cell Count 8.4 X10^3/uL (4.5-11.0)
[2021-03-10 04:42] LABS: BUN Creatinine Ratio 23.7 (6-22); Blood Urea Nitrogen 14 mg/dL (7-17); Calcium 8.8 mg/dL (8.4-10.2); Carbon Dioxide 29 mmol/L (22-32); Chloride 104 mmol/L (98-107); Estimated Glomerular Filt Rate > 60.0 mL/min (>60); Glucose 104 mg/dL (80-110); HEMOLYSIS < 15 (0-50); Magnesium 1.8 mg/dL (1.6-2.3); Phosphorous 3.7 mg/dL (2.8-4.1); Potassium 3.1 mmol/L (3.4-5.1); Sodium 141 mmol/L (137-145)
[2021-03-10 05:11] LABS: Alanine Aminotransferase 43 IU/L (<35); Albumin Globulin Ratio 1.2 (1.0-2.8); Alkaline Phosphatase 65 U/L (38-126); Aspartate Aminotransferase 38 IU/L (14-36); Bilirubin Total 0.3 mg/dL (0.2-1.3); Bilirubin Unconjugated 0.2 mg/dL (0.0-1.1); Globulin 2.5 g/dL (1.7-4.1); HEMOLYSIS < 15 (0-50); Total Protein 5.5 g/dL (6.3-8.2)
[2021-03-10] MEDS: metroNIDAZOLE 500 MG/100 ML PIGGYBACK 100 MG IV ×2 (05:18→12:16)
[2021-03-10 05:27] LABS: Add Manual Diff / Slide Review YES
[2021-03-10] MEDS: POTASSIUM CHLORIDE IN WATER 10 MEQ/100 ML PIGGYBACK 100 MEQ IV ×4 (06:22→10:25)
[2021-03-10 07:00] VITALS: BP 104/59; PULSE 92; RESP 24; TEMP 36.6; O2SAT 100
[2021-03-10 08:27] LABS: Hypochromasia 2+; Neutrophils Absolute Manual 3864 /uL (3000-5900); Target Cells 2+; Total Cells Counted 100
[2021-03-10] MEDS: NYSTATIN CREAM 30 GM 1 APPLIC TOP ×2 (08:41→15:09)
[2021-03-10] MEDS: SODIUM CHLORIDE 0.9% FLUSH 10 ML IV (08:42)
[2021-03-10] MEDS: HEPARIN 5,000 UNIT/ML VIAL 5000 UNIT SUBCUT ×2 (08:52→15:14)
--- NOTE | 2021-03-10 08:59 | OT.IPNOTE ---
Per nurse pt looking to transfer to higher care and not appropriate for therapy at this time. Therefore discharge pt from OT services.
[2021-03-10] MEDS: levETIRAcetam 1,000 MG in SODIUM CHLORIDE 0.9% 100 ML 440 ML IV (09:29)
[2021-03-10 11:00] VITALS: BP 99/58; PULSE 92; RESP 26; O2SAT 96
[2021-03-10 11:36] LABS: HIV-1 RNA by PCR <40 copies/mL (.)
--- NOTE | 2021-03-10 11:42 | P.TELICUPN_ITS ---
Subjective Subjective :: This patient was seen via real time interactive two-way audiovisual telecommunication. Received 2mg IV ativan for TC seizure activity O/N, refractory, depakote added. No other seizure activity reported. Mumbles yes/no to simple questions this am during rounds, appears post-ictal. Awaiting transfer to [facility] pending bed availability Current Medications Current Medications Medications: Home Medications No Known Home Medications 03/07/21 [History Confirmed 03/07/21] Visit Medications (administered) Generic Name Dose Route Start Last Admin Trade Name Freq PRN Reason Stop Dose Admin Acetaminophen 650 mg 03/03/21 21:57 03/09/21 03:00 Acetaminophen 325 Mg Tablet PO 650 mg Q6HR PRN Administration Fever/Mild Pain (1-3) Acetaminophen 650 mg 03/04/21 12:54 03/09/21 18:00 Acetaminophen 650 Mg Supp MT 650 mg Q6HR PRN Administration Fever/Mild Pain (1-3) Heparin Sodium (Porcine) 5,000 unit 03/09/21 15:00 03/10/21 08:52 Heparin 5,000 Unit/Ml Vial SUBCUT 5,000 unit TID DEZ Administration Potassium Chloride/Sodium Chloride 1,000 mls @ 100 mls/hr 03/05/21 16:45 1 05/11/20 07:39 Ns With Kcl 20 Meq IV Infused CONT DEZ Infusion Ceftriaxone Sodium 2,000 mg/ 100 mls @ 200 mls/hr 03/06/21 03:30 03/10/21 05:20 Sodium Chloride IV Infused Q12H DEZ Infusion Levetiracetam 1,000 mg/ Sodium 110 mls @ 440 mls/hr 03/09/21 08:00 03/10/21 09:29 Chloride IV 440 mls/hr Q12H DEZ Administration Vancomycin HCl/Dextrose 1,500 mg in 300 mls @ 200 mls/hr 03/10/21 01:00 03/10/21 05:19 Vancomycin IV Infused Q12H DEZ Infusion Metronidazole 500 mg in 100 mls @ 100 mls/hr 03/09/21 21:15 03/10/21 07:39 Flagyl IV Infused Q8H DEZ Infusion Valproic Acid 500 mg/ Dextrose 55 mls @ 55 mls/hr 03/09/21 23:45 03/10/21 09:28 IV 55 mls/hr BID DEZ Administration Nystatin 1 applic 03/09/21 15:00 03/10/21 08:41 Nystatin Cream 30 Gm TOP 1 applic TID DEZ Administration Ondansetron HCl 4 mg 03/03/21 17:57 03/03/21 18:02 Ondansetron 4 Mg/2 Ml Inj IV 4 mg Q6HR PRN Administration Nausea And Vomiting Sodium Chloride 10 ml 03/08/21 09:00 03/10/21 08:42 Sodium Chloride 0.9% Flush IV 10 ml BID DEZ Administration Tobramycin Sulfate 2 drops 03/05/21 14:30 03/10/21 06:22 Tobramycin 0.3% Ophth Aranza EYE-RIGHT 2 drops Q4H DEZ Administration Objective Labs Result Diagrams: 03/10/21 04:28 03/10/21 04:28 Labs: Laboratory Results - last 24 hr 03/04/21 03/09/21 03/09/21 14:00 12:45 15:00 WBC RBC Hgb Hct MCV MCH MCHC RDW Plt Count Neut % (Auto) Lymph % (Auto) [place] % (Auto) Eos % (Auto) Baso % (Auto) Neut # (Auto) Lymph # (Auto) [place] # (Auto) Eos # (Auto) Baso # (Auto) Total Counted Seg Neutrophils % Band Neutrophils % Lymphocytes % (Manual) Atypical Lymphs % Monocytes % (Manual) Eosinophils % (Manual) Basophils % (Manual) Neutrophils # (Manual) RBC Morphology Hypochromasia Target Cells Sodium Potassium Chloride Carbon Dioxide BUN Creatinine Estimated GFR BUN/Creatinine Ratio Glucose Calcium Phosphorus Magnesium Total Bilirubin Conjugated Bilirubin Unconjugated Bilirubin AST ALT Alkaline Phosphatase Total Protein Albumin Globulin Albumin/Globulin Ratio Urine Color Urine Appearance Urine pH Ur Specific [place] Urine Protein Urine Glucose (UA) Urine Ketones Urine Occult Blood Urine Nitrate Urine Bilirubin Urine Urobilinogen Ur Leukocyte Esterase Urine RBC Urine WBC Ur Squamous Epith Cells Urine Bacteria Urine Yeast Ur Culture Indicated? Vancomycin Peak 58.4 H* Vancomycin Trough 8.7 L HIV-1 RNA (PCR) <40 HIV-1 RNA (PCR) log10 TNP 03/09/21 03/10/21 03/10/21 21:30 04:28 04:28 WBC 8.4 RBC 4.03 Hgb 11.2 L Hct 33.7 L MCV 83.6 MCH 27.9 MCHC 33.4 RDW 16.2 H Plt Count 165 Neut % (Auto) Geospatial Scientist Lymph % (Auto) Geospatial Scientist [place] % (Auto) Geospatial Scientist Eos % (Auto) Geospatial Scientist Baso % (Auto) Geospatial Scientist Neut # (Auto) Geospatial Scientist Lymph # (Auto) Geospatial Scientist [place] # (Auto) Geospatial Scientist Eos # (Auto) Geospatial Scientist Baso # (Auto) Geospatial Scientist Total Counted 100 Seg Neutrophils % 26.0 L Band Neutrophils % 20.0 H Lymphocytes % (Manual) 37.0 Atypical Lymphs % 9.0 H Monocytes % (Manual) 4.0 Eosinophils % (Manual) 3.0 Basophils % (Manual) 1.0 Neutrophils # (Manual) 3864 RBC Morphology Not Reportable Hypochromasia 2+ H Target Cells 2+ H Sodium 141 Potassium 3.1 L Chloride 104 Carbon Dioxide 29 BUN 14 Creatinine 0.59 Estimated GFR > 60.0 BUN/Creatinine Ratio 23.7 H Glucose 104 Calcium 8.8 Phosphorus 3.7 Magnesium 1.8 Total Bilirubin Conjugated Bilirubin Unconjugated Bilirubin AST ALT Alkaline Phosphatase Total Protein Albumin Globulin Albumin/Globulin Ratio Urine Color Yellow Urine Appearance Clear Urine pH 5.0 Ur Specific [place] 1.020 Urine Protein Trace H Urine Glucose (UA) Negative Urine Ketones Negative Urine Occult Blood Trace-intact Urine Nitrate Negative Urine Bilirubin Negative Urine Urobilinogen 0.2 Ur Leukocyte Esterase Negative Urine RBC 5-10/hpf H Urine WBC 5-10/hpf H Ur Squamous Epith Cells 0-1 /hpf Urine Bacteria Occasional (0-1) D Urine Yeast 1-5/hpf H Ur Culture Indicated? Specimen cultured Vancomycin Peak Vancomycin Trough HIV-1 RNA (PCR) HIV-1 RNA (PCR) log10 03/10/21 04:28 WBC RBC Hgb Hct MCV MCH MCHC RDW Plt Count Neut % (Auto) Lymph % (Auto) [place] % (Auto) Eos % (Auto) Baso % (Auto) Neut # (Auto) Lymph # (Auto) [place] # (Auto) Eos # (Auto) Baso # (Auto) Total Counted Seg Neutrophils % Band Neutrophils % Lymphocytes % (Manual) Atypical Lymphs % Monocytes % (Manual) Eosinophils % (Manual) Basophils % (Manual) Neutrophils # (Manual) RBC Morphology Hypochromasia Target Cells Sodium Potassium Chloride Carbon Dioxide BUN Creatinine Estimated GFR BUN/Creatinine Ratio Glucose Calcium Phosphorus Magnesium Total Bilirubin 0.3 Conjugated Bilirubin 0.0 Unconjugated Bilirubin 0.2 AST 38 H ALT 43 H Alkaline Phosphatase 65 Total Protein 5.5 L Albumin 3.0 L Globulin 2.5 Albumin/Globulin Ratio 1.2 Urine Color Urine Appearance Urine pH Ur Specific [place] Urine Protein Urine Glucose (UA) Urine Ketones Urine Occult Blood Urine Nitrate Urine Bilirubin Urine Urobilinogen Ur Leukocyte Esterase Urine RBC Urine WBC Ur Squamous Epith Cells Urine Bacteria Urine Yeast Ur Culture Indicated? Vancomycin Peak Vancomycin Trough HIV-1 RNA (PCR) HIV-1 RNA (PCR) log10 Exam Vital Signs (past 8 hours): - 03/10/21 07:00 Temperature 97.9 F Pulse Rate 92 H Respiratory Rate 24 Blood Pressure 104/59 L Pulse Oximetry 100 Oxygen Delivery Method Room Air Oxygen Flow Rate 0 Quality TeleICU VTE Deep Vein Thrombosis/Pulmonary Embolism Present on Admission: No Assessment & Plan Assessment & Plan narrative: Pneumococcal Meningitis New Onset Seizure Post-ictal state Aspiraton PNA h/o of Lymphoma Recommendations -Continue Keppra and depakote -Ativan prn seizure activity -if increased WBC or new fever, then repeat LP and weldon culture -SPO2 high 90s on RA, aspiration precuations -agree with Unasyn for aspiraton PNA -check sputum culture -Awaiting transfer to [facility] pending bed avilability Time Spent With Patient Critical Care time: I spent a total of [] minutes of critical care time on this patient's care today; this time is exclusive of procedural time.
[2021-03-10 11:44] LABS: COVID19 -Nasal RAPID Negative (Negative)
[2021-03-10] MEDS: ASPIRIN 300 MG SUPP PR (11:53)
[2021-03-10] MEDS: DEXAMETHASONE 10 MG/ML VIAL 4 MG IV (13:31)
--- NOTE | 2021-03-10 14:23 | PM.PN.1 ---
Subjective Subjective Date Patient Seen: 03/10/21 Time Patient Seen: 08:00 Interval history: Overnight she had a witnessed tonic clonic episode that lasted 30 seconds. It aborted with IV ativan. She was started on valproate and continued on keppra. This morning she is lethargic, following commands, protecting airway. She appears to be slightly more awake than a few hours earlier per nursing. Exam Vital Signs (past 8 hours): - 03/10/21 07:00 03/10/21 11:00 Temperature 97.9 F Pulse Rate 92 H 92 H Respiratory Rate 24 26 H Blood Pressure 104/59 L 99/58 L Pulse Oximetry 100 96 Oxygen Delivery Method Room Air Oxygen Flow Rate 0 Narrative Exam Narrative: GEN: somnolent but arousable, following commands PULM: Decreased breath sounds bilaterally CV: Regular rate and rhythm, normal S1-S2 with no extra heart sounds or murmurs appreciated ABD: soft, non-tender, non-distended, with bowel sounds present NEURO: lethargic, moving all extremities, difficult to obtain full neuro exam as patient lethargic Objective Labs Result Diagrams: 03/10/21 04:28 03/10/21 04:28 Labs: Laboratory Results - last 24 hr 03/04/21 03/09/21 03/09/21 14:00 15:00 21:30 WBC RBC Hgb Hct MCV MCH MCHC RDW Plt Count Neut % (Auto) Lymph % (Auto) [place] % (Auto) Eos % (Auto) Baso % (Auto) Neut # (Auto) Lymph # (Auto) [place] # (Auto) Eos # (Auto) Baso # (Auto) Total Counted Seg Neutrophils % Band Neutrophils % Lymphocytes % (Manual) Atypical Lymphs % Monocytes % (Manual) Eosinophils % (Manual) Basophils % (Manual) Neutrophils # (Manual) RBC Morphology Hypochromasia Target Cells Sodium Potassium Chloride Carbon Dioxide BUN Creatinine Estimated GFR BUN/Creatinine Ratio Glucose Calcium Phosphorus Magnesium Total Bilirubin Conjugated Bilirubin Unconjugated Bilirubin AST ALT Alkaline Phosphatase Total Protein Albumin Globulin Albumin/Globulin Ratio Urine Color Yellow Urine Appearance Clear Urine pH 5.0 Ur Specific [place] 1.020 Urine Protein Trace H Urine Glucose (UA) Negative Urine Ketones Negative Urine Occult Blood Trace-intact Urine Nitrate Negative Urine Bilirubin Negative Urine Urobilinogen 0.2 Ur Leukocyte Esterase Negative Urine RBC 5-10/hpf H Urine WBC 5-10/hpf H Ur Squamous Epith Cells 0-1 /hpf Urine Bacteria Occasional (0-1) D Urine Yeast 1-5/hpf H Ur Culture Indicated? Specimen cultured Vancomycin Peak 58.4 H* SARS-CoV-2 (PCR) HIV-1 RNA (PCR) <40 HIV-1 RNA (PCR) log10 TNP 03/10/21 03/10/21 03/10/21 04:28 04:28 04:28 WBC 8.4 RBC 4.03 Hgb 11.2 L Hct 33.7 L MCV 83.6 MCH 27.9 MCHC 33.4 RDW 16.2 H Plt Count 165 Neut % (Auto) Gambling Monitor Lymph % (Auto) Gambling Monitor [place] % (Auto) Gambling Monitor Eos % (Auto) Gambling Monitor Baso % (Auto) Gambling Monitor Neut # (Auto) Gambling Monitor Lymph # (Auto) Gambling Monitor [place] # (Auto) Gambling Monitor Eos # (Auto) Gambling Monitor Baso # (Auto) Gambling Monitor Total Counted 100 Seg Neutrophils % 26.0 L Band Neutrophils % 20.0 H Lymphocytes % (Manual) 37.0 Atypical Lymphs % 9.0 H Monocytes % (Manual) 4.0 Eosinophils % (Manual) 3.0 Basophils % (Manual) 1.0 Neutrophils # (Manual) 3864 RBC Morphology Not Reportable Hypochromasia 2+ H Target Cells 2+ H Sodium 141 Potassium 3.1 L Chloride 104 Carbon Dioxide 29 BUN 14 Creatinine 0.59 Estimated GFR > 60.0 BUN/Creatinine Ratio 23.7 H Glucose 104 Calcium 8.8 Phosphorus 3.7 Magnesium 1.8 Total Bilirubin 0.3 Conjugated Bilirubin 0.0 Unconjugated Bilirubin 0.2 AST 38 H ALT 43 H Alkaline Phosphatase 65 Total Protein 5.5 L Albumin 3.0 L Globulin 2.5 Albumin/Globulin Ratio 1.2 Urine Color Urine Appearance Urine pH Ur Specific [place] Urine Protein Urine Glucose (UA) Urine Ketones Urine Occult Blood Urine Nitrate Urine Bilirubin Urine Urobilinogen Ur Leukocyte Esterase Urine RBC Urine WBC Ur Squamous Epith Cells Urine Bacteria Urine Yeast Ur Culture Indicated? Vancomycin Peak SARS-CoV-2 (PCR) HIV-1 RNA (PCR) HIV-1 RNA (PCR) log10 03/10/21 11:22 WBC RBC Hgb Hct MCV MCH MCHC RDW Plt Count Neut % (Auto) Lymph % (Auto) [place] % (Auto) Eos % (Auto) Baso % (Auto) Neut # (Auto) Lymph # (Auto) [place] # (Auto) Eos # (Auto) Baso # (Auto) Total Counted Seg Neutrophils % Band Neutrophils % Lymphocytes % (Manual) Atypical Lymphs % Monocytes % (Manual) Eosinophils % (Manual) Basophils % (Manual) Neutrophils # (Manual) RBC Morphology Hypochromasia Target Cells Sodium Potassium Chloride Carbon Dioxide BUN Creatinine Estimated GFR BUN/Creatinine Ratio Glucose Calcium Phosphorus Magnesium Total Bilirubin Conjugated Bilirubin Unconjugated Bilirubin AST ALT Alkaline Phosphatase Total Protein Albumin Globulin Albumin/Globulin Ratio Urine Color Urine Appearance Urine pH Ur Specific [place] Urine Protein Urine Glucose (UA) Urine Ketones Urine Occult Blood Urine Nitrate Urine Bilirubin Urine Urobilinogen Ur Leukocyte Esterase Urine RBC Urine WBC Ur Squamous Epith Cells Urine Bacteria Urine Yeast Ur Culture Indicated? Vancomycin Peak SARS-CoV-2 (PCR) Negative HIV-1 RNA (PCR) HIV-1 RNA (PCR) log10 PFSH Medical History Mantle cell lymphoma Social History household members: spouse Smoking Status: Never smoker Assessment & Plan Assessment & Plan narrative: 1.Severe sepsis, secondary to strep pneumo bacteremia and meningitis -manifested by acute renal failure, creatinine 1.37, now improved -white count 16.6, initial lactate 3.4, left shift, procalcitonin markedly elevated at 51.4, with improvement of said parameters -continue IV ceftriaxone 2gm IV q12 and vancomycin, started on March 03 -blood cultures positive for strep pneumonia, making 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 Likely aspiration pneumonia, likely bacterial etiology -continue ceftriaxone, metronidazole added 4. 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 Probable urinary tract infection, resolved -urine culture growing Klebsiella oxytoca, sensitive to ceftriaxone, and has been on ceftriaxone for days 6. Acute kidney injury, resolved -likely related to underlying severe infection -continue IV hydration -will avoid nephrotoxic agent -renal function improving 7. Elevated lipase, abnormal CT -doubt pancreatitis, but will follow closely 8. Hypokalemia -replenishment as needed 9. Right eye conjunctivitis -tobramycin eyedrops started Time Spent With Patient Critical Care time: I spent a total of [35] minutes of critical care time on this patient's care today; this time is exclusive of procedural time. Quality VTE Deep Vein Thrombosis/Pulmonary Embolism Present on Admission: No
[2021-03-10 15:00] VITALS: BP 90/57; PULSE 76; RESP 24; TEMP 36.8; O2SAT 96
--- NOTE | 2021-03-10 15:49 | PT.IPTN ---
Current Diagnoses Sepsis, unspecified organism (03/03/21) Physical Therapy Treatment Note M2 PT-IP Current Condition Start: 03/08/21 10:20 Freq: NEEDED Status: Active Protocol: Document 03/08/21 11:16 AW (Rec: 03/08/21 11:45 AW [id number]) Physical Therapy Current Condition Current Condition Evaluation Date 03/08/21 Treatment Diagnosis sepsis, meningitis, AMS, impaired mobility and gait Onset Date 03/03/21 M3 PT-IP Subjective Start: 03/08/21 10:20 Freq: NEEDED Status: Active Protocol: Document 03/10/21 15:47 AB (Rec: 03/10/21 15:48 AB [id number]) Subjective Physical Therapy Visit Type Type Administrative Note Notes Per rounds: plan is for pt to transfer to [facility] for higher level of care and not appropriate for PT at this time and will d/c pt from PT. M7 PT-IP Assessment and Plan Start: 03/08/21 10:20 Freq: NEEDED Status: Active Protocol: Document 03/10/21 15:47 AB (Rec: 03/10/21 15:49 AB [id number]) PT Summary Assessment and Plan Frequency of Treatment Frequency Of Treatment Discharge
--- NOTE | 2021-03-10 17:21 | DIET.PN1 ---
Dietary Progress Note Assessment: 60y F admitted for pneumococcal meningitis referred to nutrition for poor POs. Pt having tonic clonic seizures, lethargic but protecting airway. Pt with poor POs since admission though some meals 100%. Pt accepted to [facility] for transfer, awaiting bed. Ht: 167.64 cm Wt: 66 kg BMI: 24.2 Last BM: 03/10/21 (03/10/21 05:00) MNA: Bradly Score: 14 Diet: 03/03/21 Breakfast Heart Healthy Diet Diet Modifications: Nutrition Percent Meal Consumed NPO 03/09/21 17:00 Percent Meal Consumed 100% 03/08/21 18:00 Labs: RBC 4.03 X10^6/uL (4.0-5.2) 03/10/21 04:28 Hgb 11.2 g/dL (12.0-16.0) L 03/10/21 04:28 Hct 33.7 % (36-46) L 03/10/21 04:28 Creatinine 0.59 mg/dL (0.52-1.04) 03/10/21 04:28 Lactate 1.2 mmol/L (0.7-2.1) 03/04/21 15:15 Interventions: 1. Kitchen to send ONS Ensure Enlive on meal trays, to encourage sips. 2. If pt does not transfer, recc initiating nutrition support if pts POs remain below 50% EER: 1900kcals (30kcals/kg), 85g PRO (1.3g/kg) Monitoring/Evaluations: following daily Electronically Signed by: Lori Dominguez 03/10/21 17:21 Clinical Dietitian [address] [id number]
--- NOTE | 2021-03-10 17:45 | PM.DS.1 ---
History of Present Illness History of Present Illness Chief complaint: fever/weakness x2 days Narrative: Per Patti Valderrama: Yamile Valle is a 60-year-old female who is brought in by her for possible fever and weakness for 2 days.? Patient is unable to provide a history and this history is directly quoted from the ED note. Patient's states she has just been less active.? She had a fever of 101 F at home.? She did throw up on her way here on the.? She has had several episodes of diarrhea.? She denies headache.? She denies chest pain or shortness of breath.? She denies any abdominal back or flank pain.? Her notes she has a history of meningitis several years ago and he thought this seems somewhat similar.? She also has a history of cancer, she completed her treatment completed her oral medication treatment but does still have a port in place. Head CT in the emergency department was negative for any acute intracranial abnormality however did comment on cerebral volume loss for age, with ?resultant ventricular and sulcal prominence, periventricular and deep white matter chronic small-vessel ischemic changes and intracranial internal carotid artery atherosclerosis.? CT of the chest abdomen and pelvis indicated for ?at stranding surrounding the pancreas with additional fat stranding in the retroperitoneum surrounding the aorta and IVC.? It also noted shotty lymphadenopathy in concerning for pancreatitis though the patient has a normal lipase.? That also commented that this could be consistent with the provided history of lymphoma.? Chest x-ray was negative. Patient is febrile at 100.1, blood pressure 131/78, heart rate 71, respiratory rate 21, oxygen saturation of 96% on room air she weighs 68.1 kg with a BMI of 24.2.? Her WBC is elevated at 18.8, platelet count 143, she has a band count percentage of 26%, metamyelocytes 5%, neutrophil count of 13,000, sodium 139, potassium 2.9, BUN 28, creatinine 1.37 down from 1.68 on admission to the ED, she GFR is 39.1, glucose 162, lactate peaked at 4.1 and is currently 2.2, calcium 8.3, AST 98, ALT 48, ammonia is normal, total creatinine kinase is 343, CK-MB is .3%, and procalcitonin is 51.4.? Urine is grossly positive for UTI and is pending for culture.? Alcohol level was within normal limits. Discharge Providers Provider Date of admission: 03/03/21 20:46 Discharge Date: 03/10/21 Consults: 03/08/21 10:23 Consult to Occupational Therapy Evaluate & Treat Comment: Physician Instructions: Evaluate and treat Consult to Physical Therapy Evaluate & Treat Comment: Physician Instructions: Evaluate and Treat 03/09/21 16:46 Consult to Dietitian, Adult Routine Comment: Reason For Exam: Pt with new onset seizure, poor po intake. Discharge provider: Mikey Ross MD Summary Hospital Course Discharge Diagnosis: 1. Severe sepsis 2. Strep pneumo bacteremia 3. Strep pneumo meningitis 4. Acute metabolic encephalopathy 5. Possible aspiration pneumonia 6. Questionable subacute infarct 7. Acute seizure episodes 8. Urinary tract infection 9. Acute kidney injury 10. Hypokalemia 11. Right eye conjunctivitis 12. Mantle cell lymphoma Hospital Course: Ms. Valle was admitted on 03/03 due to 2 days of fevers, weakness, and confusion. She had a history of meningitis in the past. Initially she had a white count of 16.6, lactate 3.4, procal of 51.4 with KOURTNEY consistent with sepsis. KOURTNEY resolved with treatment. She did get a lumbar puncture on 03/04. CSF WBC 18, glucose <20, total protein 1447, and CSF also showed strep pneumonia antigen positive. CSF cultures were pending on discharge. In addition, she had strep pneumo positive blood cultures on 03/03, which have been negative since then. Urine culture positive for klebsiella, which she did receive more than 3 days of antibiotics. She was initially started on IV antibiotics with vancomycin, ceftriaxone on 03/03. She did not initially get IV steroids. She did get IV dexamethasone 4mg on 03/10. Head CT from 03/03 showed no acute process. MRI of brain on 03/06 showed question of possible small focus of mildly restricted diffusion which was potential small subacture lacumar infarct. She did get FL aspirin on 03/10. ECHO was done which showed no acute process on 03/07. By 03/08 she had improved her mental status. However on 03/09 in the morning she did have a tonic clonic seizure appearing activity, aborted with IV ativan x1, and started on IV keppra. She then overnight 03/09-03/10 had another tonic clonic seizure that was aborted with ativan and was started on valproate after this. There was concern she may have aspirated and she was started on flagyl in addition to the above antibiotics. The morning of 03/10 she remained quite lethargic, with less purposeful movement on her right extremity. Due to this she had repeat head CT on 03/09 which showed no acute process, she had Lumbar and thoracic mri of her spine which showed no acute process. She was noted to have right eye conjunctivitis and ordered for tobramycin. Of note her past medical history includes a history of mantle cell lymphoma, she has a port, her last treatment 11/2020. CT abdomen showed fat stranding around the pancreas and retroperitoneum with lymphadenopathy which was read as consistent with lymphoma. She was transferred to [facility], for consideration of EEG and for higher level of care with ID and neurology specialties. CODE: Full Proxy: Pardeep Valle, spouse, Exam Vital Signs (past 8 hours): - 03/10/21 11:00 03/10/21 15:00 Temperature 98.2 F Pulse Rate 92 H 76 Respiratory Rate 26 H 24 Blood Pressure 99/58 L 90/57 L Pulse Oximetry 96 96 Oxygen Delivery Method Room Air Oxygen Flow Rate 0 Narrative Exam Narrative: GEN: somnolent but arousable, following commands PULM: Decreased breath sounds bilaterally CV: Regular rate and rhythm, normal S1-S2 with no extra heart sounds or murmurs appreciated ABD: soft, non-tender, non-distended, with bowel sounds present NEURO: lethargic, moving all extremities, difficult to obtain full neuro exam as patient lethargic Objective Labs Result Diagrams: 03/10/21 04:28 03/10/21 04:28 Labs: Laboratory Results - last 24 hr 03/04/21 03/09/21 03/10/21 14:00 21:30 04:28 WBC 8.4 RBC 4.03 Hgb 11.2 L Hct 33.7 L MCV 83.6 MCH 27.9 MCHC 33.4 RDW 16.2 H Plt Count 165 Neut % (Auto) Community Liaison Officer Lymph % (Auto) Community Liaison Officer Tucker % (Auto) Community Liaison Officer Eos % (Auto) Community Liaison Officer Baso % (Auto) Community Liaison Officer Neut # (Auto) Community Liaison Officer Lymph # (Auto) Community Liaison Officer Tucker # (Auto) Community Liaison Officer Eos # (Auto) Community Liaison Officer Baso # (Auto) Community Liaison Officer Total Counted 100 Seg Neutrophils % 26.0 L Band Neutrophils % 20.0 H Lymphocytes % (Manual) 37.0 Atypical Lymphs % 9.0 H Monocytes % (Manual) 4.0 Eosinophils % (Manual) 3.0 Basophils % (Manual) 1.0 Neutrophils # (Manual) 3864 RBC Morphology Not Reportable Hypochromasia 2+ H Target Cells 2+ H Sodium Potassium Chloride Carbon Dioxide BUN Creatinine Estimated GFR BUN/Creatinine Ratio Glucose Calcium Phosphorus Magnesium Total Bilirubin Conjugated Bilirubin Unconjugated Bilirubin AST ALT Alkaline Phosphatase Total Protein Albumin Globulin Albumin/Globulin Ratio Urine Color Yellow Urine Appearance Clear Urine pH 5.0 Ur Specific [place] 1.020 Urine Protein Trace H Urine Glucose (UA) Negative Urine Ketones Negative Urine Occult Blood Trace-intact Urine Nitrate Negative Urine Bilirubin Negative Urine Urobilinogen 0.2 Ur Leukocyte Esterase Negative Urine RBC 5-10/hpf H Urine WBC 5-10/hpf H Ur Squamous Epith Cells 0-1 /hpf Urine Bacteria Occasional (0-1) D Urine Yeast 1-5/hpf H Ur Culture Indicated? Specimen cultured SARS-CoV-2 (PCR) HIV-1 RNA (PCR) <40 HIV-1 RNA (PCR) log10 TNP 03/10/21 03/10/21 03/10/21 04:28 04:28 11:22 WBC RBC Hgb Hct MCV MCH MCHC RDW Plt Count Neut % (Auto) Lymph % (Auto) [place] % (Auto) Eos % (Auto) Baso % (Auto) Neut # (Auto) Lymph # (Auto) Tucker # (Auto) Eos # (Auto) Baso # (Auto) Total Counted Seg Neutrophils % Band Neutrophils % Lymphocytes % (Manual) Atypical Lymphs % Monocytes % (Manual) Eosinophils % (Manual) Basophils % (Manual) Neutrophils # (Manual) RBC Morphology Hypochromasia Target Cells Sodium 141 Potassium 3.1 L Chloride 104 Carbon Dioxide 29 BUN 14 Creatinine 0.59 Estimated GFR > 60.0 BUN/Creatinine Ratio 23.7 H Glucose 104 Calcium 8.8 Phosphorus 3.7 Magnesium 1.8 Total Bilirubin 0.3 Conjugated Bilirubin 0.0 Unconjugated Bilirubin 0.2 AST 38 H ALT 43 H Alkaline Phosphatase 65 Total Protein 5.5 L Albumin 3.0 L Globulin 2.5 Albumin/Globulin Ratio 1.2 Urine Color Urine Appearance Urine pH Ur Specific [place] Urine Protein Urine Glucose (UA) Urine Ketones Urine Occult Blood Urine Nitrate Urine Bilirubin Urine Urobilinogen Ur Leukocyte Esterase Urine RBC Urine WBC Ur Squamous Epith Cells Urine Bacteria Urine Yeast Ur Culture Indicated? SARS-CoV-2 (PCR) Negative HIV-1 RNA (PCR) HIV-1 RNA (PCR) log10 PFSH Medical History Mantle cell lymphoma Social History household members: spouse Smoking Status: Never smoker Discharge Plan Discharge Plan Disposition: [facility]TE Deep Vein Thrombosis/Pulmonary Embolism Present on Admission: No
[2021-03-10] MEDS: SODIUM CHLORIDE 0.9% 500 ML 1000 ML IV (18:11)
--- NOTE | 2021-03-10 19:00 | PC.NURSE ---
pt d/c'd to [facility] - she was increasingly responsive verbally- continues with minimal extremity motion , occassionally upper extremity movement to rub face etc- poor appetite PAC accessed and [facility]- transferred at this time to [facility]
== END 2021-03-10 18:30 | disposition short-term general hospital (02) | DRG 871 ==
LOC: ED 17:19 → AC 20:47 → ICU 03-09 09:20 → AC 03-10 13:52 → ICU 03-10 13:52
PROVIDERS: Internal Medicine; Student in an Organized Health Care Education/Training Program; Admitting Provider Nurse Practitioner Family; Emergency Provider Emergency Medicine; Referring Provider Emergency Medicine; Visit Provider Nurse Practitioner Family
DX: A41.9 Sepsis, unspecified organism (principal); G93.41 Metabolic encephalopathy; G00.1 Pneumococcal meningitis; J69.0 Pneumonitis due to inhalation of food and vomit; J15.9 Unspecified bacterial pneumonia; I63.9 Cerebral infarction, unspecified; N17.9 Acute kidney failure, unspecified; N39.0 Urinary tract infection, site not specified; C83.10 Mantle cell lymphoma, unspecified site; R65.20 Severe sepsis without septic shock; R56.9 Unspecified convulsions; B96.1 Klebsiella pneumoniae [K. pneumoniae] as the cause of diseases classified elsewhere; H10.31 Unspecified acute conjunctivitis, right eye; E87.6 Hypokalemia; Z20.822 Contact with and (suspected) exposure to COVID-19
CPT/HCPCS: 36415; 36591; 36600; 51701; 70450; 70553; 71045; 71250; 71275; 72157; 72158; 74176; 80048; 80053; 80074; 80076; 80202; 80320; 81001; 82140; 82150; 82310; 82330; 82550; 82553; 82784; 82805; 82945; 83605; 83690; 83735; 84100; 84132; 84145; 84157; 84484; 85007; 85025; 85027; 85610; 85730; 87040; 87070; 87077; 87086; 87150; 87186; 87205; 87536; 87635; 87899; 89051; 93005; 93010; 93306; 96361; 96365; 96366; 96367; 96368; 96375; 97162; 97167; 97535; 99284; 99285; C9803; A9579; J0295; J0696; J1100; J1200; J1642; J1644; J1940; J1953; J2060; J2405; J2543; J3475; J7121; Q9967